=== PATIENT | male | born 1955 | race Caucasian/White ===

== ENCOUNTER 2016-09-08 19:26 | Emergency (ER) | payer OTHER ==
[~2016-09-08] VITALS: Ht 188 cm; Wt 115.0 kg
[~2016-09-08 19:26] MED LIST: ATOR10 PO; CALA120T PO; CARD8TAB6 PO; CLON.2 PO; HYDR10TA16 PO; LISI10TA PO; NAPR500 PO; RANI150 PO; XANA1TAB6 PO
[2016-09-08 19:27] VITALS: BP 137/79; PULSE 98; RESP 18; TEMP 97.9; O2SAT 98
[2016-09-08] MEDS ORDERED: HYDR-3533 PO ×2 (20:33→20:40)
[2016-09-08] MEDS ORDERED: ROBA750T PO ×2 (20:33→20:40)
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
[2016-09-08] MEDS ORDERED: HYDROmorphone HCL PF 1 MG/ML VIAL IV ONE (20:45)
[2016-09-08] MEDS ORDERED: PROMETHAZINE INJ 25 MG/ML VIAL IM ONE (20:45)
[2016-09-08] MEDS ORDERED: VERA120T3 PO (20:59)
[2016-09-08] MEDS ORDERED: LISI10TA PO (20:59)
[2016-09-08] MEDS ORDERED: ZANT150T2 PO (20:59)
[2016-09-08] MEDS ORDERED: CARD8TAB2 PO (20:59)
[2016-09-08] MEDS ORDERED: XANA1TAB2 PO (20:59)
[2016-09-08] MEDS ORDERED: CLON0.2T PO (20:59)
[2016-09-08 21:21] VITALS: RESP 18
[2016-09-08 21:22] VITALS: BP 141/68
[2017-01-07] MEDS ORDERED: COMMODE 3-IN-11 MIS (12:39)
[2017-01-07] MEDS ORDERED: WHEEMIS3 (12:39)
[2017-01-09] MEDS ORDERED: XANA1TAB2 PO (10:40)
[2017-01-09] MEDS ORDERED: POTA10CA PO (10:40)
[2017-01-09] MEDS ORDERED: DEXA0.5T PO (10:40)
[2017-01-09] MEDS ORDERED: SERT-129 PO (10:40)
[2017-01-09] MEDS ORDERED: GABA100C4 PO (10:40)
[2017-01-09] MEDS ORDERED: QUET1TAB7 PO (10:40)
[2017-01-09] MEDS ORDERED: CEFT2INJ2 IV (10:40)
[2017-01-09] MEDS ORDERED: DILT-60 PO (10:40)
[2017-01-09] MEDS ORDERED: OXYC-392 PO (10:40)
[2017-01-09] MEDS ORDERED: ASPI81TA11 PO (10:40)
[2017-01-09] MEDS ORDERED: ZANT150T2 PO (10:40)
[2017-01-09] MEDS ORDERED: METO25TA3 PO (10:40)
[2017-01-09] MEDS ORDERED: MORP1TAB24 PO (10:40)
[2017-01-09] MEDS ORDERED: DOCU1CAP39 PO (10:40)
[2017-02-07] MEDS ORDERED: MORP1TAB24 PO (13:47)
[2017-02-07] MEDS ORDERED: OXYC-395 PO (13:47)
[2017-02-07] MEDS ORDERED: HYDR12.57 PO (13:47)
== END 2016-09-08 21:23 | disposition home or self-care (01) ==
LOC: NEPB 19:26
DX: M54.5 Low back pain (principal); M19.90 Unspecified osteoarthritis, unspecified site; F41.9 Anxiety disorder, unspecified; E78.00 Pure hypercholesterolemia, unspecified; I10 Essential (primary) hypertension; F17.210 Nicotine dependence, cigarettes, uncomplicated
CPT/HCPCS: 96372; 99283; J1170; J2550

== ENCOUNTER 2016-10-10 14:47 | Emergency (ER) | payer OTHER ==
[~2016-10-10] VITALS: Ht 185.4 cm; Wt 110.0 kg
[~2016-10-10 14:47] MED LIST changes: -ATOR10 PO; -CALA120T PO; +CARD8TAB2 PO; -CARD8TAB6 PO; -CLON.2 PO; +CLON0.2T PO; +HYDR-3533 PO; -HYDR10TA16 PO; -NAPR500 PO; -RANI150 PO; +ROBA750T PO; +VERA120T3 PO; +XANA1TAB2 PO; -XANA1TAB6 PO; +ZANT150T2 PO
[2016-10-10 14:50] VITALS: BP 122/70; PULSE 88; RESP 14; TEMP 98.4; O2SAT 95
[2017-01-07] MEDS ORDERED: WHEEMIS3 (12:39)
[2017-01-07] MEDS ORDERED: COMMODE 3-IN-11 MIS (12:39)
[2017-01-09] MEDS ORDERED: DEXA0.5T PO (10:40)
[2017-01-09] MEDS ORDERED: QUET1TAB7 PO (10:40)
[2017-01-09] MEDS ORDERED: CEFT2INJ2 IV (10:40)
[2017-01-09] MEDS ORDERED: DOCU1CAP39 PO (10:40)
[2017-01-09] MEDS ORDERED: METO25TA3 PO (10:40)
[2017-01-09] MEDS ORDERED: POTA10CA PO (10:40)
[2017-01-09] MEDS ORDERED: ASPI81TA11 PO (10:40)
[2017-01-09] MEDS ORDERED: DILT-60 PO (10:40)
[2017-01-09] MEDS ORDERED: SERT-129 PO (10:40)
[2017-01-09] MEDS ORDERED: MORP1TAB24 PO (10:40)
[2017-01-09] MEDS ORDERED: OXYC-392 PO (10:40)
[2017-01-09] MEDS ORDERED: ZANT150T2 PO (10:40)
[2017-01-09] MEDS ORDERED: XANA1TAB2 PO (10:40)
[2017-01-09] MEDS ORDERED: GABA100C4 PO (10:40)
[2017-02-07] MEDS ORDERED: HYDR12.57 PO (13:47)
[2017-02-07] MEDS ORDERED: MORP1TAB24 PO (13:47)
[2017-02-07] MEDS ORDERED: OXYC-395 PO (13:47)
== END 2016-10-10 22:00 | disposition left against medical advice (07) ==
LOC: NED 14:47
DX: M54.9 Dorsalgia, unspecified (principal); Z53.21 Procedure and treatment not carried out due to patient leaving prior to being seen by health care provider
CPT/HCPCS: 99281

== ENCOUNTER 2016-12-17 14:20 | Inpatient (IN) | payer OTHER ==
[~2016-12-17] VITALS: Ht 188 cm; Wt 114.3 kg
[~2016-12-17 14:20] MED LIST changes: -AMLO10 PO; -ASPI81TA11 PO; -CEFT2INJ2 IV; -COMMODE 3-IN-11 MIS; -DEXA0.5T PO; -DEXA4TAB PO; -DILT-60 PO; -DOCU1CAP39 PO; -GABA100C4 PO; -GADOBENATE DIM PF 529 MG/ML 5 ML VIAL (for RAD MRI) IV ONE; -HYDR12.57 PO; -LISI20TA PO; -METO-309 PO; -METO25TA3 PO; -MORP1CAP62 PO; -MORP1TAB24 PO; -NAPR500T PO; -OXYC-392 PO; -OXYC-395 PO; -POTA10CA PO; -QUET1TAB7 PO; -SERT-129 PO; -TRIA1TAB5 PO; -WHEEMIS3
[2016-12-17 14:22] VITALS: BP_SYST 86; BP_SYST 98; BP_DIAS 57; BP_DIAS 61; PULSE 80; RESP 17; TEMP 98.2; O2SAT 98
[2016-12-17] MEDS ORDERED: SODIUM CHLOR 0.9% 1000 ML INJ 1,000 ML IV SCH (14:26)
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
[2016-12-17] MEDS ORDERED: VANCOMYCIN INJ 1,000 MG in SODIUM CHLOR 0.9% 250 ML INJ 250 ML IV ONE (14:30)
[2016-12-17] MEDS ORDERED: SERT-129 PO (14:32)
[2016-12-17] MEDS ORDERED: TRIA1TAB5 PO (14:32)
[2016-12-17] MEDS ORDERED: LISI20TA PO (14:32)
[2016-12-17] MEDS ORDERED: NAPR500T PO (14:32)
[2016-12-17] MEDS ORDERED: MORP1CAP62 PO (14:33)
[2016-12-17 14:36] VITALS: O2SAT 98
[2016-12-17] MEDS ORDERED: HYDROmorphone HCL PF 1 MG/ML VIAL IV PUSH ONE (14:45)
[2016-12-17 14:50] LABS: AUTOMATED NEUTROPHIL # 12.2 TH/MM3 (1.8-7.7); BASOPHIL # 0.1 TH/MM3 (0-0.2); BASOPHIL % 0.6 % (0.0-2.0); EOSINOPHIL % 0.2 % (0.0-4.0); HEMATOCRIT 34.9 % (39.0-51.0); HEMO FLAGS DIFF FINAL; LYMPH % 8.4 % (9.0-44.0); LYMPHOCYTE # 1.2 TH/MM3 (1.0-4.8); MEAN CELL VOLUME 77.6 FL (80.0-100.0); MEAN CORPUSCULAR HEMOGLOBIN 25.4 PG (27.0-34.0); MEAN CORPUSCULAR HGB CONC 32.8 % (32.0-36.0); MONO % 9.2 % (0.0-8.0); NEUT % 81.6 % (16.0-70.0); PLATELET COUNT 472 TH/MM3 (150-450); RED CELL DISTRIBUTION WIDTH 16.4 % (11.6-17.2); WHITE BLOOD COUNT 14.9 TH/MM3 (4.0-11.0)
[2016-12-17 15:00] LABS: APTT (PATIENT) 27.3 SEC (24.3-30.1); PROTHROMBIN TIME - PATIENT 11.6 SEC (9.8-11.6)
[2016-12-17 15:27] LABS: ALT (GPT) 12 U/L (12-78); ANION GAP 14 MEQ/L (5-15); AST (GOT) 19 U/L (15-37); BICARBONATE 24.6 MEQ/L (21.0-32.0); BLOOD UREA NITROGEN 40 MG/DL (7-18); CHLORIDE 95 MEQ/L (98-107); GLOMERULAR FILTRATION RATE 25 ML/MIN (>89); POTASSIUM 3.8 MEQ/L (3.5-5.1); SODIUM (NA) 134 MEQ/L (136-145)
[2016-12-17 15:29] LABS: ALKALINE PHOSPHATASE 102 U/L (45-117); TOTAL BILIRUBIN ADULT 0.6 MG/DL (0.2-1.0)
[2016-12-17] MEDS ORDERED: VANCOMYCIN INJ 1,000 MG in SODIUM CHLOR 0.9% 250 ML INJ 250 ML IV STA (16:20)
[2016-12-17] MEDS ORDERED: PIPERACIL-TAZO 4.5 GM PREMIX 100 ML IV STA (16:20)
[2016-12-17] MEDS ORDERED: SODIUM CHLOR 0.9% 1000 ML INJ 1,000 ML IV ONE (16:30)
[2016-12-17 16:43] LABS: LACTIC ACID GHOST NOT REPORTABLE
--- NOTE | 2016-12-17 17:29 | PD ---
Physical Exam Exam Limitations: Uncooperative Narrative GENERAL: Well-nourished, well-developed patient. SKIN: Warm and dry. HEAD: Normocephalic and atraumatic. EYES: No injection or drainage. ENT: No nasal drainage noted. NECK: Supple, trachea midline. CARDIOVASCULAR: Regular rate and rhythm RESPIRATORY: no increased effort. No accessory muscle use. GASTROINTESTINAL: Abdomen soft, non-tender, nondistended. NEUROLOGICAL: Awake and alert. Patient able to lift both legs off the bed but states he is having difficulty with this secondary to pain and unable to get a good neuro exam. Notes sensation is grossly intact Data Data Last Documented VS Vital Signs Date Time Temp Pulse Resp B/P Pulse Ox O2 Delivery O2 Flow Rate FiO2 12/17/16 14:36 98 Room Air 12/17/16 14:26 80 17 12/17/16 14:22 98.2 98/57 Orders Complete Blood Count With Diff (12/17/16 14:26) Comprehensive Metabolic Panel (12/17/16 14:26) Prothrombin Time / Inr (Pt) (12/17/16 14:26) Act Partial Throm Time (Ptt) (12/17/16 14:26) Lactic Acid Sepsis Protocol (12/17/16 14:26) Blood Culture (12/17/16 14:26) Ecg Monitoring (12/17/16 14:26) Iv Access Insert/Monitor (12/17/16 14:26) Oximetry (12/17/16 14:26) Vancomycin Inj (Vancomycin Inj) (12/17/16 14:30) Sodium Chlor 0.9% 1000 Ml Inj (Ns 1000 M (12/17/16 14:26) Hydromorphone Pf Inj (Dilaudid Pf Inj) (12/17/16 14:45) Sodium Chlor 0.9% 1000 Ml Inj (Ns 1000 M (12/17/16 16:30) Piperacil-Tazo 4.5 Gm Premix (Zosyn 4.5 (12/17/16 16:20) Vancomycin Inj (Vancomycin Inj) (12/17/16 16:20) NPO (12/17/16 16:20) Consult Neurosurgery (12/17/16 ) Admit Order (Ed Use Only) (12/17/16 16:46) Labs Laboratory Tests Test 4/25/17 4/25/17 14:35 14:40 Prothrombin Time 11.6 SEC Prothromb Time International 1.0 RATIO Ratio Activated Partial 27.3 SEC Thromboplast Time Sodium Level 134 MEQ/L Potassium Level 3.8 MEQ/L Chloride Level 95 MEQ/L Carbon Dioxide Level 24.6 MEQ/L Anion Gap 14 MEQ/L Blood Urea Nitrogen 40 MG/DL Creatinine 2.60 MG/DL Estimat Glomerular Filtration 25 ML/MIN Rate Random Glucose 114 MG/DL Calcium Level 10.1 MG/DL Total Bilirubin 0.6 MG/DL Aspartate Amino Transf 19 U/L (AST/SGOT) Alanine Aminotransferase 12 U/L (ALT/SGPT) Alkaline Phosphatase 102 U/L Total Protein 8.4 GM/DL Albumin 3.1 GM/DL White Blood Count 14.9 TH/MM3 Red Blood Count 4.50 MIL/MM3 Hemoglobin 11.4 GM/DL Hematocrit 34.9 % Mean Corpuscular Volume 77.6 FL Mean Corpuscular Hemoglobin 25.4 PG Mean Corpuscular Hemoglobin 32.8 % Concent Red Cell Distribution Width 16.4 % Platelet Count 472 TH/MM3 Mean Platelet Volume 7.6 FL Neutrophils (%) (Auto) 81.6 % Lymphocytes (%) (Auto) 8.4 % Monocytes (%) (Auto) 9.2 % Eosinophils (%) (Auto) 0.2 % Basophils (%) (Auto) 0.6 % Neutrophils # (Auto) 12.2 TH/MM3 Lymphocytes # (Auto) 1.2 TH/MM3 Monocytes # (Auto) 1.4 TH/MM3 Eosinophils # (Auto) 0.0 TH/MM3 Basophils # (Auto) 0.1 TH/MM3 CBC Comment DIFF FINAL Differential Comment Lactic Acid Level 2.2 mmol/L [facility] Supervised Visit with KEYLA: Yes Interpretation(s) CBC & BMP Diagram 12/17/16 14:35 12/17/16 14:40 MRI with discitis from outpatient, lactic elevation noted Narrative Course I, Dr. stuart, have reviewed the advance practice practitioner's documentation and am in agreement, met with the patient face to face, made the diagnosis, and the medical decision making was done by me. *My assessment and Findings: 61 y/o male presents with abnormal outpatient MRI with discitis without incontinence with pain and weakness. Case discussed with interventional radiology who discuss with orthopedic physician and was recommended to discuss with neurosurgeon. Patient updated and agrees to admission to the hospital with neurosurgery consultation and antibiotic therapy. at bedside, broad-spectrum antibiotics and IV fluids given Sepsis Criteria SIRS Criteria (2 or more): WBC > 83186, < 4000 or > 10% bands Sepsis Criteria (SIRS+source): Infect source susp/known Severe Sepsis (+one): Lactate >[address] Physician Communication [address] Dr[address] Sanabria states to discuss with neurosurgery after discussion with Dr. Celio gaxiola states keep nothing by mouth and will follow and agrees to broad- spectrum antibiotics Dr. morel agrees to admission Diagnosis Primary Impression: Discitis of lumbar region Additional Impression: Osteomyelitis of lumbar spine Admitting Information Admitting Physician Requests: Admit Nancy Stuart MD Dec 17, 2016 17:29
[2016-12-17] MEDS: SODIUM CHLOR 0.9% 1000 ML INJ 1,000 ML IV SCH (17:34)
[2016-12-17] MEDS ORDERED: ACETAMINOPHEN 325 MG TAB PO PRN ×2 (17:45)
[2016-12-17] MEDS ORDERED: NALOXONE HCL 0.4 MG/ML AMP IV PRN (17:45)
[2016-12-17] MEDS ORDERED: MAGNESIUM HYDROXIDE SUSP 30 ML CUP PO PRN (17:45)
[2016-12-17] MEDS ORDERED: ONDANSETRON HCL 4 MG/2 ML VIAL IVP PRN (17:45)
--- NOTE | 2016-12-17 17:51 | HHI.HP ---
[facility] Primary [facility]ician Ricardo Thurston DO Admission Diagnosis discitis Diagnoses: Chief Complaint: Back pain Travel History International Travel<30 Days: No Contact w/Intl Traveler <30 Da: No Traveled to Known Affected Are: No History of Present Illness 61-year-old male with past medical history of discitis/osteomyelitis, HTN, PTSD , hep C, GERD, OA, chronic pain who presented with worsening lower back pain. Currently the patient is oriented to self, knows he is in the hospital, and the years 2016. However the patient currently believes he is in a hospital in [place] and still lives in [place], and he currently lives in [place]. Also states that the month is December. The patient asks that I get the past medical history from his significant other at bedside. The patient's significant other states that they've been together for 20 years and she is his designated decision maker. Reviewed records from previous hospitalization with the patient's significant other. Apparently in September the patient had a mechanical fall on his knees. He does have a history of bilateral knee replacement. He states that he had an x-ray done of his knees and that was fine. However, afterwards he began to have lower back pain. The patient denies any acute injury to his back, or any injuries that could've caused breaks in the skin. His PCP ordered an MRI which showed possible abscess on the lumbar spine with suggestion of discitis/ osteomyelitis. He went to [facility] for treatment. He had a CT-guided drainage of the lumbar abscess, which apparently grew no organisms. The patient was was seen by infectious disease there and given IV ceftriaxone from to 12/08. Apparently since that previous admission he has been doing worse with regards to back pain and weakness. They report that he did not have a follow-up appointment set up with infectious disease. He is seen pain management who has put him on long-acting morphine. He was eventually referred to orthopedic spine surgery with Dr. Mora who ordered a lumbar MRI to assess for clearing of the infection. The patient was referred to the ED because repeat lumbar MRI continues to show signs of discitis/osteomyelitis. The patient complains of pain in his bilateral lower back that radiates down both legs. He denies any numbness or tingling of his legs. He does have a hard time walking due to the back pain. He has weakness of his legs, that he attributes to pain. The patient denies any fever, chills, incontinence, nausea , vomiting, diarrhea. He does report decreased oral intake recently. The patient does admit to me that he injected liquid morphine last year. Interventional radiology was contacted from the ED, reports they're unable to perform drainage of spinal lesion and recommends neurosurgery evaluation. Reportedly IR talked to orthopedics spine surgery as well who agreed. Neurosurgery, Dr. Powell, was contacted who recommended nothing by mouth and a dose of antibiotics. Review of Systems Except as stated in HPI: all other systems reviewed are Neg Past Family Social History Past Medical History Hypertension Anxiety/depression/PTSD GERD Hepatitis C Osteoarthritis with chronic pain Discitis/osteomyelitis of the lumbar spine Past Surgical History Cholecystectomy Bilateral knee replacement Tonsils and adenoids Reported Medications Morphine ER 24 HR (Morphine Sulfate) 20 Mg Caper 20 Mg PO DAILY Sertraline (Sertraline HCl) 100 Mg Tab 100 Mg PO DAILY Lisinopril-Hctz 20-12.5 Mg Tab 1 Tab PO BID Naproxen 500 Mg Tab 500 Mg PO BID Clonidine (Clonidine HCl) 0.2 Mg Tab 0-2 Mg PO DAILY Verapamil (Verapamil HCl) 120 Mg Tab 120 Mg PO Q8H Zantac (Ranitidine HCl) 150 Mg Tab 150 Mg PO DAILY Cardura (Doxazosin Mesylate) 8 Mg Tab 8 Mg PO DAILY Xanax (Alprazolam) 1 Mg Tab 1 Mg PO Q6H PRN Allergies: Coded Allergies: Toradol (Unverified Allergy, Severe, RASH, 12/17/16) Active Ordered Medications Current Medications Medications (Trade) Dose Ordered Sig/Geen Route Start Time Stop Time Status Last Admin (Xanax) 1 mg Q6H PRN PO 12/17/16 17:45 UNV (Zoloft) 100 mg DAILY PO 12/18/16 09:00 UNV Non-Formulary Medication 20 mg DAILY PO 12/18/16 09:00 UNV Non-Formulary Medication 150 mg 150 mg DAILY PO 12/18/16 09:00 UNV (NS 1000 ml Inj) 1,000 ml @ 100 mls/hr Q10H IV 12/17/16 17:34 UNV (NS Flush) 2 ml UNSCH PRN IV FLUSH 12/17/16 17:45 UNV (NS Flush) 2 ml BID IV FLUSH 12/17/16 21:00 UNV (Tylenol) 650 mg Q4H PRN PO 12/17/16 17:45 UNV (Zofran Inj) 4 mg Q6H PRN IVP 12/17/16 17:45 UNV (Colace) 100 mg Q12H PO 12/17/16 17:45 UNV (Milk Of Magnesia Liq) 30 ml Q12H PRN PO 12/17/16 17:45 UNV (Tylenol) 650 mg Q6H PRN PO 12/17/16 17:45 UNV (Roxicodone) 10 mg Q4H PRN PO 12/17/16 17:45 UNV (Roxicodone) 5 mg Q4H PRN PO 12/17/16 17:45 UNV (Narcan Inj) 0.4 mg UNSCH PRN IV 12/17/16 17:45 UNV (Catapres) 0.1 mg Q6H PRN PO 12/17/16 17:45 UNV Family History Father at age 87 and was an alcoholic and a cancer survivor Mother at age 63 after his stroke Social History Lives in apartment with his significant other Occasional tobacco use 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 In no acute distress. Oriented to person, hospital, and year; not oriented to city, month, home address SKIN: Warm and dry. No lesions noted. HEENT: Normocephalic. Pupils equal and round. Mucous membranes pink and moist. CARDIOVASCULAR: Regular rate and rhythm. No murmur appreciated. RESPIRATORY: No accessory muscle use. Clear to auscultation. Breath sounds equal bilaterally. GASTROINTESTINAL: Abdomen soft, non-tender, nondistended. Bowel sounds x4. MUSCULOSKELETAL: No obvious deformities. No clubbing or cyanosis. No edema. Negative straight leg raise. NEUROLOGICAL: Awake and alert. Moves upper and lower extremities spontaneously. Sensation grossly intact in lower extremities. Good strength with dorsi and plantar flexion. Decreased strength at the hips. Upper extremity strength normal. Normal speech. PSYCHIATRIC: A bit confused but appropriate mood and affect; insight and judgment limited. Laboratory Laboratory Tests Test 12/17/16 12/17/16 14:35 14:40 Prothrombin Time 11.6 Prothromb Time International 1.0 Ratio Activated Partial 27.3 Thromboplast Time Sodium Level 134 Potassium Level 3.8 Chloride Level 95 Carbon Dioxide Level 24.6 Anion Gap 14 Blood Urea Nitrogen 40 Creatinine 2.60 Estimat Glomerular Filtration 25 Rate Random Glucose 114 Calcium Level 10.1 Total Bilirubin 0.6 Aspartate Amino Transf 19 (AST/SGOT) Alanine Aminotransferase 12 (ALT/SGPT) Alkaline Phosphatase 102 Total Protein 8.4 Albumin 3.1 White Blood Count 14.9 Red Blood Count 4.50 Hemoglobin 11.4 Hematocrit 34.9 Mean Corpuscular Volume 77.6 Mean Corpuscular Hemoglobin 25.4 Mean Corpuscular Hemoglobin 32.8 Concent Red Cell Distribution Width 16.4 Platelet Count 472 Mean Platelet Volume 7.6 Neutrophils (%) (Auto) 81.6 Lymphocytes (%) (Auto) 8.4 Monocytes (%) (Auto) 9.2 Eosinophils (%) (Auto) 0.2 Basophils (%) (Auto) 0.6 Neutrophils # (Auto) 12.2 Lymphocytes # (Auto) 1.2 Monocytes # (Auto) 1.4 Eosinophils # (Auto) 0.0 Basophils # (Auto) 0.1 CBC Comment DIFF FINAL Differential Comment Lactic Acid Level 2.2 Date/Time Procedure Status Source Growth 12/17/16 14:40 Aerobic Blood Culture Received Blood Peripheral Pending 12/17/16 14:40 Anaerobic Blood Culture Received Blood Peripheral Pending Result Diagram: 12/17/16 1440 12/17/16 1435 Assessment and Plan Assessment and Plan 61-year-old male with past medical history of discitis/osteomyelitis, HTN, PTSD , hep C, GERD, OA, chronic pain who presented with worsening lower back pain L2-3 discitis/osteomyelitis: Failed treatment with IV ceftriaxone. IVDA hx. Previous MRI results as well as MRI 4/25 reviewed. Afebrile. WBC 14.9. Lactic acid 2.2. Associated hypotension and confusion. -Neurosurgery consulted -Consult ID -Continue IV antibiotics -Check ESR and CRP -Pain control with home morphine and oral oxycodone for pain scale -Obtain records from previous hospitalization Acute kidney injury: Likely secondary to decreased oral intake. Creatinine 2.6 , previously 2.25 earlier today, and previously 1.28 in 2009. IVF. Follow-up BMP. Hypotension with history of hypertension: Possibly from infection vs dehydration. Hold home antihypertensives for now. Clonidine as needed. Anxiety/depression/PTSD: Chronic. Continue home Xanax and sertraline. DVT prophylaxis: SCDs. Discussed Condition With Patient and significant other, ED PA, Dr. Pink Attending Statement seen and examined with at bedside- [patient awake but confused per MS- confusion for past 2 - 3 weeks- was admitted and got IV rocephin 2 gm from 10/18- 12/08- completed as OP continent of urine and stools no pain complains awake and alert but confused ff all commands lungs clear regular rhythm abdomen soft moves all extremities equally, sensory grossly intact Encephalopathy- multifactorial- from infection/sepsis/metabolic- KI SIRS- from disciitis ID and neurosurgery consulted Inability to ambulate declining from cane- walker and for the past 5 days unable to get up and ambulate- bed bound still continent of urine and stools per get PT evaluation Kidney insufficiency started on IVF ff BMP d/w her that neurosurgery and ID consulted The exam, history, and the medical decision-making described in the above note were completed with the assistance of the mid-level provider. I reviewed and agree with the findings presented. I attest that I had a [id number] encounter with the patient on the same day, and personally performed and documented my assessment and findings in the medical record. Clemente Verma Dec 17, 2016 17:51 Analy Pink MD Dec 17, 2016 18:47
[2016-12-17] MEDS ORDERED: Vancomycin Consult Pharmacy 1 EA OTHER SCH (18:00)
[2016-12-17 18:15] VITALS: BP 112/59; PULSE 67; RESP 16; O2SAT 96
[2016-12-17 21:28] VITALS: PULSE 67
[2016-12-17 21:35] VITALS: BP 132/73; PULSE 72; RESP 16; TEMP 98.1; O2SAT 95
[2016-12-17] MEDS: SODIUM CHLORIDE 0.9% FLUSH 10 ML FLUSH IV FLUSH SCH (22:52)
[2016-12-17] MEDS: DOCUSATE SODIUM 100 MG CAP PO SCH (22:52)
--- NOTE | 2016-12-17 23:10 | PD.CONS ---
History of Present Illness Service Neurosurgery Consult Requested By Medicine service Reason for Consult Discitis osteomyelitis Primary Care Physician Ricardo Thurston DO Diagnoses: History of Present Illness 61-year-old male who fell at his home in mid September with subsequent onset of progressive low back pain. He was admitted to [facility] towards the end of September and diagnosed with discitis-osteomyelitis and treated with 8 weeks of intravenous Rocephin which was completed approximately 10 days ago. He has continued to have progression of low back pain, and was seen by orthopedic surgery recently and sent for an MRI which was completed earlier today at [facility]. The study findings were reviewed by radiology and orthopedics, and the patient subsequently referred to the emergency room for admission and further evaluation. Review of Systems Constitutional: COMPLAINS OF: Weight loss, DENIES: Fever Eyes: DENIES: Blurred vision, Diplopia Ears, nose, mouth, throat: DENIES: Tinnitus, Hearing loss Respiratory: DENIES: Cough, Sputum production, Shortness of breath Cardiovascular: DENIES: Chest pain, Palpitations Gastrointestinal: DENIES: Abdominal pain, Diarrhea, Nausea Genitourinary: COMPLAINS OF: Urinary frequency, Urinary incontinence Musculoskeletal: COMPLAINS OF: Joint pain, Muscle aches, Back pain, DENIES: Neck pain Hematologic/lymphatic: DENIES: Bruising Neurologic: COMPLAINS OF: Abnormal gait, Headache, Poor Balance Memory loss Past Family Social History Allergies: Coded Allergies: Toradol (Unverified Allergy, Severe, RASH, 12/17/16) Past Medical History Hypertension Hepatitis C Anxiety, depression GERD Past Surgical History Bilateral knee arthroplasty Cholecystectomy Tonsillectomy Reported Medications Reported Meds & Active Scripts Active Reported Morphine ER 24 HR (Morphine Sulfate) 20 Mg Caper 20 Mg PO DAILY Sertraline (Sertraline HCl) 100 Mg Tab 100 Mg PO DAILY Lisinopril-Hctz 20-12.5 Mg Tab 1 Tab PO BID Naproxen 500 Mg Tab 500 Mg PO BID Clonidine (Clonidine HCl) 0.2 Mg Tab 0-2 Mg PO DAILY Verapamil (Verapamil HCl) 120 Mg Tab 120 Mg PO Q8H Zantac (Ranitidine HCl) 150 Mg Tab 150 Mg PO DAILY Cardura (Doxazosin Mesylate) 8 Mg Tab 8 Mg PO DAILY Xanax (Alprazolam) 1 Mg Tab 1 Mg PO Q6H PRN Family History Negative diabetes, cardiac disease History of CVA and his mother, cancer in his father Social History Denies IV drug abuse No alcohol or drug use Smokes cigarettes occasionally Physical Exam Vital Signs Vital Signs Date Time Temp Pulse Resp B/P Pulse Ox O2 Delivery O2 Flow Rate FiO2 12/17/16 21:35 98.1 72 16 132/73 95 12/17/16 18:15 67 16 112/59 96 Room Air 12/17/16 14:36 98 Room Air 12/17/16 14:26 80 17 12/17/16 14:22 98.2 80 17 98/57 98 Physical Exam GENERAL: This is a well-nourished, well-developed patient, in no apparent distress. SKIN: No rashes, ecchymoses or lesions. HEAD: Nontender. EYES: Sclerae are clear and nonicteric. No periorbital edema or ecchymosis ENT: No CSF otorrhea or rhinorrhea. NECK: Supple, nontender, no meningeal signs. CARDIOVASCULAR: Regular rate and rhythm without murmurs, gallops, or rubs. RESPIRATORY: Clear to auscultation. Breath sounds equal bilaterally. No wheezes , rales, or rhonchi. GASTROINTESTINAL: Abdomen soft, non-tender, nondistended. No hepato-splenomegaly , or palpable masses. No guarding. Normal bowel sounds MUSCULOSKELETAL: Extremities without cyanosis, or edema. No joint tenderness, effusion, or edema noted. No calf tenderness. Posterior tibial pulse 2+ bilateral NEUROLOGICAL: Awake and alert Moderate slowing of speech and thought processes Significant diminished recent and remote memory Follow simple commands with some difficulty Answers most simple questions appropriately Appears to have diminished judgment and insight Extraocular movements intact Facial motor movements symmetric Sensation intact light touch all extremities Strength normal major flexion and extension groups as well as hand intrinsics upper extremities Strength decreased 4/5 bilateral iliopsoas, quadriceps, hamstrings with 5 right , 4+ left gastrocsoleus and tibialis anterior Marian's response absent bilateral No ankle clonus Plantar response is neutral bilateral Laboratory Laboratory Tests Test 12/17/16 12/17/16 12/17/16 14:35 14:40 21:43 Prothrombin Time 11.6 Prothromb Time International 1.0 Ratio Activated Partial 27.3 Thromboplast Time Sodium Level 134 Potassium Level 3.8 Chloride Level 95 Carbon Dioxide Level 24.6 Anion Gap 14 Blood Urea Nitrogen 40 Creatinine 2.60 Estimat Glomerular Filtration 25 Rate Random Glucose 114 Calcium Level 10.1 Total Bilirubin 0.6 Aspartate Amino Transf 19 (AST/SGOT) Alanine Aminotransferase 12 (ALT/SGPT) Alkaline Phosphatase 102 C-Reactive Protein 18.00 Total Protein 8.4 Albumin 3.1 White Blood Count 14.9 Red Blood Count 4.50 Hemoglobin 11.4 Hematocrit 34.9 Mean Corpuscular Volume 77.6 Mean Corpuscular Hemoglobin 25.4 Mean Corpuscular Hemoglobin 32.8 Concent Red Cell Distribution Width 16.4 Platelet Count 472 Mean Platelet Volume 7.6 Neutrophils (%) (Auto) 81.6 Lymphocytes (%) (Auto) 8.4 Monocytes (%) (Auto) 9.2 Eosinophils (%) (Auto) 0.2 Basophils (%) (Auto) 0.6 Neutrophils # (Auto) 12.2 Lymphocytes # (Auto) 1.2 Monocytes # (Auto) 1.4 Eosinophils # (Auto) 0.0 Basophils # (Auto) 0.1 CBC Comment DIFF FINAL Differential Comment Erythrocyte Sedimentation Rate 75 Lactic Acid Level 2.2 0.5 Date/Time Procedure Status Source Growth 12/17/16 14:40 Aerobic Blood Culture Received Blood Peripheral Pending 12/17/16 14:40 Anaerobic Blood Culture Received Blood Peripheral Pending Result Diagram: 12/17/16 1440 12/17/16 1435 Imaging 12/17/2016 MRI lumbar spine with and without contrast Expand Beyond images are reviewed. The study reveals significant abnormal signal intensity with enhancement at the L2 and L3 vertebral bodies and disc space. There is apparent inflammatory debris extending from the disc space into the anterior spinal canal posterior to the L2 and L3 vertebral bodies causing some effacement of the ventral lateral thecal sac with AP thecal sack dimension approximately 8 mm at the L2-3 and L3 4 levels. There is severe L3 4 degenerative disc disease loss of intervertebral disc space height Mild to moderate chronic degenerative changes at L4 5 and L5-S1 levels without significant canal or foraminal stenosis.. Assessment and Plan Assessment and Plan Impression: 1. L2-3 discitis-osteomyelitis with mostly moderate canal stenosis. The degree of stenosis does not appear to be sufficient to cause cauda equina syndrome or significant nerve compression. There is some enhancement of the bilateral L4 nerve root extending into the thecal sac with probable nerve inflammation. Recommendations: Continue IV antibiotics per infectious disease recommendations. Discussed with emergency room physician. Obtain records from [facility] repeat L2-3 disc biopsy to assess for persistent active infection. Continue to mobilize cautiously with physical therapy. LSO brace Discussed Condition With Emergency room physician Pravin Powell MD Dec 17, 2016 23:10
[2016-12-18 00:29] LABS: AMPHETAMINE, URINE NEG (NEG); BARBITURATES, URINE NEG (NEG); COCAINE, URINE NEG (NEG)
[2016-12-18 00:39] LABS: BACTERIA, URINE RARE /hpf; BLOOD, URINE MOD (NEG); COMMENT (UR) CULT NOT INDICATED; CULTURE IF INDICATED CULT NOT INDICATED; GLUCOSE,URINE NEG (NEG); KETONE, URINE NEG (NEG); MUCUS URINE FEW /lpf (OCC); NITRITE,URINE NEG (NEG); PH, URINE 5.5 (5.0-8.5); SQUAMOUS EPITHELIAL CELL URINE <1 /hpf (0-5); URINE COLOR YELLOW (YELLW/STRAW)
[2016-12-18 01:31] VITALS: BP 115/63; PULSE 66; RESP 16; TEMP 98; O2SAT 93
[2016-12-18 05:28] VITALS: BP 129/76; PULSE 75; RESP 18; TEMP 97.2; O2SAT 96
[2016-12-18] MEDS: DOCUSATE SODIUM 100 MG CAP PO SCH ×2 (06:20→17:45)
[2016-12-18 08:00] VITALS: BP 157/94; PULSE 80; RESP 19; TEMP 98.3; O2SAT 96
[2016-12-18 08:11] LABS: AUTOMATED NEUTROPHIL # 8.6 TH/MM3 (1.8-7.7); BASOPHIL % 0.4 % (0.0-2.0); EOSINOPHIL # 0.1 TH/MM3 (0-0.4); EOSINOPHIL % 0.8 % (0.0-4.0); HEMATOCRIT 32.7 % (39.0-51.0); HEMO FLAGS DIFF FINAL; LYMPH % 10.9 % (9.0-44.0); LYMPHOCYTE # 1.2 TH/MM3 (1.0-4.8); MEAN CELL VOLUME 76.9 FL (80.0-100.0); MEAN CORPUSCULAR HEMOGLOBIN 25.8 PG (27.0-34.0); MEAN CORPUSCULAR HGB CONC 33.6 % (32.0-36.0); MONO % 11.1 % (0.0-8.0); NEUT % 76.8 % (16.0-70.0); PLATELET COUNT 434 TH/MM3 (150-450); RED BLOOD COUNT 4.26 MIL/MM3 (4.50-5.90); RED CELL DISTRIBUTION WIDTH 16.5 % (11.6-17.2); WHITE BLOOD COUNT 11.2 TH/MM3 (4.0-11.0)
[2016-12-18 08:30] VITALS: PULSE 75
[2016-12-18 08:34] LABS: ALKALINE PHOSPHATASE 98 U/L (45-117); ALT (GPT) 12 U/L (12-78); ANION GAP 10 MEQ/L (5-15); AST (GOT) 31 U/L (15-37); BICARBONATE 26.8 MEQ/L (21.0-32.0); BLOOD UREA NITROGEN 37 MG/DL (7-18); CHLORIDE 99 MEQ/L (98-107); GLOMERULAR FILTRATION RATE 34 ML/MIN (>89); POTASSIUM 3.2 MEQ/L (3.5-5.1); SODIUM (NA) 136 MEQ/L (136-145); TOTAL BILIRUBIN ADULT 0.7 MG/DL (0.2-1.0)
[2016-12-18] MEDS: SODIUM CHLORIDE 0.9% FLUSH 10 ML FLUSH IV FLUSH SCH ×2 (09:00→21:18)
[2016-12-18] MEDS: FAMOTIDINE 20 MG TAB PO SCH (09:36)
[2016-12-18] MEDS: SERTRALINE HCL 100 MG TAB PO SCH (09:36)
[2016-12-18] MEDS: MORPHINE SULFATE 15 MG CONTROLLED RELEASE TAB PO SCH ×2 (09:47→21:18)
--- NOTE | 2016-12-18 10:05 | HHI.PR ---
Subjective Remarks minimal back pain patient voiding spontaneously- no incontinence had a good BM this am history of sciatica no LE numbness or weakness a x ox 3 Objective Vitals Vital Signs Date Time Temp Pulse Resp B/P Pulse Ox O2 Delivery O2 Flow Rate FiO2 12/18/16 08:00 98.3 80 19 157/94 96 12/18/16 05:28 97.2 75 18 129/76 96 12/18/16 01:31 98.0 66 16 115/63 93 12/17/16 21:35 98.1 72 16 132/73 95 12/17/16 21:28 67 12/17/16 18:15 67 16 112/59 96 Room Air 12/17/16 14:36 98 Room Air 12/17/16 14:26 80 17 12/17/16 14:22 98.2 80 17 98/57 98 I/O 12/17/16 12/17/16 12/17/16 12/18/16 12/18/16 12/18/16 07:00 15:00 23:00 07:00 15:00 23:00 Intake Total 150 ml 1018 ml Output Total 200 ml 600 ml Balance -50 ml 418 ml Intake Oral 150 ml 200 ml IV Total 818 ml Output Urine Total 200 ml 600 ml # Bowel Movements 0 0 Result Diagram: 12/18/1671712/18/16717 Objective Remarks awake and alert, oriented x 3 anicteric no nuchal rigidity lungs clear regular rhythm abdomen soft, good bowel sounds extremities no edema- motor 5/5, grossly no sensory deficits, ++ DTRs A/P Assessment and Plan 61-year-old male with past medical history of discitis/osteomyelitis, HTN, PTSD , hep C, GERD, OA, chronic pain who presented with worsening lower back pain Encephalopathy- confusion- multifactorial-- improved likely from infection/sepsis/metabolic- KI SIRS- History of L2-L3 disciitis/OM- with modferate canal stenosis elevated ESR, CRP ID consulted- for need for antibiotics recommendations neurosurgery will be ff Inability to ambulate declining from cane- walker and for the past 5 days unable to get up and ambulate- bed bound- No fecal or urinary incontinence -PT consulted Acute Kidney insufficiency- non oliguric continue on IVF creatinine trending down Anxiety/depression/PTSD: Chronic. Continue home Xanax and sertraline. DVT prophylaxis: SCDs. Analy Pink MD Dec 18, 2016 10:05 moves all extremities equally, sensory grossly intact Encephalopathy- multifactorial- from infection/sepsis/metabolic- KI SIRS- from disciitis ID and neurosurgery consulted Inability to ambulate declining from cane- walker and for the past 5 days unable to get up and ambulate- bed bound still continent of urine and stools per get PT evaluation Kidney insufficiency started on IVF ff BMP d/w him that neurosurgery and ID consulted The exam, history, and the medical decision-making described in the above note were completed with the assistance of the mid-level provider. I reviewed and agree with the findings presented. I attest that I had a [id number] encounter with the patient on the same day, and personally performed and documented my assessment and findings in the medical record. Analy Pink MD Dec 18, 2016 10:05
[2016-12-18 12:00] VITALS: BP 130/86; PULSE 75; RESP 19; TEMP 97.5; O2SAT 98
--- NOTE | 2016-12-18 12:53 | PD.CONS ---
History of Present Illness Service Infectious disease Consult Requested By Dr Ben Pink Reason for Consult Evaluate patient with discitis Primary Care Physician Ricardo Thurston DO Diagnoses: History of Present Illness Patient seen and examined. Records reviewed. Patient is a 61-year-old male, presented to the hospital after he had an MRI of his lumbar spine. Problem started back in September when he started having problems with back pain. They initially presented to [place] at that time, but apparently waited for a while in the emergency room, and they subsequently left and presented to [facility] where he was admitted. He was found to have L2-L3 discitis, osteomyelitis. He was worked up, and underwent aspiration of the abnormality. According to the the patient was already on antibiotics by the time they did the biopsy. The Gram stain of the aspiration showed rare gram-negative rods, but the culture was negative. Infectious disease saw the patient during that hospitalization, and the patient was given IV Rocephin which he completed December 08. The patient was apparently going to [facility] on a daily basis and getting his IV antibiotic. Aspiration did not have any PICC line at that time. He continued to have the back pain, and his primary care physician referred him to on her orthopedic surgeon who didn't ordered the MRI. MRI was abnormal, and he was instructed to present to the hospital for further evaluation and treatment. There has been no fever or chills. Patient has been having problem with urination in that it takes a while for him to urinate. He never had any problem with urinary retention. He denies any respiratory complaint. He has not had any diarrhea. His repeat MRI showing evidence of discitis and osteomyelitis, and there is also some description of under a ventral epidural abscess. There is some spinal stenosis. Neurosurgery had seen the patient. Patient received vancomycin and Zosyn yesterday at around 7:00 PM. Since admission he has not been febrile. His WBC is elevated. Sedimentation rate is 75, and C-reactive protein is 18. Infectious disease consultation has been requested to evaluate the patient. Review of Systems Constitutional: COMPLAINS OF: Weight loss, Change in appetite, DENIES: Fever, Chills Eyes: DENIES: Eye pain Ears, nose, mouth, throat: DENIES: Oral lesions, Throat pain, Ear Pain, Sinus Pain, Toothache Respiratory: DENIES: Cough, Shortness of breath Cardiovascular: DENIES: Chest pain, Palpitations, Syncope Gastrointestinal: DENIES: Abdominal pain, Diarrhea, Nausea, Vomiting, Difficulty Swallowing Genitourinary: COMPLAINS OF: Urgency, DENIES: Dysuria Musculoskeletal: COMPLAINS OF: Joint Swelling, Back pain, DENIES: Neck pain Integumentary: DENIES: Rash Hematologic/lymphatic: DENIES: Lymphadenopathy Immunologic/allergic: DENIES: Urticaria Neurologic: DENIES: Headache, Localized weakness Psychiatric: DENIES: Confusion, Hallucinations Past Family Social History Allergies: Coded Allergies: Toradol (Unverified Allergy, Severe, RASH, 12/17/16) Past Medical History Hypertension Anxiety/depression/PTSD GERD Hepatitis C Osteoarthritis with chronic pain Discitis/osteomyelitis of the lumbar spine Past Surgical History Cholecystectomy Bilateral knee replacement Tonsils and adenoids Active Ordered Medications Tylenol Xanax Clonidine Colace Pepcid MOM Morphine Zofran Oxycodone Zoloft Vanco and Zosyn yesterday at 7 pm Social History Lives in apartment with his significant other Smokes 3 packs in 1 week 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 No generalized rash or ecchymosis. HEAD: Atraumatic. Normocephalic. No temporal or scalp tenderness. EYES: [place] conjunctivae, no petechia or hemorrhage. Pupils equal round and reactive. Extraocular motions intact. No scleral icterus. No injection or drainage. ENT: Nose without bleeding, or purulent drainage or septal hematoma. Moist oral mucosa. Throat without erythema, or exudate. Uvula midline. Airway patent. No teeth in the upper part. NECK: Trachea midline. No JVD . Has an indurated area below L submandibular area, that is not tender. Supple, nontender, no meningeal signs. CARDIOVASCULAR: Regular rate and rhythm without gallops, or rubs. ?soft murmur at base of the heart RESPIRATORY: Clear to auscultation. Breath sounds equal bilaterally. No wheezes , rales, or rhonchi. GASTROINTESTINAL: Abdomen soft, non-tender, nondistended. No hepato-splenomegaly , or palpable masses. No guarding. No rebound. Bowel sounds are present and normoactive. MUSCULOSKELETAL: Extremities without clubbing, cyanosis, or edema. No calf tenderness. He has scars in both knees compatible with his surgical history. The left knee is larger compared to the right knee. Has no pain in movement of his knee joints or hip joints. NEUROLOGICAL: Awake and alert. Cranial nerves II through XII intact. Five out of 5 muscle strength in all muscle groups. Normal speech. PSYCH: Normal affect, calm and cooperative. BACK: spine tenderness in lumbar region LINE: PIV with no evidence of infection Laboratory Laboratory Tests Test 12/17/16 12/17/16 12/17/16 12/18/16 14:35 14:40 21:43 00:10 Prothrombin Time 11.6 Prothromb Time International 1.0 Ratio Activated Partial 27.3 Thromboplast Time Sodium Level 134 Potassium Level 3.8 Chloride Level 95 Carbon Dioxide Level 24.6 Anion Gap 14 Blood Urea Nitrogen 40 Creatinine 2.60 Estimat Glomerular Filtration 25 Rate Random Glucose 114 Calcium Level 10.1 Total Bilirubin 0.6 Aspartate Amino Transf 19 (AST/SGOT) Alanine Aminotransferase 12 (ALT/SGPT) Alkaline Phosphatase 102 C-Reactive Protein 18.00 Total Protein 8.4 Albumin 3.1 White Blood Count 14.9 Red Blood Count 4.50 Hemoglobin 11.4 Hematocrit 34.9 Mean Corpuscular Volume 77.6 Mean Corpuscular Hemoglobin 25.4 Mean Corpuscular Hemoglobin 32.8 Concent Red Cell Distribution Width 16.4 Platelet Count 472 Mean Platelet Volume 7.6 Neutrophils (%) (Auto) 81.6 Lymphocytes (%) (Auto) 8.4 Monocytes (%) (Auto) 9.2 Eosinophils (%) (Auto) 0.2 Basophils (%) (Auto) 0.6 Neutrophils # (Auto) 12.2 Lymphocytes # (Auto) 1.2 Monocytes # (Auto) 1.4 Eosinophils # (Auto) 0.0 Basophils # (Auto) 0.1 CBC Comment DIFF FINAL Differential Comment Erythrocyte Sedimentation Rate 75 Lactic Acid Level 2.2 0.5 Urine Color YELLOW Urine Turbidity HAZY Urine pH 5.5 Urine Specific [place] 1.023 Urine Protein 30 Urine Glucose (UA) NEG Urine Ketones NEG Urine Occult Blood MOD Urine Nitrite NEG Urine Bilirubin NEG Urine Urobilinogen LESS THAN 2.0 Urine Leukocyte Esterase NEG Urine RBC 1 Urine WBC 2 Urine Squamous Epithelial <1 Cells Urine Bacteria RARE Urine Mucus FEW Microscopic Urinalysis Comment CULT NOT INDICATED Urine Opiates Screen POS Urine Barbiturates Screen NEG Urine Amphetamines Screen NEG Urine Benzodiazepines Screen POS Urine Cocaine Screen NEG Urine Cannabinoids Screen NEG Test 12/18/16 07:18 White Blood Count 11.2 Red Blood Count 4.26 Hemoglobin 11.0 Hematocrit 32.7 Mean Corpuscular Volume 76.9 Mean Corpuscular Hemoglobin 25.8 Mean Corpuscular Hemoglobin 33.6 Concent Red Cell Distribution Width 16.5 Platelet Count 434 Mean Platelet Volume 7.7 Neutrophils (%) (Auto) 76.8 Lymphocytes (%) (Auto) 10.9 Monocytes (%) (Auto) 11.1 Eosinophils (%) (Auto) 0.8 Basophils (%) (Auto) 0.4 Neutrophils # (Auto) 8.6 Lymphocytes # (Auto) 1.2 Monocytes # (Auto) 1.2 Eosinophils # (Auto) 0.1 Basophils # (Auto) 0.0 CBC Comment DIFF FINAL Differential Comment Sodium Level 136 Potassium Level 3.2 Chloride Level 99 Carbon Dioxide Level 26.8 Anion Gap 10 Blood Urea Nitrogen 37 Creatinine 1.99 Estimat Glomerular Filtration 34 Rate Random Glucose 100 Calcium Level 9.4 Total Bilirubin 0.7 Aspartate Amino Transf 31 (AST/SGOT) Alanine Aminotransferase 12 (ALT/SGPT) Alkaline Phosphatase 98 Total Protein 7.8 Albumin 2.8 Date/Time Procedure Status Source Growth 12/17/16 14:40 Aerobic Blood Culture - Preliminary Resulted Blood Peripheral NO GROWTH IN 1 DAY 12/17/16 14:40 Anaerobic Blood Culture - Preliminary Resulted Blood Peripheral NO GROWTH IN 1 DAY Result Diagram: 12/18/16 0718 12/18/16 0718 Assessment and Plan Assessment and Plan IMPRESSION L2-L3 discitis, osteomyelitis, S/P Rx with IV Rocephin - initial C/S neg, but G/S with rare GNR - worse clinically - repeat scan, findings ?same as previous MRI RECOMMENDATION Repeat 2 BC D/C all Abx Repeat aspirate of back - nned to wait 48-72 hours from last Abx dose which was give 12/17 at 7 pm Bladder scan to eval for retention Monitor progress Will determine course of Abx depending on results of work-up I will follow along with you Thank you for this consultation Discussed Condition With Explained plan to the patient and Discussed with RN9 Audrey Flores MD Dec 18, 2016 12:52
--- NOTE | 2016-12-18 15:44 | HHI.NSPN ---
(Mesfin Elaine) Note Status Status: Progress Note (Mesfin Elaine) Interval History Interval History 12/17: 61-year-old male who fell at his home in mid September with subsequent onset of progressive low back pain. He was admitted to [facility] towards the end of September and diagnosed with discitis-osteomyelitis and treated with 8 weeks of intravenous Rocephin which was completed approximately 10 days ago. He has continued to have progression of low back pain, and was seen by orthopedic surgery recently and sent for an MRI which was completed earlier today at [facility]. The study findings were reviewed by radiology and orthopedics, and the patient subsequently referred to the emergency room for admission and further evaluation. 12/18: Patient still with pain to the low back with radiation to the groins, numbness to groins persist. (Mesfin Elaine) Labs, Micro, & Vital Signs Results Allergies Coded Allergies Type Severity Reaction Last Updated Verified Toradol Allergy Severe RASH 12/17/16 No 12/16////// 06:00 18:00 06:00 18:00 06:00 18:00 Intake Total 968 ml 200 ml Output Total 200 ml 600 ml Balance 768 ml -400 ml Intake Oral 150 ml 200 ml IV Total 818 ml 0 ml Output Urine Total 200 ml 600 ml # Bowel Movements 0 0 Laboratory Tests Test 12/17/16 12/17/16 12/17/16 12/18/16 14:35 14:40 21:43 00:10 Prothrombin Time 11.6 SEC Prothromb Time International 1.0 RATIO Ratio Activated Partial 27.3 SEC Thromboplast Time Sodium Level 134 MEQ/L Potassium Level 3.8 MEQ/L Chloride Level 95 MEQ/L Carbon Dioxide Level 24.6 MEQ/L Anion Gap 14 MEQ/L Blood Urea Nitrogen 40 MG/DL Creatinine 2.60 MG/DL Estimat Glomerular Filtration 25 ML/MIN Rate Random Glucose 114 MG/DL Calcium Level 10.1 MG/DL Total Bilirubin 0.6 MG/DL Aspartate Amino Transf 19 U/L (AST/SGOT) Alanine Aminotransferase 12 U/L (ALT/SGPT) Alkaline Phosphatase 102 U/L C-Reactive Protein 18.00 MG/DL Total Protein 8.4 GM/DL Albumin 3.1 GM/DL White Blood Count 14.9 TH/MM3 Red Blood Count 4.50 MIL/MM3 Hemoglobin 11.4 GM/DL Hematocrit 34.9 % Mean Corpuscular Volume 77.6 FL Mean Corpuscular Hemoglobin 25.4 PG Mean Corpuscular Hemoglobin 32.8 % Concent Red Cell Distribution Width 16.4 % Platelet Count 472 TH/MM3 Mean Platelet Volume 7.6 FL Neutrophils (%) (Auto) 81.6 % Lymphocytes (%) (Auto) 8.4 % Monocytes (%) (Auto) 9.2 % Eosinophils (%) (Auto) 0.2 % Basophils (%) (Auto) 0.6 % Neutrophils # (Auto) 12.2 TH/MM3 Lymphocytes # (Auto) 1.2 TH/MM3 Monocytes # (Auto) 1.4 TH/MM3 Eosinophils # (Auto) 0.0 TH/MM3 Basophils # (Auto) 0.1 TH/MM3 CBC Comment DIFF FINAL Differential Comment Erythrocyte Sedimentation Rate 75 mm/hr Lactic Acid Level 2.2 mmol/L 0.5 mmol/L Urine Color YELLOW Urine Turbidity HAZY Urine pH 5.5 Urine Specific [place] 1.023 Urine Protein 30 mg/dL Urine Glucose (UA) NEG mg/dL Urine Ketones NEG mg/dL Urine Occult Blood MOD Urine Nitrite NEG Urine Bilirubin NEG Urine Urobilinogen LESS THAN 2.0 MG/DL Urine Leukocyte Esterase NEG Urine RBC 1 /hpf Urine WBC 2 /hpf Urine Squamous Epithelial <1 /hpf Cells Urine Bacteria RARE /hpf Urine Mucus FEW /lpf Microscopic Urinalysis Comment CULT NOT INDICATED Urine Opiates Screen POS Urine Barbiturates Screen NEG Urine Amphetamines Screen NEG Urine Benzodiazepines Screen POS Urine Cocaine Screen NEG Urine Cannabinoids Screen NEG Test 12/18/16 07:18 White Blood Count 11.2 TH/MM3 Red Blood Count 4.26 MIL/MM3 Hemoglobin 11.0 GM/DL Hematocrit 32.7 % Mean Corpuscular Volume 76.9 FL Mean Corpuscular Hemoglobin 25.8 PG Mean Corpuscular Hemoglobin 33.6 % Concent Red Cell Distribution Width 16.5 % Platelet Count 434 TH/MM3 Mean Platelet Volume 7.7 FL Neutrophils (%) (Auto) 76.8 % Lymphocytes (%) (Auto) 10.9 % Monocytes (%) (Auto) 11.1 % Eosinophils (%) (Auto) 0.8 % Basophils (%) (Auto) 0.4 % Neutrophils # (Auto) 8.6 TH/MM3 Lymphocytes # (Auto) 1.2 TH/MM3 Monocytes # (Auto) 1.2 TH/MM3 Eosinophils # (Auto) 0.1 TH/MM3 Basophils # (Auto) 0.0 TH/MM3 CBC Comment DIFF FINAL Differential Comment Sodium Level 136 MEQ/L Potassium Level 3.2 MEQ/L Chloride Level 99 MEQ/L Carbon Dioxide Level 26.8 MEQ/L Anion Gap 10 MEQ/L Blood Urea Nitrogen 37 MG/DL Creatinine 1.99 MG/DL Estimat Glomerular Filtration 34 ML/MIN Rate Random Glucose 100 MG/DL Calcium Level 9.4 MG/DL Total Bilirubin 0.7 MG/DL Aspartate Amino Transf 31 U/L (AST/SGOT) Alanine Aminotransferase 12 U/L (ALT/SGPT) Alkaline Phosphatase 98 U/L Total Protein 7.8 GM/DL Albumin 2.8 GM/DL Constitutional Vital Signs Date Time Temp Pulse Resp B/P Pulse Ox O2 Delivery O2 Flow Rate FiO2 12/18/16 12:00 97.5 75 19 130/86 98 12/18/16 08:00 98.3 80 19 157/94 96 12/18/16 05:28 97.2 75 18 129/76 96 12/18/16 01:31 98.0 66 16 115/63 93 12/17/16 21:35 98.1 72 16 132/73 95 12/17/16 21:28 67 12/17/16 18:15 67 16 112/59 96 Room Air 12/18/16 07:00 Intake Total 1168 ml Output Total 800 ml Balance 368 ml (Mesfin Elaine) Review of Systems/Exam ROS Constitutional: Denies any fever or sweats. Neuro: Numbness from lateral back around to groins bilaterally. Denies any headache or dizziness. Resp: Denies any shortness of breath or productive cough. Cardiac: Denies any chest pain, palpitations or irregular heart beat. GI: Denies any abdominal pain, nausea, vomiting or bowel incontinence. : Denies any bladder incontinence. Back: Pain across lower back. Extremities: Denies any weakness or pain to the arms or legs. Exam Constitutional: Well developed male, appears stated age, appears to be in pain but not distressed. HEENT: Normocephalic, atraumatic. PERRLA, EOM intact. Resp: CTAB w/o W/R/R, equal excursion, non-laboured, on RA. CV: S1S2 w/RRR w/o M/G/R, cap refill < 2 sec, radial & pedal pulses 2+ bilaterally, no pedal edema. GI: Abdomen soft, nontender, positive bowel sounds, no palpable masses or organomegaly. Extremities: Extremities normal, NTTP, no evident discolouration, deformity or clubbing. Back: TTP across lower back laterally. Neuro: AAOx3. Speech clear but with slow thought process, doesn't always answer question appropriately. Follows commands. Motor function 5/5 all major muscle flexion & extension groups. Decreased sensation from lateral lower back around to groin bilaterally. Face symmetrical. (Mesfin Elaine) Medications Current Medications Current Medications Medications (Trade) Dose Ordered Sig/Gene Route Start Time Stop Time Status Last Admin (Xanax) 1 mg Q6H PRN PO 12/17/16 17:45 (Zoloft) 100 mg DAILY PO 12/18/16 09:00 12/18/16 09:36 (Oramorph Sr) 15 mg BID PO 12/18/16 09:00 12/18/16 09:47 Famotidine 20 mg 20 mg DAILY PO 12/18/16 09:00 12/18/16 09:36 (NS 1000 ml Inj) 1,000 ml @ 100 mls/hr Q10H IV 12/17/16 17:34 12/17/16 17:34 (NS Flush) 2 ml UNSCH PRN IV FLUSH 12/17/16 17:45 (NS Flush) 2 ml BID IV FLUSH 12/17/16 21:00 12/18/16 09:00 (Tylenol) 650 mg Q4H PRN PO 12/17/16 17:45 (Zofran Inj) 4 mg Q6H PRN IVP 12/17/16 17:45 (Colace) 100 mg Q12H PO 12/17/16 17:45 12/18/16 06:20 (Milk Of [place] Liq) 30 ml Q12H PRN PO 12/17/16 17:45 (Tylenol) 650 mg Q6H PRN PO 12/17/16 17:45 (Roxicodone) 10 mg Q4H PRN PO 12/17/16 17:45 12/18/16 14:12 (Roxicodone) 5 mg Q4H PRN PO 12/17/16 17:45 (Narcan Inj) 0.4 mg UNSCH PRN IV 12/17/16 17:45 (Catapres) 0.1 mg Q6H PRN PO 12/17/16 17:45 (Mesfin Elaine) Medical Decision Making MDM Remarks Impression: L2-3 discitis-osteomyelitis with mostly moderate canal stenosis. The degree of stenosis does not appear to be sufficient to cause cauda equina syndrome or significant nerve compression. There is some enhancement of the bilateral L4 nerve root extending into the thecal sac with probable nerve inflammation. ( Mesfin Elaine) Plan Plan Remarks ID to repeat aspiration of back 48-72 hrs from last abx dose on 12/17 at 1900 D/C all abx at present Future abx per work up Repeat blood cultures Obtain records from [facility] Continue to mobilize cautiously with physical therapy LSO brace (Mesfin Elaine) Attending Statement I have personally seen and examined the patient on the date of this note. Pertinent documentation and study results have been reviewed by the undersigned. I have personally developed the treatment plan and performed medical decision making. Agree with findings, exam, and treatment plan as noted above. Infectious disease recommendations noted. (Pravin Powell MD) Mesfin Elaine Dec 18, 2016 15:44 Pravin Powell MD Dec 18, 2016 17:57
[2016-12-18] MEDS ORDERED: VANCOMYCIN 1,500 MG/NS 500 ML IV SCH ×2 (19:00)
[2016-12-18 20:00] VITALS: BP 177/90; PULSE 85; RESP 20; TEMP 98.3; O2SAT 96
[2016-12-18] MEDS: SODIUM CHLOR 0.9% 1000 ML INJ 1,000 ML IV SCH (21:13)
[2016-12-19] VITALS: BP 148/84; PULSE 75; RESP 20; TEMP 98.1; O2SAT 97
[2016-12-19 03:00] VITALS: PULSE 82
[2016-12-19 04:00] VITALS: BP 177/98; PULSE 78; RESP 20; TEMP 98.1; O2SAT 97
[2016-12-19] MEDS: DOCUSATE SODIUM 100 MG CAP PO SCH ×2 (05:45→16:57)
[2016-12-19] MEDS: SODIUM CHLOR 0.9% 1000 ML INJ 1,000 ML IV SCH ×2 (07:43→19:34)
[2016-12-19] MEDS: SODIUM CHLORIDE 0.9% FLUSH 10 ML FLUSH IV FLUSH SCH ×2 (07:44→20:59)
[2016-12-19 08:00] VITALS: BP 118/83; PULSE 73; PULSE 86; RESP 20; TEMP 98; O2SAT 98
[2016-12-19] MEDS: FAMOTIDINE 20 MG TAB PO SCH (08:03)
[2016-12-19] MEDS: SERTRALINE HCL 100 MG TAB PO SCH (08:03)
[2016-12-19] MEDS: MORPHINE SULFATE 15 MG CONTROLLED RELEASE TAB PO SCH ×2 (08:05→20:58)
--- NOTE | 2016-12-19 11:47 | HHI.NSPN ---
(Mesfin Elaine) Note Status Status: Progress Note (Mesfin Elaine) Interval History Interval History 12/17: 61-year-old male who fell at his home in mid September with subsequent onset of progressive low back pain. He was admitted to [facility] towards the end of September and diagnosed with discitis-osteomyelitis and treated with 8 weeks of intravenous Rocephin which was completed approximately 10 days ago. He has continued to have progression of low back pain, and was seen by orthopedic surgery recently and sent for an MRI which was completed earlier today at [facility]. The study findings were reviewed by radiology and orthopedics, and the patient subsequently referred to the emergency room for admission and further evaluation. 12/18: Patient still with pain to the low back with radiation to the groins, numbness to groins persist. 12/19: Patient awake & alert. Still with low back pain and numbness to the groins. Fixated on not receiving his home medications. (Mesfin Elaine) Labs, Micro, & Vital Signs Constitutional Vital Signs Date Time Temp Pulse Resp B/P Pulse Ox O2 Delivery O2 Flow Rate FiO2 12/19/16 08:00 86 12/19/16 08:00 98.0 73 20 118/83 98 12/19/16 07:15 Room Air 12/19/16 04:00 98.1 78 20 177/98 97 12/19/16 03:00 82 12/19/16 00:00 98.1 75 20 148/84 97 12/18/16 21:22 Room Air 12/18/16 20:00 98.3 85 20 177/90 96 12/18/16 12:00 97.5 75 19 130/86 98 12/19/16 07:00 Intake Total 1080 ml Output Total 1800 ml Balance -720 ml (Mesfin Elaine) Review of Systems/Exam ROS Constitutional: Denies any fever or sweats. Neuro: Numbness from lateral back around to groins bilaterally. Denies any headache or dizziness. Resp: Denies any shortness of breath or productive cough. Cardiac: Denies any chest pain, palpitations or irregular heart beat. GI: Denies any abdominal pain, nausea, vomiting or bowel incontinence. : Denies any bladder incontinence. Back: Pain across lower back. Extremities: Denies any weakness or pain to the arms or legs. Exam Constitutional: Well developed male, appears stated age, appears to be in pain but not distressed. HEENT: Normocephalic, atraumatic. PERRLA, EOM intact. Resp: CTAB w/o W/R/R, equal excursion, non-laboured, on RA. CV: S1S2 w/RRR w/o M/G/R, cap refill < 2 sec, radial & pedal pulses 2+ bilaterally, no pedal edema. GI: Abdomen soft, nontender, positive bowel sounds, no palpable masses or organomegaly. Extremities: Extremities normal, NTTP, no evident discolouration, deformity or clubbing. Back: TTP across lower back laterally. Neuro: AAOx3. Speech clear but with slow thought process, doesn't always answer question appropriately. Becomes fixated on issue even though it wasn't what was asked. Follows commands. Motor function 5/5 all major muscle flexion & extension groups. Decreased sensation from lateral lower back around to groin bilaterally. Face symmetrical. (Mesfin Elaine) Medications Current Medications Current Medications Medications (Trade) Dose Ordered Sig/Gene Route Start Time Stop Time Status Last Admin (Xanax) 1 mg Q6H PRN PO 12/17/16 17:45 (Zoloft) 100 mg DAILY PO 12/18/16 09:00 12/19/16 08:03 (Oramorph Sr) 15 mg BID PO 12/18/16 09:00 12/19/16 08:05 Famotidine 20 mg 20 mg DAILY PO 12/18/16 09:00 12/19/16 08:03 (NS 1000 ml Inj) 1,000 ml @ 100 mls/hr Q10H IV 12/17/16 17:34 12/19/16 07:43 (NS Flush) 2 ml UNSCH PRN IV FLUSH 12/17/16 17:45 (NS Flush) 2 ml BID IV FLUSH 12/17/16 21:00 12/19/16 07:44 (Tylenol) 650 mg Q4H PRN PO 12/17/16 17:45 (Zofran Inj) 4 mg Q6H PRN IVP 12/17/16 17:45 (Colace) 100 mg Q12H PO 12/17/16 17:45 12/18/16 17:45 (Milk Of Magnesia Liq) 30 ml Q12H PRN PO 12/17/16 17:45 (Tylenol) 650 mg Q6H PRN PO 12/17/16 17:45 (Roxicodone) 10 mg Q4H PRN PO 12/17/16 17:45 12/19/16 10:15 (Roxicodone) 5 mg Q4H PRN PO 12/17/16 17:45 (Narcan Inj) 0.4 mg UNSCH PRN IV 12/17/16 17:45 (Catapres) 0.1 mg Q6H PRN PO 12/17/16 17:45 (Mesfin Elaine) Medical Decision Making MDM Remarks Impression: L2-3 discitis-osteomyelitis with mostly moderate canal stenosis. The degree of stenosis does not appear to be sufficient to cause cauda equina syndrome or significant nerve compression. There is some enhancement of the bilateral L4 nerve root extending into the thecal sac with probable nerve inflammation. Gram positive cocci in clusters on blood culture from 12/17, no growth from those on 12/18. Pain not well controlled. (Mesfin Elaine) Plan Plan Remarks ID to repeat aspiration of back 48-72 hrs from last abx dose on 12/17 at 1900 D/C all abx at present Future abx per work up Obtain records from [facility] Continue to mobilize cautiously with physical therapy LSO brace (Mesfin Elaine) Attending Statement I have personally seen and examined the patient on the date of this note. Pertinent documentation and study results have been reviewed by the undersigned. I have personally developed the treatment plan and performed medical decision making. Agree with findings, exam, and treatment plan as noted above. Lower extremity neurologic exam remains intact Await follow-up biopsy (Pravin Powell MD) Mesfin Elaine Dec 19, 2016 11:47 Pravin Powell MD Dec 20, 2016 19:49
[2016-12-19 12:00] VITALS: BP 197/95; PULSE 78; RESP 20; TEMP 98.2; O2SAT 98
[2016-12-19] MEDS: cloNIDine HCL 0.1 MG TAB PO PRN (12:28)
--- NOTE | 2016-12-19 14:06 | HHI.PR ---
Subjective Remarks complains of low back pain- lumbar area- constant- non radiating voiding and having BM spontaneously denies any tingling or numbness of the LE Objective Vitals Vital Signs Date Time Temp Pulse Resp B/P Pulse Ox O2 Delivery O2 Flow Rate FiO2 12/19/16 12:00 98.2 78 20 197/95 98 12/19/16 08:00 86 12/19/16 08:00 98.0 73 20 118/83 98 12/19/16 07:15 Room Air 12/19/16 04:00 98.1 78 20 177/98 97 12/19/16 03:00 82 12/19/16 00:00 98.1 75 20 148/84 97 12/18/16 21:22 Room Air 12/18/16 20:00 98.3 85 20 177/90 96 I/O 12/18/16 12/18/16 12/18/16 12/19/16 12/19/16 12/19/16 07:00 15:00 23:00 07:00 15:00 23:00 Intake Total 1018 ml 720 ml 120 ml 240 ml Output Total 600 ml 750 ml 500 ml 550 ml 200 ml Balance 418 ml -30 ml -380 ml -310 ml -200 ml Intake Oral 200 ml 720 ml 120 ml 240 ml IV Total 818 ml 0 ml Output Urine Total 600 ml 750 ml 500 ml 550 ml 200 ml # Bowel Movements 0 Result Diagram: 12/18/1671712/18/16717 Objective Remarks awake and alert, oriented x 3 anicteric no nuchal rigidity lungs clear regular rhythm abdomen soft, good bowel sounds extremities no edema- motor 5/5, grossly no sensory deficits, ++ DTRs A/P Assessment and Plan 61-year-old male with past medical history of discitis/osteomyelitis, HTN, PTSD , hep C, GERD, OA, chronic pain who presented with worsening lower back pain Encephalopathy- confusion- multifactorial-- improved likely from infection/sepsis/metabolic- KI SIRS- History of L2-L3 disciitis/OM- with moderate canal stenosis elevated ESR, CRP ID recommendations appreciated- IR consulted for biopsy neurosurgery will be ff Inability to ambulate declining from cane- walker and for the past 5 days unable to get up and ambulate- bed bound- No fecal or urinary incontinence -PT ff Acute Kidney insufficiency- non oliguric continue on IVF creatinine trending down HYpertension- elevated BP readings now restart his CArdura at 4 mg hs start CCB- Procardia 30 mgXL today-and increase (at home was on Verapamil 120 mg bid) continue on Clonidine Anxiety/depression/PTSD: Chronic. Continue home Xanax and sertraline. DVT prophylaxis: SCDs. Analy Pink MD Dec 19, 2016 14:06
[2016-12-19] MEDS: NIFEdipine 30 MG SUSTAINED RELEASE TAB PO SCH (16:57)
[2016-12-19 17:33] LABS: PROTHROMBIN TIME - PATIENT 11.4 SEC (9.8-11.6)
[2016-12-19 17:46] LABS: BICARBONATE 25.8 MEQ/L (21.0-32.0); POTASSIUM 3.3 MEQ/L (3.5-5.1)
[2016-12-19 20:00] VITALS: BP 158/98; PULSE 88; RESP 20; TEMP 98.5; O2SAT 92
[2016-12-19] MEDS ORDERED: DOXAZOSIN MESYLATE 4 MG TAB PO SCH (21:00)
[2016-12-20] VITALS (13 sets, daily range): BP systolic 110–195; BP diastolic 57–105; PULSE 75–150; RESP 18–25; TEMP 97.7–99.3; O2SAT 94–98
[2016-12-20] MEDS: SODIUM CHLOR 0.9% 1000 ML INJ 1,000 ML IV SCH ×2 (05:34→17:30)
[2016-12-20] MEDS: DOCUSATE SODIUM 100 MG CAP PO SCH ×3 (05:45→19:54)
[2016-12-20] MEDS: SERTRALINE HCL 100 MG TAB PO SCH (08:08)
[2016-12-20] MEDS: FAMOTIDINE 20 MG TAB PO SCH (08:08)
[2016-12-20] MEDS: SODIUM CHLORIDE 0.9% FLUSH 10 ML FLUSH IV FLUSH SCH ×2 (08:08→19:58)
[2016-12-20] MEDS: NIFEdipine 30 MG SUSTAINED RELEASE TAB PO SCH (08:08)
[2016-12-20] MEDS: ALPRAZolam 1 MG TAB PO PRN ×2 (08:08→19:54)
[2016-12-20 08:32] LABS: AUTOMATED NEUTROPHIL # 9.6 TH/MM3 (1.8-7.7); BASOPHIL # 0.1 TH/MM3 (0-0.2); BASOPHIL % 0.5 % (0.0-2.0); EOSINOPHIL % 0.1 % (0.0-4.0); HEMATOCRIT 39.4 % (39.0-51.0); HEMO FLAGS DIFF FINAL; LYMPH % 8.8 % (9.0-44.0); MEAN CELL VOLUME 77.7 FL (80.0-100.0); MEAN CORPUSCULAR HEMOGLOBIN 25.6 PG (27.0-34.0); MONO % 7.6 % (0.0-8.0); PLATELET COUNT 534 TH/MM3 (150-450); RED BLOOD COUNT 5.08 MIL/MM3 (4.50-5.90); RED CELL DISTRIBUTION WIDTH 16.2 % (11.6-17.2); WHITE BLOOD COUNT 11.6 TH/MM3 (4.0-11.0)
[2016-12-20 09:00] LABS: BICARBONATE 24.9 MEQ/L (21.0-32.0)
[2016-12-20 09:11] LABS: POTASSIUM 2.6 MEQ/L (3.5-5.1)
[2016-12-20] MEDS ORDERED: POTASSIUM CHLORIDE INJ 30 MEQ in SODIUM CHLORIDE 0.9% INJ 100 ML IV-CENTRAL ONE (10:00)
[2016-12-20] MEDS: cloNIDine HCL 0.1 MG TAB PO PRN (10:16)
--- NOTE | 2016-12-20 10:18 | HHI.IDPN ---
Subjective Subjective Remarks Notes reviewed D/W RN BP running high this morning Also a little confused For asp/biopsy lumbar disc No fever Still C/O back pain and groin pain K very low this morning One (+) BC with Staph epi ESR 75 CRP 18 Antibiotics None Lines PIV Past Medical History Hypertension Anxiety/depression/PTSD GERD Hepatitis C Osteoarthritis with chronic pain Discitis/osteomyelitis of the lumbar spine Past Surgical History Cholecystectomy Bilateral knee replacement Tonsils and adenoids Allergies: Coded Allergies: Toradol (Unverified Allergy, Severe, RASH, 12/17/16) Objective . Vital Signs Date Time Temp Pulse Resp B/P Pulse Ox O2 Delivery O2 Flow Rate FiO2 12/20/16 09:36 180/104 12/20/16 08:00 98.0 93 18 158/102 97 12/20/16 04:00 98.0 78 20 164/86 97 12/20/16 00:18 Room Air 12/20/16 00:00 98.6 75 18 158/86 95 12/19/16 20:00 98.5 88 20 158/98 92 12/19/16 12:00 98.2 78 20 197/95 98 12/19/16 12/19/16 12/20/16 15:00 23:00 07:00 Intake Total 1330 ml 240 ml 0 ml Output Total 200 ml 375 ml 425 ml Balance 1130 ml -135 ml -425 ml Intake Oral 240 ml 0 ml IV Total 1330 ml Output Urine Total 200 ml 375 ml 425 ml # Bowel Movements 0 0 . Laboratory Tests Test 12/20/16 08:00 White Blood Count 11.6 TH/MM3 Red Blood Count 5.08 MIL/MM3 Hemoglobin 13.0 GM/DL Hematocrit 39.4 % Mean Corpuscular Volume 77.7 FL Mean Corpuscular Hemoglobin 25.6 PG Mean Corpuscular Hemoglobin 33.0 % Concent Red Cell Distribution Width 16.2 % Platelet Count 534 TH/MM3 Mean Platelet Volume 7.9 FL Neutrophils (%) (Auto) 83.0 % Lymphocytes (%) (Auto) 8.8 % Monocytes (%) (Auto) 7.6 % Eosinophils (%) (Auto) 0.1 % Basophils (%) (Auto) 0.5 % Neutrophils # (Auto) 9.6 TH/MM3 Lymphocytes # (Auto) 1.0 TH/MM3 Monocytes # (Auto) 0.9 TH/MM3 Eosinophils # (Auto) 0.0 TH/MM3 Basophils # (Auto) 0.1 TH/MM3 CBC Comment DIFF FINAL Differential Comment Laboratory Tests Test 12/19/16 12/20/16 17:10 08:00 Sodium Level 136 MEQ/L 132 MEQ/L Potassium Level 3.3 MEQ/L 2.6 MEQ/L Chloride Level 98 MEQ/L 93 MEQ/L Carbon Dioxide Level 25.8 MEQ/L 24.9 MEQ/L Anion Gap 12 MEQ/L 14 MEQ/L Blood Urea Nitrogen 21 MG/DL 19 MG/DL Creatinine 1.23 MG/DL 1.45 MG/DL Estimat Glomerular Filtration 59 ML/MIN 49 ML/MIN Rate Random Glucose 96 MG/DL 106 MG/DL Calcium Level 9.8 MG/DL 9.7 MG/DL Microbiology Date/Time Procedure Status Source Growth 12/17/16 14:35 Aerobic Blood Culture - Preliminary Resulted Blood Peripheral Staphylococcus Epidermidis 12/17/16 14:35 Anaerobic Blood Culture - Preliminary Resulted Blood Peripheral NO GROWTH IN 2 DAYS 12/17/16 14:40 Aerobic Blood Culture - Preliminary Resulted Blood Peripheral NO GROWTH IN 2 DAYS 12/17/16 14:40 Anaerobic Blood Culture - Preliminary Resulted Blood Peripheral NO GROWTH IN 2 DAYS 12/18/16 20:30 Aerobic Blood Culture - Preliminary Resulted Blood Peripheral NO GROWTH IN 1 DAY 12/18/16 20:30 Anaerobic Blood Culture - Preliminary Resulted Blood Peripheral NO GROWTH IN 1 DAY 12/18/16 20:35 Aerobic Blood Culture - Preliminary Resulted Blood Peripheral NO GROWTH IN 1 DAY 12/18/16 20:35 Anaerobic Blood Culture - Preliminary Resulted Blood Peripheral NO GROWTH IN 1 DAY Physical Exam GENERAL: awake and alert, not in any distress SKIN: Cool and moist. No generalized rash or ecchymosis. HEENT: [place] conjunctivae, no petechia or hemorrhage. No scleral icterus. No injection or drainage. Moist oral mucosa. Throat without erythema, or exudate. NECK: Trachea midline. No JVD . Has an indurated area below L submandibular area, that is not tender. Supple, nontender, no meningeal signs. CARDIOVASCULAR: Regular rate and rhythm without gallops, or rubs. ?soft murmur at base of the heart RESPIRATORY: Clear to auscultation. Breath sounds equal bilaterally. No wheezes , rales, or rhonchi. GASTROINTESTINAL: Abdomen soft, non-tender, nondistended. No hepato-splenomegaly , or palpable masses. No guarding. No rebound. Bowel sounds are present and normoactive. MUSCULOSKELETAL: Extremities without clubbing, cyanosis, or edema. No calf tenderness. He has scars in both knees compatible with his surgical history. The left knee is larger compared to the right knee. Has no pain in movement of his knee joints or hip joints. NEUROLOGICAL: Non-focal PSYCH: Normal affect, calm and cooperative. BACK: spine tenderness in lumbar region LINE: PIV with no evidence of infection Assessment & Plan Remarks IMPRESSION L2-L3 discitis, osteomyelitis, S/P Rx with IV Rocephin - initial C/S neg, but G/S with rare GNR - worse clinically - repeat scan, findings ?same as previous MRI One (+) BC with Staph epi, ?real or contaminant RECOMMENDATION Follow C/S Echo For aspiration/biopsy of back Repeat aspirate of back, send for G/S C/S, fungal and AFB Monitor progress Prob start IV vanco after biopsy done I will check patient again on Friday Please call ID MD qualifications examiner if with any new ID issue or question Audrey Flores MD Dec 20, 2016 10:18
[2016-12-20] MEDS ORDERED: NIFEdipine 30 MG SUSTAINED RELEASE TAB PO SCH (11:15)
[2016-12-20] MEDS ORDERED: NIFEdipine 30 MG SUSTAINED RELEASE TAB PO ONE (12:00)
[2016-12-20] MEDS: POTASSIUM CHLORIDE 20 MEQ CONTROLLED RELEASE TAB PO SCH ×2 (12:31→19:55)
--- NOTE | 2016-12-20 12:34 | HHI.NSPN ---
(Mesfin Elaine) Note Status Status: Progress Note (Mesfin Elaine) Interval History Interval History 12/17: 61-year-old male who fell at his home in mid September with subsequent onset of progressive low back pain. He was admitted to [facility] towards the end of September and diagnosed with discitis-osteomyelitis and treated with 8 weeks of intravenous Rocephin which was completed approximately 10 days ago. He has continued to have progression of low back pain, and was seen by orthopedic surgery recently and sent for an MRI which was completed earlier today at [facility]. The study findings were reviewed by radiology and orthopedics, and the patient subsequently referred to the emergency room for admission and further evaluation. 12/18: Patient still with pain to the low back with radiation to the groins, numbness to groins persist. 12/19: Patient awake & alert. Still with low back pain and numbness to the groins. Fixated on not receiving his home medications. 12/20: Awake & alert. Pain still present to the low back with numbness still to the groins. Still some what slow in responding. at bedside and expresses concern that he wasn't treated properly for the infection at [facility]. (Mesfin Elaine) Labs, Micro, & Vital Signs Results Allergies Coded Allergies Type Severity Reaction Last Updated Verified Toradol Allergy Severe RASH 12/17/16 No 12/18////// 06: 18:00 06:00 18:00 06: 18:00 Intake Total 968 ml 920 ml 360 ml 1330 ml 240 ml Output Total 200 ml 1350 ml 1050 ml 200 ml 800 ml Balance 768 ml -430 ml -690 ml 1130 ml -560 ml Intake Oral 150 ml 920 ml 360 ml 240 ml IV Total 818 ml 0 ml 1330 ml Output Urine Total 200 ml 1350 ml 1050 ml 200 ml 800 ml # Bowel Movements 0 0 0 Laboratory Tests Test 12/17/16 12/17/16 12/17/16 12/18/16 14:35 14:40 21:43 00:10 Prothrombin Time 11.6 SEC Prothromb Time International 1.0 RATIO Ratio Activated Partial 27.3 SEC Thromboplast Time Sodium Level 134 MEQ/L Potassium Level 3.8 MEQ/L Chloride Level 95 MEQ/L Carbon Dioxide Level 24.6 MEQ/L Anion Gap 14 MEQ/L Blood Urea Nitrogen 40 MG/DL Creatinine 2.60 MG/DL Estimat Glomerular Filtration 25 ML/MIN Rate Random Glucose 114 MG/DL Calcium Level 10.1 MG/DL Total Bilirubin 0.6 MG/DL Aspartate Amino Transf 19 U/L (AST/SGOT) Alanine Aminotransferase 12 U/L (ALT/SGPT) Alkaline Phosphatase 102 U/L C-Reactive Protein 18.00 MG/DL Total Protein 8.4 GM/DL Albumin 3.1 GM/DL White Blood Count 14.9 TH/MM3 Red Blood Count 4.50 MIL/MM3 Hemoglobin 11.4 GM/DL Hematocrit 34.9 % Mean Corpuscular Volume 77.6 FL Mean Corpuscular Hemoglobin 25.4 PG Mean Corpuscular Hemoglobin 32.8 % Concent Red Cell Distribution Width 16.4 % Platelet Count 472 TH/MM3 Mean Platelet Volume 7.6 FL Neutrophils (%) (Auto) 81.6 % Lymphocytes (%) (Auto) 8.4 % Monocytes (%) (Auto) 9.2 % Eosinophils (%) (Auto) 0.2 % Basophils (%) (Auto) 0.6 % Neutrophils # (Auto) 12.2 TH/MM3 Lymphocytes # (Auto) 1.2 TH/MM3 Monocytes # (Auto) 1.4 TH/MM3 Eosinophils # (Auto) 0.0 TH/MM3 Basophils # (Auto) 0.1 TH/MM3 CBC Comment DIFF FINAL Differential Comment Erythrocyte Sedimentation Rate 75 mm/hr Lactic Acid Level 2.2 mmol/L 0.5 mmol/L Urine Color YELLOW Urine Turbidity HAZY Urine pH 5.5 Urine Specific [place] 1.023 Urine Protein 30 mg/dL Urine Glucose (UA) NEG mg/dL Urine Ketones NEG mg/dL Urine Occult Blood MOD Urine Nitrite NEG Urine Bilirubin NEG Urine Urobilinogen LESS THAN 2.0 MG/DL Urine Leukocyte Esterase NEG Urine RBC 1 /hpf Urine WBC 2 /hpf Urine Squamous Epithelial <1 /hpf Cells Urine Bacteria RARE /hpf Urine Mucus FEW /lpf Microscopic Urinalysis Comment CULT NOT INDICATED Urine Opiates Screen POS Urine Barbiturates Screen NEG Urine Amphetamines Screen NEG Urine Benzodiazepines Screen POS Urine Cocaine Screen NEG Urine Cannabinoids Screen NEG Test 12/18/16 12/19/16 12/20/16 07:18 17:10 08:00 White Blood Count 11.2 TH/MM3 11.6 TH/MM3 Red Blood Count 4.26 MIL/MM3 5.08 MIL/MM3 Hemoglobin 11.0 GM/DL 13.0 GM/DL Hematocrit 32.7 % 39.4 % Mean Corpuscular Volume 76.9 FL 77.7 FL Mean Corpuscular Hemoglobin 25.8 PG 25.6 PG Mean Corpuscular Hemoglobin 33.6 % 33.0 % Concent Red Cell Distribution Width 16.5 % 16.2 % Platelet Count 434 TH/MM3 534 TH/MM3 Mean Platelet Volume 7.7 FL 7.9 FL Neutrophils (%) (Auto) 76.8 % 83.0 % Lymphocytes (%) (Auto) 10.9 % 8.8 % Monocytes (%) (Auto) 11.1 % 7.6 % Eosinophils (%) (Auto) 0.8 % 0.1 % Basophils (%) (Auto) 0.4 % 0.5 % Neutrophils # (Auto) 8.6 TH/MM3 9.6 TH/MM3 Lymphocytes # (Auto) 1.2 TH/MM3 1.0 TH/MM3 Monocytes # (Auto) 1.2 TH/MM3 0.9 TH/MM3 Eosinophils # (Auto) 0.1 TH/MM3 0.0 TH/MM3 Basophils # (Auto) 0.0 TH/MM3 0.1 TH/MM3 CBC Comment DIFF FINAL DIFF FINAL Differential Comment Sodium Level 136 MEQ/L 136 MEQ/L 132 MEQ/L Potassium Level 3.2 MEQ/L 3.3 MEQ/L 2.6 MEQ/L Chloride Level 99 MEQ/L 98 MEQ/L 93 MEQ/L Carbon Dioxide Level 26.8 MEQ/L 25.8 MEQ/L 24.9 MEQ/L Anion Gap 10 MEQ/L 12 MEQ/L 14 MEQ/L Blood Urea Nitrogen 37 MG/DL 21 MG/DL 19 MG/DL Creatinine 1.99 MG/DL 1.23 MG/DL 1.45 MG/DL Estimat Glomerular Filtration 34 ML/MIN 59 ML/MIN 49 ML/MIN Rate Random Glucose 100 MG/DL 96 MG/DL 106 MG/DL Calcium Level 9.4 MG/DL 9.8 MG/DL 9.7 MG/DL Total Bilirubin 0.7 MG/DL Aspartate Amino Transf 31 U/L (AST/SGOT) Alanine Aminotransferase 12 U/L (ALT/SGPT) Alkaline Phosphatase 98 U/L Total Protein 7.8 GM/DL Albumin 2.8 GM/DL Prothrombin Time 11.4 SEC Prothromb Time International 1.0 RATIO Ratio Constitutional Vital Signs Date Time Temp Pulse Resp B/P Pulse Ox O2 Delivery O2 Flow Rate FiO2 12/20/16 12:00 98.3 95 18 195/105 98 12/20/16 09:36 180/104 12/20/16 08:00 98.0 93 18 158/102 97 12/20/16 08:00 Room Air 12/20/16 04:00 98.0 78 20 164/86 97 12/20/16 00:18 Room Air 12/20/16 00:00 98.6 75 18 158/86 95 12/19/16 20:00 98.5 88 20 158/98 92 12/20/16 07:00 Intake Total 1570 ml Output Total 1000 ml Balance 570 ml (Mesfin Elaine) Review of Systems/Exam ROS Constitutional: Denies any fever or sweats. Neuro: Numbness from lateral back around to groins bilaterally. Denies any headache or dizziness. Resp: Denies any shortness of breath or productive cough. Cardiac: Denies any chest pain, palpitations or irregular heart beat. GI: Denies any abdominal pain, nausea, vomiting or bowel incontinence. : Denies any bladder incontinence. Back: Still has pain across lower back. Extremities: Denies any weakness or pain to the arms or legs. Exam Constitutional: NAD, slow to respond to questions. HEENT: Normocephalic, atraumatic. PERRLA, EOM intact. Resp: CTAB w/o W/R/R, equal excursion, non-laboured, on RA. CV: S1S2 w/RRR w/o M/G/R, cap refill < 2 sec, radial & pedal pulses 2+ bilaterally, no pedal edema. GI: Abdomen soft, nontender, positive bowel sounds, no palpable masses or organomegaly. Extremities: Extremities normal, NTTP, no evident discolouration, deformity or clubbing. Back: TTP across lower back laterally. Neuro: AAOx3. Speech clear but with slow thought process. At times he fixates on an issue and will not appropriately answer the question. Follows commands. Motor function 5/5 all major muscle flexion & extension groups. Decreased sensation from lateral lower back around to groin bilaterally. Face symmetrical. (Mesfin Elaine) Medications Current Medications Current Medications Medications (Trade) Dose Ordered Sig/Gene Route Start Time Stop Time Status Last Admin (Xanax) 1 mg Q6H PRN PO 12/17/16 17:45 12/20/16 08:08 (Zoloft) 100 mg DAILY PO 12/18/16 09:00 12/20/16 08:08 (Oramorph Sr) 15 mg BID PO 12/18/16 09:00 12/19/16 20:58 Famotidine 20 mg 20 mg DAILY PO 12/18/16 09:00 12/20/16 08:08 (NS 1000 ml Inj) 1,000 ml @ 100 mls/hr Q10H IV 12/17/16 17:34 12/19/16 19:34 (NS Flush) 2 ml UNSCH PRN IV FLUSH 12/17/16 17:45 (NS Flush) 2 ml BID IV FLUSH 12/17/16 21:00 12/20/16 08:08 (Tylenol) 650 mg Q4H PRN PO 12/17/16 17:45 (Zofran Inj) 4 mg Q6H PRN IVP 12/17/16 17:45 (Colace) 100 mg Q12H PO 12/17/16 17:45 12/19/16 16:57 (Milk Of Magnesia Liq) 30 ml Q12H PRN PO 12/17/16 17:45 (Tylenol) 650 mg Q6H PRN PO 12/17/16 17:45 (Roxicodone) 10 mg Q4H PRN PO 12/17/16 17:45 12/20/16 10:16 (Roxicodone) 5 mg Q4H PRN PO 12/17/16 17:45 (Narcan Inj) 0.4 mg UNSCH PRN IV 12/17/16 17:45 (Catapres) 0.1 mg Q6H PRN PO 12/17/16 17:45 12/20/16 10:16 Doxazosin Mesylate 4 mg 4 mg HS PO 12/19/16 21:00 12/19/16 20:58 (KCl Inj/NS Inj) 115 ml @ 38.333 mls/ hr ONCE ONCE IV-CENTRAL 12/20/16 10:00 12/20/16 12:59 12/20/16 11:26 (KCl) 20 meq Q12HR PO 12/20/16 12:00 (Procardia Xl) 60 mg DAILY PO 12/21/16 09:00 (Mesfin Elaine) Medical Decision Making MDM Remarks Impression: L2-3 discitis-osteomyelitis with mostly moderate canal stenosis. The degree of stenosis does not appear to be sufficient to cause cauda equina syndrome or significant nerve compression. There is some enhancement of the bilateral L4 nerve root extending into the thecal sac with probable nerve inflammation. Staphylococcus epidermidis in 1 blood culture from 12/17, no growth from those on 12/18. Pain not well controlled. (Mesfin Elaine) Plan Plan Remarks ID to repeat aspiration today Obtain records from [facility] Continue to mobilize cautiously with physical therapy LSO brace (Mesfin Elaine) Plan Remarks I have personally seen and examined the patient on the date of this note. Pertinent documentation and study results have been reviewed by the undersigned. I have personally developed the treatment plan and performed medical decision making. Agree with findings, exam, and treatment plan as noted above. He is having some intermittent numbness and aching in his low back radiating into the bilateral hip and groin region. Sensorimotor function remains intact in the lower extremities on today's exam Remains awake and alert Discuss plan with patient Continue to monitor neurologic function closely Follow-up biopsy off antibiotics pending (Pravin Powell MD) Mesfin Elaine Dec 20, 2016 12:34 Pravin Powell MD Dec 20, 2016 19:50
--- NOTE | 2016-12-20 13:45 | HHI.PR ---
Subjective Remarks awake and alert, awake and alert x 3 but appears confused/ranting states burning pain thighs- not constant denies any incontinence on exam- tachycardic- irregular rhythm Objective Vitals Vital Signs Date Time Temp Pulse Resp B/P Pulse Ox O2 Delivery O2 Flow Rate FiO2 12/20/16 12:00 98.3 95 18 195/105 98 12/20/16 09:36 180/104 12/20/16 08:00 98.0 93 18 158/102 97 12/20/16 08:00 Room Air 12/20/16 04:00 98.0 78 20 164/86 97 12/20/16 00:18 Room Air 12/20/16 00:00 98.6 75 18 158/86 95 12/19/16 20:00 98.5 88 20 158/98 92 I/O 12/19/16 12/19/16 12/19/16 12/20/16 12/20/16 12/20/16 07:00 15:00 23:00 07:00 15:00 23:00 Intake Total 240 ml 1330 ml 240 ml 0 ml Output Total 550 ml 200 ml 375 ml 425 ml Balance -310 ml 1130 ml -135 ml -425 ml Intake Oral 240 ml 240 ml 0 ml IV Total 1330 ml Output Urine Total 550 ml 200 ml 375 ml 425 ml # Bowel Movements 0 0 Result Diagram: 12/20/16 0800 12/20/16 0800 Objective Remarks awake and alert, oriented x 3, speech clear but ranting anicteric no nuchal rigidity lungs clear irregularly irregular rhythm, tachycardic abdomen soft, good bowel sounds extremities no edema- motor 5/5, grossly no sensory deficits, ++ DTRs A/P Assessment and Plan 61-year-old male with past medical history of discitis/osteomyelitis, HTN, PTSD , hep C, GERD, OA, chronic pain who presented with worsening lower back pain today with some confusion, Encephalopathy- confusion- multifactorial-- wax and wane- today more confused likely from infection/sepsis/metabolic- KI check a head CT SIRS- History of L2-L3 disciitis/OM- with moderate canal stenosis Inability to ambulate declining from cane- walker and for the past 5 days unable to get up and ambulate- bed bound- No fecal or urinary incontinence -PT ff elevated ESR, CRP. blood culture- Epidermidies- likely contaminant ID recommendations appreciated- IR consulted for biopsy- today Dr. Powell neurosurgery ff HYpertensive urgency with confusion- elevated readings today check head CT CArdura at 4 mg hs continue on Clonidine prn IV Hydralazine prn DC Procardia- will start Cardizem drip due to acute a fib with RVR Acute atrial fibrillation in RVR correct electrolytes. check Mg start Cardizem drip- bolus protocol. check echo place on telemetry cardiology consult will need anticoagulation long-term if a fib persists- hold for now going for biopsy Severe Hypokalemia - replace IV and po. check Mg KCL 30 meq po bid Acute Kidney insufficiency- non oliguric- renal functions improving continue on IVF creatinine trending down Anxiety/depression/PTSD: Chronic. Continue home Xanax and sertraline. DVT prophylaxis: SCDs. [facility]ansfer to [facility] for close monitoring Analy Pink MD Dec 20, 2016 13:45
[2016-12-20] MEDS ORDERED: DILTIAZEM INJ 125 MG in SODIUM CHLORIDE 0.9% INJ 100 ML IV SCH (14:15)
[2016-12-20] MEDS ORDERED: DILTIAZEM HCL 25 MG/5 ML VIAL IVP ONE (14:15)
[2016-12-20] MEDS ORDERED: MAGNESIUM SULFATE 1 GM PREMIX 100 ML IV ONE (19:15)
[2016-12-20] MEDS: DILTIAZEM INJ 125 MG in SODIUM CHLORIDE 0.9% INJ 100 ML IV SCH (19:45)
[2016-12-20] MEDS: DIGOXIN 0.125 MG TAB PO SCH (19:46)
[2016-12-20] MEDS: METOPROLOL TARTRATE 25 MG TAB PO SCH (19:56)
[2016-12-20] MEDS: MORPHINE SULFATE 15 MG CONTROLLED RELEASE TAB PO SCH (20:16)
[2016-12-20] MEDS ORDERED: POTASSIUM CHLORIDE 20 MEQ CONTROLLED RELEASE TAB PO SCH (21:00)
[2016-12-21] VITALS (13 sets, daily range): BP systolic 102–154; BP diastolic 59–94; PULSE 71–122; RESP 20–30; TEMP 96.9–99.2; O2SAT 94–100
[2016-12-21] MEDS: ALPRAZolam 1 MG TAB PO PRN ×3 (02:24→20:30)
[2016-12-21] MEDS ORDERED: LORazepam 2 MG/ML VIAL IV PUSH ONE (02:45)
--- NOTE | 2016-12-21 04:59 | RADRPT ---
EXAM DATE/TIME: 12/21/2016 04:41 [place] COMPARISON: No previous studies available for comparison. INDICATIONS : Altered mental status. RADIATION DOSE: 55.33 CTDIvol (mGy) MEDICAL HISTORY : Non-responsive. SURGICAL HISTORY : Non-responsive. ENCOUNTER: Subsequent ACUITY: 1 day PAIN SCALE: 0/10 LOCATION: cranial TECHNIQUE: Multiple contiguous axial images were obtained of the head. Using automated exposure control and adj ustment of the mA and/or kV according to patient size, radiation dose was kept as low as reasonably a chievable to obtain optimal diagnostic quality images. FINDINGS: CEREBRUM: The ventricles are normal for age. No evidence of midline shift, mass lesion, hemorrhage or acute in farction. No extra-axial fluid collections are seen. POSTERIOR FOSSA: The cerebellum and brainstem are intact. The 4th ventricle is midline. The cerebellopontine angle i s unremarkable. EXTRACRANIAL: The visualized portion of the orbits is intact. SKULL: The calvaria is intact. No evidence of skull fracture. CONCLUSION: Negative noncontrast head CT. Jeronimo Ayers MD on December 21, 2016 at 4:56 Board Certified Radiologist. This report was verified electronically.
[2016-12-21 05:06] LABS: BICARBONATE 23.7 MEQ/L (21.0-32.0); MAGNESIUM 2.2 MG/DL (1.5-2.5); POTASSIUM 3.3 MEQ/L (3.5-5.1)
[2016-12-21] MEDS ORDERED: HALOPERIDOL LACTATE 5 MG/ML AMP IM ONE ×2 (06:15→22:00)
[2016-12-21] MEDS: SERTRALINE HCL 100 MG TAB PO SCH (08:58)
[2016-12-21] MEDS: METOPROLOL TARTRATE 25 MG TAB PO SCH ×2 (08:58→20:30)
[2016-12-21] MEDS: POTASSIUM CHLORIDE 20 MEQ CONTROLLED RELEASE TAB PO SCH ×2 (08:58→20:31)
[2016-12-21] MEDS: DIGOXIN 0.125 MG TAB PO SCH (08:58)
[2016-12-21] MEDS: MORPHINE SULFATE 15 MG CONTROLLED RELEASE TAB PO SCH ×2 (08:59→20:32)
[2016-12-21] MEDS: FAMOTIDINE 20 MG TAB PO SCH (08:59)
[2016-12-21] MEDS ORDERED: NIFEdipine 30 MG SUSTAINED RELEASE TAB PO SCH (09:00)
[2016-12-21] MEDS: SODIUM CHLORIDE 0.9% FLUSH 10 ML FLUSH IV FLUSH SCH ×2 (09:00→20:33)
[2016-12-21] MEDS ORDERED: HALOPERIDOL 2 MG TAB PO ONE (09:15)
[2016-12-21] MEDS: SODIUM CHLOR 0.9% 1000 ML INJ 1,000 ML IV SCH (09:21)
[2016-12-21] MEDS ORDERED: LORazepam 1 MG TAB PO PRN (10:15)
--- NOTE | 2016-12-21 10:15 | HHI.FPPN ---
Subjective Remarks Overnight, patient reportedly became confused w/ agitation. He was given 1mg of Haldol, Ativan, and placed in soft restraints. This morning, he remains confused with intermittent severe agitation including pulling at lines. He is unable to provide a history but believes I am a family member despite redirection, and endorses that he is seeing airplanes. Discussion with his significant other reveals that he takes up to 2 mg of ativan at home. She states this is for anxiety and sometimes for sleep. She states he has never by altered or confused in this manner previously and states he is normally completely clear at his baseline. He has not had fevers. He is currently not on antibiotics. Back biopsy is scheduled today. Objective Vitals Vital Signs Date Time Temp Pulse Resp B/P Pulse Ox O2 Delivery O2 Flow Rate FiO2 12/21/16 06:00 115 12/21/16 04:00 98.9 116 25 114/80 12/21/16 04:00 116 12/21/16 02:00 122 12/21/16 00:00 96.9 102 30 102/59 94 12/21/16 00:00 111 12/20/16 22:00 102 12/20/16 21:16 20 12/20/16 20:00 93 12/20/16 20:00 97.8 128 25 132/77 94 12/20/16 19:00 95 Room Air 12/20/16 18:00 138 12/20/16 16:30 150 12/20/16 16:30 98.3 150 22 137/80 97 12/20/16 16:00 99.3 116 18 111/77 96 12/20/16 15:10 98.6 140 20 112/62 97 12/20/16 14:55 135 20 110/57 97 12/20/16 14:40 98.6 150 120/68 12/20/16 14:40 97.7 150 20 120/74 12/20/16 12:00 98.3 95 18 195/105 98 12/20/16 11:16 20 I/O 12/20/16 12/20/16 12/20/16 12/21/16 12/21/16 12/21/16 07:00 15:00 23:00 07:00 15:00 23:00 Intake Total 0 ml 0 ml 349 ml 120 ml Output Total 425 ml 400 ml Balance -425 ml -400 ml 349 ml 120 ml Intake Oral 0 ml 0 ml 240 ml IV Total 109 ml 120 ml Output Urine Total 425 ml 400 ml # Voids 0 0 # Bowel Movements 0 0 Result Diagram: 12/20/16 0800 12/21/16 0356 Objective Remarks GEN: Well-developed, well-nourished patient. Laying flat in bed. CV: Regular rate and rhythm without obvious murmurs LUNGS: Clear to auscultation bilaterally. Normal respiratory effort. No wheezes , rales, rhonchi. GI: Soft, nontender, nondistended. No palpable masses. Bowel sounds WNL. EXT: No edema. NEURO/PSYCH: Makes good eye contact. Thinks I am a family relative. Appears confused. Alert, oriented to self. A/P Assessment and Plan 61-year-old male with past medical history of discitis/osteomyelitis, HTN, PTSD , hep C, GERD, OA, chronic pain who presented with worsening lower back pain found to have likely chronic discitis. #) Encephalopathy/delerium. Likely multifactorial-- now slightly improved with Ativan. Head CT and metabolic profile yesterday reassuring. This does not appear to be patient's baseline. WBC stable at 11.6. - DDX includes infection vs acute intracranial process vs benzo w/d vs metabolic disorder - MRI pending - Back biopsy pending, will then start ABX per ID - If patient develops fever, recommend STAT IR biopsy so that antibiotics may be resumed - ID and neurosurgery following, appreciate rec's #) SIRS- History of L2-L3 discitis/OM- with moderate canal stenosis. Inability to ambulate declining from cane- walker and for the past 5 days unable to get up and ambulate. No fecal or urinary incontinence -PT ff elevated ESR, CRP. blood culture- Epidermidies- likely contaminant ID recommendations appreciated- IR consulted for biopsy- today if possible Dr. Powell neurosurgery ff #) HTN: currently well controlled CArdura at 4 mg hs continue on Clonidine prn IV Hydralazine prn #) Acute A.fib w/ RVR: Resolved. Hold Cardizem drip, may discontinue if no recurrence. If recurrence, transition to PO cardizem Continue Tele Cardiology was consulted #) Hypokalemia: Improving. 3.3 today. Mg 2.2 - Continue KCL 20 meq po bid - Repeat BMP in AM #) Acute Kidney insufficiency- non oliguric- renal functions improving continue on IVF creatinine trending down #) Anxiety/depression/PTSD: Chronic. Continue home Xanax and sertraline. Discharge Planning Pending clinical improvement, biopsy, and ABX, likely will require prolonged course of antibiotics Problem List: (1) Altered awareness, transient Status: Acute (2) Discitis of lumbar region Status: Acute (3) Osteomyelitis of lumbar spine Status: Acute (4) Anxiety Status: Chronic (5) Hypertension Status: Chronic Zander Pike MD R3 Dec 21, 2016 10:15
[2016-12-21] MEDS ORDERED: LORazepam 2 MG/ML VIAL IV PUSH PRN (11:00)
--- NOTE | 2016-12-21 12:13 | HHI.NSPN ---
Note Status Status: Progress Note Interval History Interval History 12/17: 61-year-old male who fell at his home in mid September with subsequent onset of progressive low back pain. He was admitted to [facility] towards the end of September and diagnosed with discitis-osteomyelitis and treated with 8 weeks of intravenous Rocephin which was completed approximately 10 days ago. He has continued to have progression of low back pain, and was seen by orthopedic surgery recently and sent for an MRI which was completed earlier today at [facility]. The study findings were reviewed by radiology and orthopedics, and the patient subsequently referred to the emergency room for admission and further evaluation. 12/18: Patient still with pain to the low back with radiation to the groins, numbness to groins persist. 12/19: Patient awake & alert. Still with low back pain and numbness to the groins. Fixated on not receiving his home medications. 12/20: Awake & alert. Pain still present to the low back with numbness still to the groins. Still some what slow in responding. at bedside and expresses concern that he wasn't treated properly for the infection at [facility]. 12/21: Neurologically stable. Remains with pain along bilateral groins. Waiting for CT-guided biopsy to guide antibiotic treatment. Labs, Micro, & Vital Signs Results Date Time Temp Pulse Resp B/P Pulse Ox O2 Delivery O2 Flow Rate FiO2 12/21/16 06:00 115 12/21/16 04:00 98.9 116 25 114/80 12/21/16 04:00 116 12/21/16 02:00 122 12/21/16 00:00 96.9 102 30 102/59 94 12/21/16 00:00 111 12/20/16 22:00 102 12/20/16 21:16 20 12/20/16 20:00 93 12/20/16 20:00 97.8 128 25 132/77 94 12/20/16 19:00 95 Room Air 12/20/16 18:00 138 12/20/16 16:30 150 12/20/16 16:30 98.3 150 22 137/80 97 12/20/16 16:00 99.3 116 18 111/77 96 12/20/16 15:10 98.6 140 20 112/62 97 12/20/16 14:55 135 20 110/57 97 12/20/16 14:40 98.6 150 120/68 12/20/16 14:40 97.7 150 20 120/74 12/21/16 07:00 Intake Total 469 ml Output Total 400 ml Balance 69 ml Constitutional Vital Signs Date Time Temp Pulse Resp B/P Pulse Ox O2 Delivery O2 Flow Rate FiO2 12/21/16 06:00 115 12/21/16 04:00 98.9 116 25 114/80 12/21/16 04:00 116 12/21/16 02:00 122 12/21/16 00:00 96.9 102 30 102/59 94 12/21/16 00:00 111 12/20/16 22:00 102 12/20/16 21:16 20 12/20/16 20:00 93 12/20/16 20:00 97.8 128 25 132/77 94 12/20/16 19:00 95 Room Air 12/20/16 18:00 138 12/20/16 16:30 150 12/20/16 16:30 98.3 150 22 137/80 97 12/20/16 16:00 99.3 116 18 111/77 96 12/20/16 15:10 98.6 140 20 112/62 97 12/20/16 14:55 135 20 110/57 97 12/20/16 14:40 98.6 150 120/68 12/20/16 14:40 97.7 150 20 120/74 12/21/16 07:00 Intake Total 469 ml Output Total 400 ml Balance 69 ml Review of Systems/Exam Exam Constitutional: NAD, slow to respond to questions. HEENT: Normocephalic, atraumatic. PERRLA, EOM intact. Resp: CTAB w/o W/R/R, equal excursion, non-laboured, on RA. CV: S1S2 w/RRR w/o M/G/R, cap refill < 2 sec, radial & pedal pulses 2+ bilaterally, no pedal edema. GI: Abdomen soft, nontender, positive bowel sounds, no palpable masses or organomegaly. Extremities: Extremities normal, NTTP, no evident discolouration, deformity or clubbing. Back: TTP across lower back laterally. Neuro: AAOx3. Speech clear but with slow thought process. At times he fixates on an issue and will not appropriately answer the question. Follows commands. Motor function 5/5 all major muscle flexion & extension groups. Decreased sensation from lateral lower back around to groin bilaterally. Face symmetrical. Medications Current Medications Active Medications Digoxin 0.125 mg 0.125 mg DAILY PO Last administered on 12/21/16 08:58; Admin Dose 0.125 MG; Start 12/20/16 at 19:00 Diltiazem HCl 20 mg 20 mg ONCE ONCE IVP Last administered on 12/20/16 14:39; Admin Dose 20 MG; Start 12/20/16 at 14:15; Stop 12/20/16 at 14:19; Status DC Diltiazem HCl/ Sodium Chloride (Cardizem Inj/NS Inj) 125 ml @ 0 mls/hr TITRATE IV Last administered on 12/20/16 14:48; Admin Dose 0 MLS/HR; Start 12/20/16 at 14:15; Stop 12/20/16 at 18:40; Status DC Diltiazem HCl/ Sodium Chloride (Cardizem Inj/NS Inj) 125 ml @ 0 mls/hr TITRATE IV Last administered on 12/20/16 19:45; Admin Dose 0 MLS/HR; Start 12/20/16 at 18:45 Haloperidol (Haldol) 2 mg ONCE ONCE PO Last administered on 12/21/16 10:13; Admin Dose 2 MG; Start 12/21/16 at 09:15; Stop 12/21/16 at 09:19; Status DC Haloperidol Lactate (Haldol Inj) 1 mg ONCE ONCE IM Last administered on 06:18; Admin Dose 1 MG; Start 12/21/16 at 06:15; Stop 12/21/16 at 06:16; Status DC Hydralazine HCl 10 mg 10 mg Q6HR PRN IV PUSH; Start 12/20/16 at 14:45 Lorazepam (Ativan Inj) 1 mg ONCE ONCE IV PUSH Last administered on 12/21/16 04 :27; Admin Dose 1 MG; Start 12/21/16 at 02:45; Stop 12/21/16 at 02:46; Status DC Lorazepam (Ativan Inj) 1 mg ONCE PRN IV PUSH; Start 12/21/16 at 11:00; Stop at 23:59 Lorazepam (Ativan) 1 mg Q6HR PRN PO; Start 12/21/16 at 10:15 Magnesium Sulfate/ Dextrose (Magnesium Sulfate 1 Gm Premix) 100 ml @ 100 mls/ hr ONCE ONCE IV Last administered on 12/20/16 19:55; Admin Dose 100 MLS/HR; Start 12/20/16 at 19:15; Stop 12/20/16 at 20:14; Status DC Metoprolol Tartrate (Lopressor) 25 mg BID PO Last administered on 12/21/16 08: 58; Admin Dose 25 MG; Start 12/20/16 at 21:00 Nifedipine (Procardia Xl) 60 mg DAILY PO; Start 12/21/16 at 09:00; Status Cancel Potassium Chloride (KCl) 20 meq Q12HR PO; Start 12/20/16 at 21:00; Stop at 21:00; Status DC Medical Decision Making MDM Remarks L2-3 discitis-osteomyelitis with mostly moderate canal stenosis. The degree of stenosis does not appear to be sufficient to cause cauda equina syndrome or significant nerve compression. There is some enhancement of the bilateral L4 nerve root extending into the thecal sac with probable nerve inflammation. Staphylococcus epidermidis in 1 blood culture from 12/17, no growth from those on 12/18. Pain not well controlled. Plan Plan Remarks ID to repeat aspiration today Obtain records from [facility] Continue to mobilize cautiously with physical therapy Follow-up biopsy off antibiotics pending LSO Francisco Asif MD Dec 21, 2016 12:13
[2016-12-21] MEDS: DILTIAZEM INJ 125 MG in SODIUM CHLORIDE 0.9% INJ 100 ML IV SCH ×2 (13:35→16:35)
--- NOTE | 2016-12-21 17:54 | PD.CARD.PN ---
Subjective Subjective Remarks Confused, denies CP or SOB Objective Medications Current Medications Medications (Trade) Dose Ordered Sig/Gene Route Start Time Stop Time Status Last Admin (Xanax) 1 mg Q6H PRN PO 12/17/16 17:45 12/21/16 09:08 (Zoloft) 100 mg DAILY PO 12/18/16 09:00 12/21/16 08:58 (Oramorph Sr) 15 mg BID PO 12/18/16 09:00 12/21/16 08:59 Famotidine 20 mg 20 mg DAILY PO 12/18/16 09:00 12/21/16 08:59 (NS 1000 ml Inj) 1,000 ml @ 42 mls/hr [id number] IV 12/17/16 17:34 12/21/16 09:21 (NS Flush) 2 ml UNSCH PRN IV FLUSH 12/17/16 17:45 (NS Flush) 2 ml BID IV FLUSH 12/17/16 21:00 12/21/16 09:00 (Tylenol) 650 mg Q4H PRN PO 12/17/16 17:45 (Zofran Inj) 4 mg Q6H PRN IVP 12/17/16 17:45 (Colace) 100 mg Q12H PO 12/17/16 17:45 12/19/16 16:57 (Milk Of Magnesia Liq) 30 ml Q12H PRN PO 12/17/16 17:45 (Tylenol) 650 mg Q6H PRN PO 12/17/16 17:45 (Roxicodone) 10 mg Q4H PRN PO 12/17/16 17:45 12/20/16 10:16 (Roxicodone) 5 mg Q4H PRN PO 12/17/16 17:45 (Narcan Inj) 0.4 mg UNSCH PRN IV 12/17/16 17:45 (Catapres) 0.1 mg Q6H PRN PO 12/17/16 17:45 12/20/16 10:16 (KCl) 20 meq Q12HR PO 12/20/16 12:00 12/21/16 08:58 Hydralazine HCl 10 mg 10 mg Q6HR PRN IV PUSH 12/20/16 14:45 (Cardizem Inj/NS Inj) 125 ml @ 0 mls/hr TITRATE IV 12/20/16 18:45 12/21/16 16:35 (Lopressor) 25 mg BID PO 12/20/16 21:00 12/21/16 08:58 (Lanoxin) 0.125 mg DAILY PO 12/20/16 19:00 12/21/16 08:58 (Ativan Inj) 1 mg ONCE PRN IV PUSH 12/21/16 11:00 12/21/16 23:59 Vital Signs / I&O Vital Signs Date Time Temp Pulse Resp B/P Pulse Ox O2 Delivery O2 Flow Rate FiO2 12/21/16 16:00 90 12/21/16 16:00 99.2 100 20 133/94 12/21/16 14:00 78 12/21/16 13:00 79 12/21/16 12:00 99.0 79 22 139/65 97 12/21/16 10:00 71 12/21/16 08:00 99.2 81 22 109/65 100 12/21/16 08:00 81 12/21/16 07:00 97 Room Air 12/21/16 06:00 115 12/21/16 04:00 98.9 116 25 114/80 12/21/16 04:00 116 12/21/16 02:00 122 12/21/16 00:00 96.9 102 30 102/59 94 12/21/16 00:00 111 12/20/16 22:00 102 12/20/16 21:16 20 12/20/16 20:00 93 12/20/16 20:00 97.8 128 25 132/77 94 12/20/16 19:00 95 Room Air 12/20/16 18:00 138 I/O 12/20/16 12/20/16 12/20/16 12/21/16 12/21/16 12/21/16 07:00 15:00 23:00 07:00 15:00 23:00 Intake Total 0 ml 0 ml 349 ml 120 ml 502 ml Output Total 425 ml 400 ml 300 ml Balance -425 ml -400 ml 349 ml 120 ml 202 ml Intake Oral 0 ml 0 ml 240 ml 240 ml IV Total 109 ml 120 ml 262 ml Output Urine Total 425 ml 400 ml 300 ml # Voids 0 0 # Bowel Movements 0 0 0 Physical Exam GENERAL: Confused, in soft restraints SKIN: Warm and dry. HEAD: Normocephalic. EYES: No scleral icterus. No injection or drainage. NECK: Supple, trachea midline. No JVD or lymphadenopathy. CARDIOVASCULAR: Regular rate and rhythm without murmurs, gallops, or rubs. RESPIRATORY: Breath sounds equal bilaterally. No accessory muscle use. GASTROINTESTINAL: Abdomen soft, non-tender, nondistended. MUSCULOSKELETAL: No cyanosis, or edema. Laboratory Laboratory Tests Test 12/20/16 12/21/16 19:30 03:56 Potassium Level 3.4 MEQ/L 3.3 MEQ/L Sodium Level 135 MEQ/L Chloride Level 99 MEQ/L Carbon Dioxide Level 23.7 MEQ/L Anion Gap 12 MEQ/L Blood Urea Nitrogen 24 MG/DL Creatinine 1.43 MG/DL Estimat Glomerular Filtration 50 ML/MIN Rate Random Glucose 107 MG/DL Calcium Level 9.7 MG/DL Magnesium Level 2.2 MG/DL Imaging Last Impressions Head CT 12/20/16 0000 Signed Impressions: Service Date/Time: Wednesday, December 21, 2016 04:41 - CONCLUSION: Negative noncontrast head CT. Jeronimo Ayers MD Assessment and Plan Problem List: (1) Paroxysmal atrial fibrillation (2) Encephalopathy (3) Discitis of lumbar region (4) SIRS (systemic inflammatory response syndrome) (5) Osteomyelitis of lumbar spine (6) Hypertension Assessment and Plan Stays in SR. Change diltiazem to PO. Continue antihypertensive tx. Eval for discitis/osteomyelitis in progress, bx planned for Fri. Debra Ramon MD Dec 21, 2016 17:54
[2016-12-21] MEDS ORDERED: DILTIAZEM HCL 60 MG TAB PO SCH (18:00)
[2016-12-21] MEDS: DILTIAZEM HCL 30 MG TAB PO SCH ×2 (18:39→23:10)
[2016-12-21] MEDS: DOCUSATE SODIUM 100 MG CAP PO SCH (18:39)
[2016-12-21 18:49] LABS: AUTOMATED NEUTROPHIL # 11.7 TH/MM3 (1.8-7.7); BASOPHIL # 0.1 TH/MM3 (0-0.2); BASOPHIL % 0.8 % (0.0-2.0); EOSINOPHIL % 0.3 % (0.0-4.0); HEMATOCRIT 38.1 % (39.0-51.0); HEMO FLAGS DIFF FINAL; LYMPH % 11.5 % (9.0-44.0); LYMPHOCYTE # 1.8 TH/MM3 (1.0-4.8); MEAN CELL VOLUME 77.7 FL (80.0-100.0); MEAN CORPUSCULAR HEMOGLOBIN 25.4 PG (27.0-34.0); MEAN CORPUSCULAR HGB CONC 32.7 % (32.0-36.0); MONO % 11.5 % (0.0-8.0); NEUT % 75.9 % (16.0-70.0); PLATELET COUNT 515 TH/MM3 (150-450); RED BLOOD COUNT 4.91 MIL/MM3 (4.50-5.90); RED CELL DISTRIBUTION WIDTH 16.2 % (11.6-17.2); WHITE BLOOD COUNT 15.4 TH/MM3 (4.0-11.0)
[2016-12-21 19:15] LABS: BICARBONATE 25.3 MEQ/L (21.0-32.0); POTASSIUM 3.3 MEQ/L (3.5-5.1)
[2016-12-21 19:19] LABS: INDIRECT BILIRUBIN 0.3 MG/DL (0.0-0.8); TOTAL BILIRUBIN ADULT 0.5 MG/DL (0.2-1.0)
--- NOTE | 2016-12-21 19:26 | EKG ---
Date Performed: 12/20/2016 Time Performed: 14:51:48 PTAGE: 61 years EKG: ATRIAL FIBRILLATION WITH RAPID VENTRICULAR RESPONSE MARKED LEFT AXIS DEVIATION ABNORMAL ECG NO PREVIOUS TRACING DOCTOR: Debra Ramon Interpretating Date/Time 12/21/2016 19:24:33
[2016-12-22] VITALS (14 sets, daily range): BP systolic 88–182; BP diastolic 60–114; PULSE 63–112; RESP 18–21; TEMP 97.5–98.7; O2SAT 96
[2016-12-22 04:35] LABS: BASOPHIL # 0.2 TH/MM3 (0-0.2); BASOPHIL % 1.2 % (0.0-2.0); EOSINOPHIL % 0.2 % (0.0-4.0); HEMO FLAGS DIFF FINAL; LYMPH % 10.4 % (9.0-44.0); LYMPHOCYTE # 1.5 TH/MM3 (1.0-4.8); MEAN CELL VOLUME 77.8 FL (80.0-100.0); MEAN CORPUSCULAR HEMOGLOBIN 25.4 PG (27.0-34.0); MEAN CORPUSCULAR HGB CONC 32.6 % (32.0-36.0); MONO % 11.2 % (0.0-8.0); PLATELET COUNT 507 TH/MM3 (150-450); RED BLOOD COUNT 5.01 MIL/MM3 (4.50-5.90); RED CELL DISTRIBUTION WIDTH 16.6 % (11.6-17.2); WHITE BLOOD COUNT 14.3 TH/MM3 (4.0-11.0)
[2016-12-22 04:48] LABS: ANION GAP 9 MEQ/L (5-15); AST (GOT) 25 U/L (15-37); BLOOD UREA NITROGEN 28 MG/DL (7-18); CHLORIDE 103 MEQ/L (98-107); GLOMERULAR FILTRATION RATE 50 ML/MIN (>89); POTASSIUM 3.6 MEQ/L (3.5-5.1); SODIUM (NA) 137 MEQ/L (136-145)
[2016-12-22 04:50] LABS: ALKALINE PHOSPHATASE 96 U/L (45-117); ALT (GPT) 13 U/L (12-78); TOTAL BILIRUBIN ADULT 0.5 MG/DL (0.2-1.0)
[2016-12-22] MEDS: DILTIAZEM HCL 30 MG TAB PO SCH ×3 (06:21→17:58)
[2016-12-22] MEDS: DOCUSATE SODIUM 100 MG CAP PO SCH ×3 (06:21→17:59)
[2016-12-22] MEDS: POTASSIUM CHLORIDE 20 MEQ CONTROLLED RELEASE TAB PO SCH ×2 (08:38→20:11)
[2016-12-22] MEDS: FAMOTIDINE 20 MG TAB PO SCH (08:39)
[2016-12-22] MEDS: METOPROLOL TARTRATE 25 MG TAB PO SCH (08:39)
[2016-12-22] MEDS: DIGOXIN 0.125 MG TAB PO SCH (08:39)
[2016-12-22] MEDS: SODIUM CHLORIDE 0.9% FLUSH 10 ML FLUSH IV FLUSH SCH ×2 (08:39→20:12)
[2016-12-22] MEDS: MORPHINE SULFATE 15 MG CONTROLLED RELEASE TAB PO SCH ×2 (08:39→20:12)
[2016-12-22] MEDS: SERTRALINE HCL 100 MG TAB PO SCH (08:39)
[2016-12-22] MEDS: cloNIDine HCL 0.1 MG TAB PO PRN ×2 (09:52→20:12)
[2016-12-22] MEDS: hydrALAZINE HCL 20 MG/ML VIAL IV PUSH PRN ×2 (11:23→18:31)
[2016-12-22] MEDS: ALPRAZolam 1 MG TAB PO PRN ×2 (13:38→20:11)
--- NOTE | 2016-12-22 14:33 | HHI.NSPN ---
Note Status Status: Progress Note Interval History Interval History 12/17: 61-year-old male who fell at his home in mid September with subsequent onset of progressive low back pain. He was admitted to [facility] towards the end of September and diagnosed with discitis-osteomyelitis and treated with 8 weeks of intravenous Rocephin which was completed approximately 10 days ago. He has continued to have progression of low back pain, and was seen by orthopedic surgery recently and sent for an MRI which was completed earlier today at [facility]. The study findings were reviewed by radiology and orthopedics, and the patient subsequently referred to the emergency room for admission and further evaluation. 12/18: Patient still with pain to the low back with radiation to the groins, numbness to groins persist. 12/19: Patient awake & alert. Still with low back pain and numbness to the groins. Fixated on not receiving his home medications. 12/20: Awake & alert. Pain still present to the low back with numbness still to the groins. Still some what slow in responding. at bedside and expresses concern that he wasn't treated properly for the infection at [facility]. 12/21: Neurologically stable. Remains with pain along bilateral groins. Waiting for CT-guided biopsy to guide antibiotic treatment. 12/22: Neurologically stable although continues with confusion. Head CT was done on unremarkable. Waiting for CT-guided biopsy to guide antibiotic treatment. Labs, Micro, & Vital Signs Results Date Time Temp Pulse Resp B/P Pulse Ox O2 Delivery O2 Flow Rate FiO2 12/22/16 06:36 97.5 95 21 160/80 12/22/16 06:00 95 12/22/16 04:15 25 12/22/16 04:00 95 12/22/16 02:00 95 12/22/16 00:00 95 12/22/16 00:00 97.8 97 20 88/60 12/21/16 22:00 95 12/21/16 21:32 24 12/21/16 20:00 95 12/21/16 20:00 97.5 97 20 154/60 12/21/16 19:00 98 Room Air 12/21/16 18:00 95 12/21/16 16:00 90 12/21/16 16:00 99.2 100 20 133/94 12/22/16 07:00 Intake Total 1402 ml Output Total 300 ml Balance 1102 ml Constitutional Vital Signs Date Time Temp Pulse Resp B/P Pulse Ox O2 Delivery O2 Flow Rate FiO2 12/22/16 06:36 97.5 95 21 160/80 12/22/16 06:00 95 12/22/16 04:15 25 12/22/16 04:00 95 12/22/16 02:00 95 12/22/16 00:00 95 12/22/16 00:00 97.8 97 20 88/60 12/21/16 22:00 95 12/21/16 21:32 24 12/21/16 20:00 95 12/21/16 20:00 97.5 97 20 154/60 12/21/16 19:00 98 Room Air 12/21/16 18:00 95 12/21/16 16:00 90 12/21/16 16:00 99.2 100 20 133/94 12/22/16 07:00 Intake Total 1402 ml Output Total 300 ml Balance 1102 ml Review of Systems/Exam Exam Constitutional: NAD, slow to respond to questions. HEENT: Normocephalic, atraumatic. PERRLA, EOM intact. Resp: CTAB w/o W/R/R, equal excursion, non-laboured, on RA. CV: S1S2 w/RRR w/o M/G/R, cap refill < 2 sec, radial & pedal pulses 2+ bilaterally, no pedal edema. GI: Abdomen soft, nontender, positive bowel sounds, no palpable masses or organomegaly. Extremities: Extremities normal, NTTP, no evident discolouration, deformity or clubbing. Back: TTP across lower back laterally. Neuro: AAOx3. Speech clear but with slow thought process. At times he fixates on an issue and will not appropriately answer the question. Follows commands. Motor function 5/5 all major muscle flexion & extension groups. Decreased sensation from lateral lower back around to groin bilaterally. Face symmetrical. Medications Current Medications Current Medications Vancomycin HCl 1000 mg/Sodium Chloride 250 ml @ 250 mls/hr ONCE ONCE IV ; Start 12/17/16 at 14:30; Stop 12/17/16 at 14:42; Status DC Sodium Chloride (NS 1000 ml Inj) 1,000 ml @ 1,000 mls/hr Q1H IV Last administered on 12/17/16 14:42; Admin Dose 1,000 MLS/HR; Start 12/17/16 at 14: 26; Stop 12/17/16 at 15:25; Status DC Hydromorphone HCl 1 mg 1 mg ONCE ONCE IV PUSH Last administered on 12/17/16 14:52; Admin Dose 1 MG; Start 12/17/16 at 14:45; Stop 12/17/16 at 14:46; Status DC Sodium Chloride 1,000 ml @ 999 mls/hr BOLUS ONCE IV Last administered on 12/17 18:26; Admin Dose 999 MLS/HR; Start 12/17/16 at 16:30; Stop 12/17/16 at 17 :30; Status DC Piperacillin Sod/ Tazobactam Sod 100 ml @ 200 mls/hr ONCE STAT IV Last administered on 12/17/16 18:26; Admin Dose 200 MLS/HR; Start 12/17/16 at 16:20 ; Stop 12/17/16 at 16:49; Status DC Vancomycin HCl/ Sodium Chloride (Vancomycin Inj/ NS 250 ml Inj) 250 ml @ 250 mls/hr ONCE STAT IV Last administered on 12/17/16 18:58; Admin Dose 250 MLS/ HR; Start 12/17/16 at 16:20; Stop 12/17/16 at 17:19; Status DC Alprazolam (Xanax) 1 mg Q6H PRN PO ANXIETY Last administered on 12/22/16 13:38 ; Admin Dose 1 MG; Start 12/17/16 at 17:45 Sertraline HCl (Zoloft) 100 mg DAILY PO Last administered on 12/22/16 08:39; Admin Dose 100 MG; Start 12/18/16 at 09:00 Morphine Sulfate (Oramorph Sr) 15 mg BID PO Last administered on 12/22/16 08: 39; Admin Dose 15 MG; Start 12/18/16 at 09:00 Famotidine 20 mg 20 mg DAILY PO Reduce Stomach Acid Last administered on 08:39; Admin Dose 20 MG; Start 12/18/16 at 09:00 Sodium Chloride (NS 1000 ml Inj) 1,000 ml @ 42 mls/hr [id number] IV Last administered on 12/21/16 09:21; Admin Dose 42 MLS/HR; Start 12/17/16 at 17:34 Sodium Chloride (NS Flush) 2 ml UNSCH PRN IV FLUSH FLUSH AFTER USING IV ACCESS ; Start 12/17/16 at 17:45 Sodium Chloride (NS Flush) 2 ml BID IV FLUSH Last administered on 12/22/16 08: 39; Admin Dose 2 ML; Start 12/17/16 at 21:00 Acetaminophen (Tylenol) 650 mg Q4H PRN PO TEMP > 100.4 Last administered on 08:39; Admin Dose 650 MG; Start 12/17/16 at 17:45 Ondansetron HCl (Zofran Inj) 4 mg Q6H PRN IVP NAUSEA OR VOMITING; Start at 17:45 Docusate Sodium (Colace) 100 mg Q12H PO Last administered on 12/22/16 06:26; Admin Dose 100 MG; Start 12/17/16 at 17:45 Magnesium Hydroxide (Milk Of Magnesia Liq) 30 ml Q12H PRN PO CONSTIPATION; Start 12/17/16 at 17:45 Acetaminophen (Tylenol) 650 mg Q6H PRN PO PAIN SCALE 1 TO 2; Start 12/17/16 at 17:45 Oxycodone HCl (Roxicodone) 10 mg Q4H PRN PO PAIN SCALE 6 TO 10 Last administered on 12/22/16 13:38; Admin Dose 10 MG; Start 12/17/16 at 17:45 Oxycodone HCl (Roxicodone) 5 mg Q4H PRN PO PAIN SCALE 3 TO 5 Last administered on 12/22/16 03:17; Admin Dose 5 MG; Start 12/17/16 at 17:45 Naloxone HCl (Narcan Inj) 0.4 mg UNSCH PRN IV SEE LABEL COMMENTS; Start at 17:45 Clonidine 0.1 mg 0.1 mg Q6H PRN PO SBP>160, DBP>90 Last administered on 09:52; Admin Dose 0.1 MG; Start 12/17/16 at 17:45 Pharmacy Profile Note 0 ml @ 0 mls/hr UNSCH OTHER ; Start 12/17/16 at 18:00; Stop 12/18/16 at 09:02; Status DC Vancomycin HCl/ Sodium Chloride (Vancomycin Inj/ NS 500 ml Inj) 515 ml @ 257.5 mls/ hr Q24H IV ; Start 12/18/16 at 19:00; Stop 12/18/16 at 19:00; Status DC Nifedipine (Procardia Xl) 30 mg DAILY PO Last administered on 12/20/16 08:08; Admin Dose 30 MG; Start 12/19/16 at 16:15; Stop 12/20/16 at 09:24; Status DC Doxazosin Mesylate 4 mg 4 mg HS PO Last administered on 12/19/16 20:58; Admin Dose 4 MG; Start 12/19/16 at 21:00; Stop 12/20/16 at 18:52; Status DC Potassium Chloride/Sodium Chloride (KCl Inj/NS Inj) 115 ml @ 38.333 mls/ hr ONCE ONCE IV-CENTRAL Last administered on 12/20/16 11:26; Admin Dose 38.333 MLS/HR; Start 12/20/16 at 10:00; Stop 12/20/16 at 12:59; Status DC Potassium Chloride (KCl) 20 meq Q12HR PO ; Start 12/20/16 at 21:00; Stop at 21:00; Status DC Nifedipine (Procardia Xl) 60 mg DAILY PO ; Start 12/20/16 at 11:15; Stop at 12:03; Status DC Potassium Chloride (KCl) 20 meq Q12HR PO Last administered on 12/22/16 08:38; Admin Dose 20 MEQ; Start 12/20/16 at 12:00 Nifedipine (Procardia Xl) 30 mg ONCE ONCE PO Last administered on 12/20/16 12 :31; Admin Dose 30 MG; Start 12/20/16 at 12:00; Stop 12/20/16 at 12:02; Status DC Nifedipine (Procardia Xl) 60 mg DAILY PO ; Start 12/21/16 at 09:00; Status Cancel Diltiazem HCl 20 mg 20 mg ONCE ONCE IVP Last administered on 12/20/16 14:39; Admin Dose 20 MG; Start 12/20/16 at 14:15; Stop 12/20/16 at 14:19; Status DC Diltiazem HCl/ Sodium Chloride (Cardizem Inj/NS Inj) 125 ml @ 0 mls/hr TITRATE IV Last administered on 12/20/16 14:48; Admin Dose 0 MLS/HR; Start 12/20/16 at 14:15; Stop 12/20/16 at 18:40; Status DC Hydralazine HCl 10 mg 10 mg Q6HR PRN IV PUSH SBP>160, DBP>90 Last administered on 12/22/16 11:23; Admin Dose 10 MG; Start 12/20/16 at 14:45 Diltiazem HCl/ Sodium Chloride (Cardizem Inj/NS Inj) 125 ml @ 0 mls/hr TITRATE IV Last administered on 12/21/16 16:35; Admin Dose 0 MLS/HR; Start 12/20/16 at 18:45; Stop 12/21/16 at 17:57; Status DC Metoprolol Tartrate (Lopressor) 25 mg BID PO Last administered on 12/22/16 08: 39; Admin Dose 25 MG; Start 12/20/16 at 21:00 Digoxin 0.125 mg 0.125 mg DAILY PO Last administered on 12/22/16 08:39; Admin Dose 0.125 MG; Start 12/20/16 at 19:00 Magnesium Sulfate/ Dextrose (Magnesium Sulfate 1 Gm Premix) 100 ml @ 100 mls/ hr ONCE ONCE IV Last administered on 12/20/16 19:55; Admin Dose 100 MLS/HR; Start 12/20/16 at 19:15; Stop 12/20/16 at 20:14; Status DC Lorazepam (Ativan Inj) 1 mg ONCE ONCE IV PUSH Last administered on 12/21/16 04:27; Admin Dose 1 MG; Start 12/21/16 at 02:45; Stop 12/21/16 at 02:46; Status DC Haloperidol Lactate (Haldol Inj) 1 mg ONCE ONCE IM Last administered on 06:18; Admin Dose 1 MG; Start 12/21/16 at 06:15; Stop 12/21/16 at 06:16; Status DC Haloperidol (Haldol) 2 mg ONCE ONCE PO Last administered on 12/21/16 10:13; Admin Dose 2 MG; Start 12/21/16 at 09:15; Stop 12/21/16 at 09:19; Status DC Lorazepam (Ativan) 1 mg Q6HR PRN PO ANXIETY AND/OR AGITATION Last administered on 12/21/16 14:21; Admin Dose 1 MG; Start 12/21/16 at 10:15; Stop 12/21/16 at 16:49; Status DC Lorazepam (Ativan Inj) 1 mg ONCE PRN IV PUSH Agitation for MRI; Start 12/21/16 at 11:00; Stop 12/21/16 at 23:59; Status DC Diltiazem HCl (Cardizem) 60 mg Q6HR PO ; Start 12/21/16 at 18:00; Stop 12/21/16 at 18:00; Status DC Diltiazem HCl (Cardizem) 30 mg Q6HR PO Last administered on 12/22/16 12:21; Admin Dose 30 MG; Start 12/21/16 at 18:00 Haloperidol Lactate (Haldol Inj) 1 mg ONCE ONCE IM Last administered on 22:17; Admin Dose 1 MG; Start 12/21/16 at 22:00; Stop 12/21/16 at 22:02; Status DC Medical Decision Making MDM Remarks L2-3 discitis-osteomyelitis with mostly moderate canal stenosis. The degree of stenosis does not appear to be sufficient to cause cauda equina syndrome or significant nerve compression. There is some enhancement of the bilateral L4 nerve root extending into the thecal sac with probable nerve inflammation. Staphylococcus epidermidis in 1 blood culture from 12/17, no growth from those on 12/18. Pain not well controlled. Plan Plan Remarks ID to repeat aspiration today Obtain records from [facility] Continue to mobilize cautiously with physical therapy Follow-up biopsy off antibiotics pending LSO Francisco Asif MD Dec 22, 2016 14:33
--- NOTE | 2016-12-22 16:33 | HHI.PR ---
Subjective Remarks Patient is very confused c/o back pain bp elevated with a sbp in the 170's as per RN patient has been confused and agitated as per RN MRI could not be done because patient very agitated Objective Vitals Vital Signs Date Time Temp Pulse Resp B/P Pulse Ox O2 Delivery O2 Flow Rate FiO2 12/22/16 16:00 98.7 78 18 160/80 12/22/16 12:00 98.5 90 20 172/114 12/22/16 10:00 80 12/22/16 08:00 98.0 112 21 162/80 12/22/16 08:00 112 12/22/16 07:00 96 Room Air 12/22/16 06:36 97.5 95 21 160/80 12/22/16 06:00 95 12/22/16 04:15 25 12/22/16 04:00 95 12/22/16 02:00 95 12/22/16 00:00 95 12/22/16 00:00 97.8 97 20 88/60 12/21/16 22:00 95 12/21/16 21:32 24 12/21/16 20:00 95 12/21/16 20:00 97.5 97 20 154/60 12/21/16 19:00 98 Room Air 12/21/16 18:00 95 I/O 12/21/16 12/21/16 12/21/16 12/22/16 12/22/16 12/22/16 07:00 15:00 23:00 07:00 15:00 23:00 Intake Total 120 ml 502 ml 500 ml 400 ml Output Total 300 ml Balance 120 ml 202 ml 500 ml 400 ml Intake Oral 240 ml 500 ml 400 ml IV Total 120 ml 262 ml Output Urine Total 300 ml # Voids 0 3 # Bowel Movements 0 Result Diagram: 12/22/16 0341 12/22/16 0341 Imaging Last Impressions Head CT 12/20/16 0000 Signed Impressions: Service Date/Time: Wednesday, December 21, 2016 04:41 - CONCLUSION: Negative noncontrast head CT. Jeronimo Ayers MD Objective Remarks GEN: Well-developed, well-nourished patient. Laying flat in bed. CV: Regular rate and rhythm without obvious murmurs LUNGS: Clear to auscultation bilaterally. Normal respiratory effort. No wheezes , rales, rhonchi. GI: Soft, nontender, nondistended. No palpable masses. Bowel sounds WNL. EXT: No edema. NEURO/PSYCH: Patient very confused. alert to self. Medications and IVs Current Medications Medications (Trade) Dose Ordered Sig/Gene Route Start Time Stop Time Status Last Admin (Xanax) 1 mg Q6H PRN PO 12/17/16 17:45 12/22/16 20:11 (Zoloft) 100 mg DAILY PO 12/18/16 09:00 12/22/16 08:39 (Oramorph Sr) 15 mg BID PO 12/18/16 09:00 12/22/16 20:12 Famotidine 20 mg 20 mg DAILY PO 12/18/16 09:00 12/22/16 08:39 (NS 1000 ml Inj) 1,000 ml @ 42 mls/hr [id number] IV 12/17/16 17:34 12/22/16 17:39 (NS Flush) 2 ml UNSCH PRN IV FLUSH 12/17/16 17:45 (NS Flush) 2 ml BID IV FLUSH 12/17/16 21:00 12/22/16 20:12 (Tylenol) 650 mg Q4H PRN PO 12/17/16 17:45 12/22/16 08:39 (Zofran Inj) 4 mg Q6H PRN IVP 12/17/16 17:45 (Colace) 100 mg Q12H PO 12/17/16 17:45 12/22/16 17:59 (Milk Of Magnesia Liq) 30 ml Q12H PRN PO 12/17/16 17:45 (Tylenol) 650 mg Q6H PRN PO 12/17/16 17:45 (Roxicodone) 10 mg Q4H PRN PO 12/17/16 17:45 12/22/16 17:59 (Roxicodone) 5 mg Q4H PRN PO 12/17/16 17:45 12/22/16 03:17 (Narcan Inj) 0.4 mg UNSCH PRN IV 12/17/16 17:45 (Catapres) 0.1 mg Q6H PRN PO 12/17/16 17:45 12/22/16 20:12 (KCl) 20 meq Q12HR PO 12/20/16 12:00 12/22/16 20:11 (Apresoline Inj) 10 mg Q6HR PRN IV PUSH 12/20/16 14:45 12/22/16 18:31 (Lanoxin) 0.125 mg DAILY PO 12/20/16 19:00 12/22/16 08:39 (Cardizem) 30 mg Q6HR PO 12/21/16 18:00 12/22/16 17:58 (Lopressor) 50 mg BID PO 12/22/16 21:00 12/22/16 21:33 A/P Assessment and Plan 61-year-old male with past medical history of discitis/osteomyelitis, HTN, PTSD , hep C, GERD, OA, chronic pain who presented with worsening lower back pain found to have likely chronic discitis. 1.Encephalopathy/delerium. - Likely multifactorial-- now slightly improved with Ativan. Head CT and metabolic profile yesterday reassuring. This does not appear to be patient's baseline. WBC stable at 11.6. - DDX includes infection vs acute intracranial process vs benzo w/d vs metabolic disorder - MRI pending - Back biopsy pending, will then start ABX per ID - If patient develops fever, recommend STAT IR biopsy so that antibiotics may be resumed - ID and neurosurgery following, appreciate rec's 2) SIRS- History of L2-L3 discitis/OM- with moderate canal stenosis. Inability to ambulate declining from cane- walker and for the past 5 days unable to get up and ambulate. No fecal or urinary incontinence -PT ff elevated ESR, CRP. blood culture- Epidermidies- likely contaminant ID recommendations appreciated- IR consulted for biopsy- today if possible Dr. Powell neurosurgery ff 3) HTN: currently well controlled CArdura at 4 mg hs continue on Clonidine prn IV Hydralazine prn 4) Acute A.fib w/ RVR: Resolved. Hold Cardizem drip, may discontinue if no recurrence. If recurrence, transition to PO cardizem Continue Tele Cardiology was consulted 5) Hypokalemia: Resolved today 3.6. - Continue KCL 20 meq po bid - Repeat BMP in AM 6) Acute Kidney insufficiency- non oliguric- renal functions improving continue on IVF creatinine stable at 1.4 7) Anxiety/depression/PTSD: Chronic. Continue home Xanax and sertraline. 8) Agitation - will start Seroquel BID, Will Rx Haldol prn agitation. Discharge Planning Pending clinical improvement, biopsy, and ABX, likely will require prolonged course of antibiotics Justin Aguirre MD Dec 22, 2016 16:33
[2016-12-22] MEDS: SODIUM CHLOR 0.9% 1000 ML INJ 1,000 ML IV SCH (17:39)
--- NOTE | 2016-12-22 17:48 | PD.CARD.PN ---
Subjective Subjective Remarks Very confused, no CP or SOB Objective Medications Current Medications Medications (Trade) Dose Ordered Sig/Gene Route Start Time Stop Time Status Last Admin (Xanax) 1 mg Q6H PRN PO 12/17/16 17:45 12/22/16 13:38 (Zoloft) 100 mg DAILY PO 12/18/16 09:00 12/22/16 08:39 (Oramorph Sr) 15 mg BID PO 12/18/16 09:00 12/22/16 08:39 Famotidine 20 mg 20 mg DAILY PO 12/18/16 09:00 12/22/16 08:39 (NS 1000 ml Inj) 1,000 ml @ 42 mls/hr [id number] IV 12/17/16 17:34 12/21/16 09:21 (NS Flush) 2 ml UNSCH PRN IV FLUSH 12/17/16 17:45 (NS Flush) 2 ml BID IV FLUSH 12/17/16 21:00 12/22/16 08:39 (Tylenol) 650 mg Q4H PRN PO 12/17/16 17:45 12/22/16 08:39 (Zofran Inj) 4 mg Q6H PRN IVP 12/17/16 17:45 (Colace) 100 mg Q12H PO 12/17/16 17:45 12/22/16 06:26 (Milk Of Magnesia Liq) 30 ml Q12H PRN PO 12/17/16 17:45 (Tylenol) 650 mg Q6H PRN PO 12/17/16 17:45 (Roxicodone) 10 mg Q4H PRN PO 12/17/16 17:45 12/22/16 13:38 (Roxicodone) 5 mg Q4H PRN PO 12/17/16 17:45 12/22/16 03:17 (Narcan Inj) 0.4 mg UNSCH PRN IV 12/17/16 17:45 (Catapres) 0.1 mg Q6H PRN PO 12/17/16 17:45 12/22/16 09:52 (KCl) 20 meq Q12HR PO 12/20/16 12:00 12/22/16 08:38 (Apresoline Inj) 10 mg Q6HR PRN IV PUSH 12/20/16 14:45 12/22/16 11:23 (Lopressor) 25 mg BID PO 12/20/16 21:00 12/22/16 08:39 (Lanoxin) 0.125 mg DAILY PO 12/20/16 19:00 12/22/16 08:39 (Cardizem) 30 mg Q6HR PO 12/21/16 18:00 12/22/16 12:21 Vital Signs / I&O Vital Signs Date Time Temp Pulse Resp B/P Pulse Ox O2 Delivery O2 Flow Rate FiO2 12/22/16 16:00 75 12/22/16 16:00 98.7 78 18 160/80 12/22/16 14:00 90 12/22/16 12:00 98.5 90 20 172/114 12/22/16 12:00 90 12/22/16 10:00 80 12/22/16 08:00 98.0 112 21 162/80 12/22/16 08:00 112 12/22/16 07:00 96 Room Air 12/22/16 06:36 97.5 95 21 160/80 12/22/16 06:00 95 12/22/16 04:15 25 12/22/16 04:00 95 12/22/16 02:00 95 12/22/16 00:00 95 12/22/16 00:00 97.8 97 20 88/60 12/21/16 22:00 95 12/21/16 21:32 24 12/21/16 20:00 95 12/21/16 20:00 97.5 97 20 154/60 12/21/16 19:00 98 Room Air 12/21/16 18:00 95 I/O 12/21/16 12/21/16 12/21/16 12/22/16 12/22/16 12/22/16 07:00 15:00 23:00 07:00 15:00 23:00 Intake Total 120 ml 502 ml 500 ml 400 ml 799 ml Output Total 300 ml 400 ml Balance 120 ml 202 ml 500 ml 400 ml 399 ml Intake Oral 240 ml 500 ml 400 ml 320 ml IV Total 120 ml 262 ml 479 ml Output Urine Total 300 ml 400 ml # Voids 0 3 # Bowel Movements 0 3 Physical Exam GENERAL: Confused, in soft restraints SKIN: Warm and dry. HEAD: Normocephalic. EYES: No scleral icterus. No injection or drainage. NECK: Supple, trachea midline. No JVD or lymphadenopathy. CARDIOVASCULAR: Regular rate and rhythm without murmurs, gallops, or rubs. RESPIRATORY: Breath sounds equal bilaterally. No accessory muscle use. GASTROINTESTINAL: Abdomen soft, non-tender, nondistended. MUSCULOSKELETAL: No cyanosis, or edema. Laboratory Laboratory Tests Test 12/21/16 12/22/16 18:36 03:41 White Blood Count 15.4 TH/MM3 14.3 TH/MM3 Red Blood Count 4.91 MIL/MM3 5.01 MIL/MM3 Hemoglobin 12.5 GM/DL 12.7 GM/DL Hematocrit 38.1 % 39.0 % Mean Corpuscular Volume 77.7 FL 77.8 FL Mean Corpuscular Hemoglobin 25.4 PG 25.4 PG Mean Corpuscular Hemoglobin 32.7 % 32.6 % Concent Red Cell Distribution Width 16.2 % 16.6 % Platelet Count 515 TH/MM3 507 TH/MM3 Mean Platelet Volume 7.8 FL 8.0 FL Neutrophils (%) (Auto) 75.9 % 77.0 % Lymphocytes (%) (Auto) 11.5 % 10.4 % Monocytes (%) (Auto) 11.5 % 11.2 % Eosinophils (%) (Auto) 0.3 % 0.2 % Basophils (%) (Auto) 0.8 % 1.2 % Neutrophils # (Auto) 11.7 TH/MM3 11.0 TH/MM3 Lymphocytes # (Auto) 1.8 TH/MM3 1.5 TH/MM3 Monocytes # (Auto) 1.8 TH/MM3 1.6 TH/MM3 Eosinophils # (Auto) 0.0 TH/MM3 0.0 TH/MM3 Basophils # (Auto) 0.1 TH/MM3 0.2 TH/MM3 CBC Comment DIFF FINAL DIFF FINAL Differential Comment Sodium Level 138 MEQ/L 137 MEQ/L Potassium Level 3.3 MEQ/L 3.6 MEQ/L Chloride Level 101 MEQ/L 103 MEQ/L Carbon Dioxide Level 25.3 MEQ/L 25.0 MEQ/L Anion Gap 12 MEQ/L 9 MEQ/L Blood Urea Nitrogen 28 MG/DL 28 MG/DL Creatinine 1.42 MG/DL 1.42 MG/DL Estimat Glomerular Filtration 50 ML/MIN 50 ML/MIN Rate Random Glucose 112 MG/DL 99 MG/DL Lactic Acid Level 1.0 mmol/L Calcium Level 9.6 MG/DL 9.7 MG/DL Total Bilirubin 0.5 MG/DL 0.5 MG/DL Direct Bilirubin 0.2 MG/DL Indirect Bilirubin 0.3 MG/DL Aspartate Amino Transf 23 U/L 25 U/L (AST/SGOT) Alanine Aminotransferase 14 U/L 13 U/L (ALT/SGPT) Alkaline Phosphatase 103 U/L 96 U/L Ammonia LESS THAN 10 MCMOL/L Total Protein 8.1 GM/DL 8.2 GM/DL Albumin 3.0 GM/DL 3.1 GM/DL Imaging Last Impressions Head CT 12/20/16 0000 Signed Impressions: Service Date/Time: Wednesday, December 21, 2016 04:41 - CONCLUSION: Negative noncontrast head CT. Jeronimo Ayers MD Assessment and Plan Problem List: (1) Paroxysmal atrial fibrillation (2) Encephalopathy (3) Discitis of lumbar region (4) SIRS (systemic inflammatory response syndrome) (5) Osteomyelitis of lumbar spine (6) Hypertension Assessment and Plan Still w AMS. Stays in SR. Changed diltiazem to PO. Continue antihypertensive tx. Eval for discitis/osteomyelitis in progress, bx planned tomorrow. Debra Ramon MD Dec 22, 2016 17:48
--- NOTE | 2016-12-22 19:01 | EC ---
Study Study Date:12/22/2016 STUDY CONCLUSIONS SUMMARY - Left ventricle: The cavity size was normal. Wall thickness was increased increased in a pattern of mild to moderate LVH. Systolic function was normal. The estimated ejection fraction was 55%. Wall motion was normal; there were no regional wall motion abnormalities. - Aortic valve: Trileaflet; mildly thickened, mildly calcified leaflets. Trace regurgitation. - Mitral valve: Calcified annulus. - Right ventricle: The cavity size was mildly dilated. Wall thickness was normal. - Tricuspid valve: Mild regurgitation. - Pulmonary arteries: Systolic pressure was mildly increased. PA peak pressure: 47mm Hg (S). If LV function is below 40, please consider prescribing an ACEI or ARB or document rationale for non-use. PROCEDURE DATA STUDY STATUS: Elective. Procedure: Transthoracic echocardiography. Image quality was good. Scanning was performed from the parasternal, apical, and subcostal acoustic windows. Study completion: The patient tolerated the procedure well. Transthoracic echocardiography. M-mode, complete 2D, complete spectral Doppler, and color Doppler. Patient status: Inpatient. CARDIAC ANATOMY LEFT VENTRICLE: The cavity size was normal. Wall thickness was increased increased in a pattern of mild to moderate LVH. Systolic function was normal. The estimated ejection fraction was 55%. Wall motion was normal; there were no regional wall motion abnormalities. AORTIC VALVE: Trileaflet; mildly thickened, mildly calcified leaflets. Doppler: Transvalvular velocity was within the normal range. There was no stenosis. Trace regurgitation. AORTA: Aortic root: The aortic root was mildly dilated. MITRAL VALVE: Calcified annulus. Doppler: Transvalvular velocity was within the normal range. There was no evidence for stenosis. Trace regurgitation. Valve area by pressure half-time: 1.88cm^2. LEFT ATRIUM: The atrium was normal in size. RIGHT VENTRICLE: The cavity size was mildly dilated. Wall thickness was normal. PULMONIC VALVE: Doppler: Transvalvular velocity was within the normal range. There was no evidence for stenosis. No regurgitation. TRICUSPID VALVE: Structurally normal valve. Doppler: Transvalvular velocity was within the normal range. Mild regurgitation. PULMONARY ARTERY: The main pulmonary artery was normal-sized. Systolic pressure was mildly increased. RIGHT ATRIUM: The atrium was normal in size. PERICARDIUM: There was no pericardial effusion. SYSTEMIC VEINS: Inferior vena cava: The vessel was normal in size. BASIC MEASUREMENTS ADULT Normal Left ventricle LV internal dimension, ED, chordal level, 49.2 mm 43-52 PLAX LV internal dimension, ES, chordal level, 37.1 mm 23-38 PLAX Fractional shortening, chordal level, PLAX *25 % >29 LV posterior wall thickness, ED 11.6 mm IVS/LVPW ratio, ED *1.38 <1.3 Ventricular septum Septal thickness, ED 16 mm Aortic valve Leaflet separation 16 mm 15-26 Right ventricle RV internal dimension, ED, PLAX 29.7 mm 19-38 BASIC MEASUREMENTS ADULT Normal Aortic valve Leaflet separation 16 mm 15-26 Aorta Root diameter, ED *42 mm 20-37 Left atrium Anterior-posterior dimension, ES 36 mm 19-40 LA/aortic root ratio 0.86 DOPPLER MEASUREMENTS ADULT Normal Main pulmonary artery Pressure, S *47 mm Hg =30 Mitral valve Pressure half-time 117 ms Valve area, pressure half-time 1.88 cm^2 Tricuspid valve Regurgitant peak velocity 304 cm/s Peak RV-RA gradient, S 37 mm Hg Maximal regurgitant velocity 304 cm/s Systemic veins Estimated CVP 10 mm Hg Right ventricle RV pressure, S *47 mm Hg <30 LEGEND: Mean values are shown as u=mean value. Asterisk (*) alfaro values outside specified normal range. Debra Young [id number]
[2016-12-22] MEDS: METOPROLOL TARTRATE 50 MG TAB PO SCH (21:33)
[2016-12-22] MEDS: QUEtiapine FUMARATE 25 MG TAB PO SCH (23:35)
[2016-12-23] VITALS (12 sets, daily range): BP systolic 129–177; BP diastolic 73–95; PULSE 58–80; RESP 16–26; TEMP 97.6–98.7; O2SAT 93–100
[2016-12-23] MEDS: DILTIAZEM HCL 30 MG TAB PO SCH ×4 (01:01→17:43)
[2016-12-23] MEDS: ALPRAZolam 1 MG TAB PO PRN (03:07)
[2016-12-23] MEDS: hydrALAZINE HCL 20 MG/ML VIAL IV PUSH PRN ×2 (03:23→17:43)
[2016-12-23] MEDS: cloNIDine HCL 0.1 MG TAB PO PRN ×2 (06:25→18:37)
--- NOTE | 2016-12-23 09:18 | HHI.IDPN ---
Subjective Subjective Remarks Notes reviewed D/W RN Spoke with Patient finally sleeping - she states that he has not slept Transferred to [facility] Friday - had confusion, high BP, low K Also went into atrial fib - currently in NSR, RN states he is in and out of atrial fib Temps ok BP better On NPO Biopsy not done yet - prob this morning One (+) BC with Staph epi No new (+) BC Antibiotics None Lines PIV Past Medical History Hypertension Anxiety/depression/PTSD GERD Hepatitis C Osteoarthritis with chronic pain Discitis/osteomyelitis of the lumbar spine Past Surgical History Cholecystectomy Bilateral knee replacement Tonsils and adenoids Allergies: Coded Allergies: Toradol (Unverified Allergy, Severe, RASH, 12/17/16) Objective . Vital Signs Date Time Temp Pulse Resp B/P Pulse Ox O2 Delivery O2 Flow Rate FiO2 12/23/16 07:00 100 Room Air 12/23/16 06:00 77 12/23/16 04:00 97.8 65 20 129/73 96 12/23/16 04:00 65 12/23/16 02:00 58 12/23/16 00:00 60 12/23/16 00:00 98.2 65 16 133/82 100 12/22/16 22:00 63 12/22/16 20:00 77 12/22/16 20:00 98.4 83 20 176/83 96 Manual Cuff/Auscultation 12/22/16 19:00 96 Room Air 12/22/16 18:46 79 182/98 12/22/16 18:00 77 12/22/16 16:00 75 12/22/16 16:00 98.7 78 18 160/80 12/22/16 14:00 90 12/22/16 12:00 98.5 90 20 172/114 12/22/16 12:00 90 12/22/16 10:00 80 12/22/16 12/22/16 12/23/16 15:00 23:00 07:00 Intake Total 799 ml 462 ml 490 ml Output Total 400 ml Balance 399 ml 462 ml 490 ml Intake Oral 320 ml 240 ml 240 ml IV Total 479 ml 222 ml 250 ml Output Urine Total 400 ml # Voids 1 2 # Bowel Movements 3 0 0 . Laboratory Tests Test 12/21/16 12/22/16 18:36 03:41 White Blood Count 15.4 TH/MM3 14.3 TH/MM3 Red Blood Count 4.91 MIL/MM3 5.01 MIL/MM3 Hemoglobin 12.5 GM/DL 12.7 GM/DL Hematocrit 38.1 % 39.0 % Mean Corpuscular Volume 77.7 FL 77.8 FL Mean Corpuscular Hemoglobin 25.4 PG 25.4 PG Mean Corpuscular Hemoglobin 32.7 % 32.6 % Concent Red Cell Distribution Width 16.2 % 16.6 % Platelet Count 515 TH/MM3 507 TH/MM3 Mean Platelet Volume 7.8 FL 8.0 FL Neutrophils (%) (Auto) 75.9 % 77.0 % Lymphocytes (%) (Auto) 11.5 % 10.4 % Monocytes (%) (Auto) 11.5 % 11.2 % Eosinophils (%) (Auto) 0.3 % 0.2 % Basophils (%) (Auto) 0.8 % 1.2 % Neutrophils # (Auto) 11.7 TH/MM3 11.0 TH/MM3 Lymphocytes # (Auto) 1.8 TH/MM3 1.5 TH/MM3 Monocytes # (Auto) 1.8 TH/MM3 1.6 TH/MM3 Eosinophils # (Auto) 0.0 TH/MM3 0.0 TH/MM3 Basophils # (Auto) 0.1 TH/MM3 0.2 TH/MM3 CBC Comment DIFF FINAL DIFF FINAL Differential Comment Laboratory Tests Test 12/21/16 12/22/16 18:36 03:41 Sodium Level 138 MEQ/L 137 MEQ/L Potassium Level 3.3 MEQ/L 3.6 MEQ/L Chloride Level 101 MEQ/L 103 MEQ/L Carbon Dioxide Level 25.3 MEQ/L 25.0 MEQ/L Anion Gap 12 MEQ/L 9 MEQ/L Blood Urea Nitrogen 28 MG/DL 28 MG/DL Creatinine 1.42 MG/DL 1.42 MG/DL Estimat Glomerular Filtration 50 ML/MIN 50 ML/MIN Rate Random Glucose 112 MG/DL 99 MG/DL Lactic Acid Level 1.0 mmol/L Calcium Level 9.6 MG/DL 9.7 MG/DL Total Bilirubin 0.5 MG/DL 0.5 MG/DL Direct Bilirubin 0.2 MG/DL Indirect Bilirubin 0.3 MG/DL Aspartate Amino Transf 23 U/L 25 U/L (AST/SGOT) Alanine Aminotransferase 14 U/L 13 U/L (ALT/SGPT) Alkaline Phosphatase 103 U/L 96 U/L Ammonia LESS THAN 10 MCMOL/L Total Protein 8.1 GM/DL 8.2 GM/DL Albumin 3.0 GM/DL 3.1 GM/DL Physical Exam GENERAL: resting, not in any distress SKIN: Cool and moist. No generalized rash or ecchymosis. HEENT: [place] conjunctivae, no petechia or hemorrhage. No scleral icterus. No injection or drainage. Moist oral mucosa. Throat without erythema, or exudate. NECK: Trachea midline. No JVD . Has an indurated area below L submandibular area, that is not tender. Supple, nontender, no meningeal signs. CARDIOVASCULAR: Regular rate and rhythm without gallops, or rubs. ?soft murmur at base of the heart RESPIRATORY: Clear to auscultation. Breath sounds equal bilaterally. No wheezes , rales, or rhonchi. GASTROINTESTINAL: Abdomen soft, non-tender, nondistended. No hepato-splenomegaly , or palpable masses. No guarding. No rebound. Bowel sounds are present and normoactive. MUSCULOSKELETAL: Extremities without clubbing, cyanosis, or edema. No calf tenderness. He has scars in both knees compatible with his surgical history. Has no pain in movement of his knee joints or hip joints. NEUROLOGICAL: Non-focal PSYCH: Normal affect, calm and cooperative. BACK: spine tenderness in lumbar region LINE: PIV with no evidence of infection Assessment & Plan Remarks IMPRESSION L2-L3 discitis, osteomyelitis, S/P Rx with IV Rocephin - initial C/S neg, but G/S with rare GNR - worse clinically - repeat scan, findings ?same as previous MRI One (+) BC with Staph epi, ?real or contaminant RECOMMENDATION Follow C/S For aspiration/biopsy of back Repeat aspirate of back, send for G/S C/S, fungal and AFB Monitor progress Prob start IV vanco after biopsy done D/W RN Spoke with Sandra,Audrey Jung MD December 23, 2016 09:18
[2016-12-23] MEDS: POTASSIUM CHLORIDE 20 MEQ CONTROLLED RELEASE TAB PO SCH ×2 (09:25→21:02)
[2016-12-23] MEDS: MORPHINE SULFATE 15 MG CONTROLLED RELEASE TAB PO SCH ×2 (09:25→21:02)
[2016-12-23] MEDS: METOPROLOL TARTRATE 50 MG TAB PO SCH ×2 (09:25→21:02)
[2016-12-23] MEDS: FAMOTIDINE 20 MG TAB PO SCH (09:25)
[2016-12-23] MEDS: SODIUM CHLORIDE 0.9% FLUSH 10 ML FLUSH IV FLUSH SCH ×2 (09:25→21:00)
[2016-12-23] MEDS: SERTRALINE HCL 100 MG TAB PO SCH (09:25)
[2016-12-23] MEDS: QUEtiapine FUMARATE 25 MG TAB PO SCH ×2 (09:26→21:02)
[2016-12-23] MEDS: DIGOXIN 0.125 MG TAB PO SCH (09:26)
--- NOTE | 2016-12-23 12:48 | HHI.NSPN ---
(Mesfin Elaine) Note Status Status: Progress Note (Mesfin Elaine) Interval History Interval History 12/17: 61-year-old male who fell at his home in mid September with subsequent onset of progressive low back pain. He was admitted to [facility] towards the end of September and diagnosed with discitis-osteomyelitis and treated with 8 weeks of intravenous Rocephin which was completed approximately 10 days ago. He has continued to have progression of low back pain, and was seen by orthopedic surgery recently and sent for an MRI which was completed earlier today at [facility]. The study findings were reviewed by radiology and orthopedics, and the patient subsequently referred to the emergency room for admission and further evaluation. 12/18: Patient still with pain to the low back with radiation to the groins, numbness to groins persist. 12/19: Patient awake & alert. Still with low back pain and numbness to the groins. Fixated on not receiving his home medications. 12/20: Awake & alert. Pain still present to the low back with numbness still to the groins. Still some what slow in responding. at bedside and expresses concern that he wasn't treated properly for the infection at [facility]. Transferred to [facility] due to confusion, hypertension, hypokalemia & atrial fibrillation. 12/21: Neurologically stable. Remains with pain along bilateral groins. Waiting for CT-guided biopsy to guide antibiotic treatment. 12/22: Neurologically stable although continues with confusion. Head CT was done on unremarkable. Waiting for CT-guided biopsy to guide antibiotic treatment. 12/23: Still with back pain. Confusion appears improved, oriented x3. Sleeping but awoke to verbal. He is scheduled for a CT-guided biopsy at 1330 today. (Mesfin Elaine) Labs, Micro, & Vital Signs Constitutional Vital Signs Date Time Temp Pulse Resp B/P Pulse Ox O2 Delivery O2 Flow Rate FiO2 12/23/16 10:00 68 12/23/16 08:00 98.1 75 22 171/79 93 12/23/16 08:00 75 12/23/16 07:00 100 Room Air 12/23/16 06:00 77 12/23/16 04:00 97.8 65 20 129/73 96 12/23/16 04:00 65 12/23/16 02:00 58 12/23/16 00:00 60 12/23/16 00:00 98.2 65 16 133/82 100 12/22/16 22:00 63 12/22/16 20:00 77 12/22/16 20:00 98.4 83 20 176/83 96 Manual Cuff/Auscultation 12/22/16 19:00 96 Room Air 12/22/16 18:46 79 182/98 12/22/16 18:00 77 12/22/16 16:00 75 12/22/16 16:00 98.7 78 18 160/80 12/22/16 14:00 90 12/23/16 07:00 Intake Total 1751 ml Output Total 400 ml Balance 1351 ml (Mesfin Elaine) Review of Systems/Exam ROS Constitutional: Denies any fever or sweats. Neuro: Groins still with numbness radiating from lateral back. Denies any headache or dizziness. Resp: Denies any shortness of breath or productive cough. Cardiac: Denies any chest pain, palpitations or irregular heart beat. GI: Denies any abdominal pain, nausea, vomiting or bowel incontinence. : Denies any bladder incontinence. Back: Lower back pain still present. Extremities: States he has weakness to both knees and can't lift them up. Denies any other weakness or pain to the arms or legs. Exam Constitutional: NAD, slow to respond to questions. HEENT: Normocephalic, atraumatic. PERRLA, EOM intact. Resp: CTAB w/o W/R/R, equal excursion, non-laboured, on RA. CV: S1S2 w/RRR w/o M/G/R, cap refill < 2 sec, radial & pedal pulses 2+ bilaterally, no pedal edema. Monitor is sinus rhythm w/o ectopy when seen. GI: Abdomen soft, nontender, positive bowel sounds, no palpable masses or organomegaly. Extremities: States he isn't able to lift his knees due to weakness. Extremities normal, NTTP, no evident discolouration, deformity or clubbing. Back: TTP across lower back laterally. Neuro: AAOx3. Speech clear but with slow thought process. Speech muffled due to patient not having dentures in. Follows commands. BUE & plantar flexion/ extension 5/5 but patient states unable to do hip flexion or bend knees. Decreased sensation from lateral lower back around to groin bilaterally. Face symmetrical. (Mesfin Elaine) Medications Current Medications Current Medications Medications (Trade) Dose Ordered Sig/Gene Route Start Time Stop Time Status Last Admin (Xanax) 1 mg Q6H PRN PO 12/17/16 17:45 12/23/16 03:07 (Zoloft) 100 mg DAILY PO 12/18/16 09:00 12/23/16 09:25 (Oramorph Sr) 15 mg BID PO 12/18/16 09:00 12/23/16 09:25 Famotidine 20 mg 20 mg DAILY PO 12/18/16 09:00 12/23/16 09:25 (NS 1000 ml Inj) 1,000 ml @ 42 mls/hr [id number] IV 12/17/16 17:34 12/22/16 17:39 (NS Flush) 2 ml UNSCH PRN IV FLUSH 12/17/16 17:45 (NS Flush) 2 ml BID IV FLUSH 12/17/16 21:00 12/23/16 09:25 (Tylenol) 650 mg Q4H PRN PO 12/17/16 17:45 12/22/16 08:39 (Zofran Inj) 4 mg Q6H PRN IVP 12/17/16 17:45 (Colace) 100 mg Q12H PO 12/17/16 17:45 12/22/16 17:59 (Milk Of Magnesia Liq) 30 ml Q12H PRN PO 12/17/16 17:45 (Tylenol) 650 mg Q6H PRN PO 12/17/16 17:45 (Roxicodone) 10 mg Q4H PRN PO 12/17/16 17:45 12/23/16 12:10 (Roxicodone) 5 mg Q4H PRN PO 12/17/16 17:45 12/22/16 03:17 (Narcan Inj) 0.4 mg UNSCH PRN IV 12/17/16 17:45 (Catapres) 0.1 mg Q6H PRN PO 12/17/16 17:45 12/23/16 06:25 (KCl) 20 meq Q12HR PO 12/20/16 12:00 12/23/16 09:25 (Apresoline Inj) 10 mg Q6HR PRN IV PUSH 12/20/16 14:45 12/23/16 03:23 (Lanoxin) 0.125 mg DAILY PO 12/20/16 19:00 12/23/16 09:26 (Cardizem) 30 mg Q6HR PO 12/21/16 18:00 12/23/16 12:03 (Lopressor) 50 mg BID PO 12/22/16 21:00 12/23/16 09:25 (SEROquel) 25 mg BID PO 12/22/16 23:15 12/23/16 09:26 (Haldol Inj) 2 mg Q6H PRN IM 12/22/16 23:15 (Mesfin Elaine) Medical Decision Making MDM Remarks Impression: L2-3 discitis-osteomyelitis with mostly moderate canal stenosis. The degree of stenosis does not appear to be sufficient to cause cauda equina syndrome or significant nerve compression. There is some enhancement of the bilateral L4 nerve root extending into the thecal sac with probable nerve inflammation. Staphylococcus epidermidis in 1 blood culture from 12/17 (questionable contaminant), no growth from those on 12/18 (final). Pain seems controlled at present. Appears to be neurologically stable at this time Hypertension Hypokalemia, resolved Atrial fibrillation, per Nursing he is in & out of atrial fib (Mesfin Elaine) Plan Plan Remarks Discussed plan of care with patient & , no questions asked Discussed plan of care with Nursing Plan is for CT-guided biopsy at 1330 today Abx per ID following biopsy, plan is to start vanco Continue to mobilize cautiously with physical therapy LSO brace (Mesfin Elaine) Attending Statement I have personally seen and examined the patient on the date of this note. Pertinent documentation and study results have been reviewed by the undersigned. I have personally developed the treatment plan and performed medical decision making. Agree with findings, exam, and treatment plan as noted above. Patient underwent CT-guided biopsy today. A little less confused this evening according to nursing staff Otherwise neurologic exam stable (Pravin Powell MD) Mesfin Elaine December 23, 2016 12:48 Pravin Powell MD December 23, 2016 21:36 Patient finally sleeping - she states that he has not slept Transferred to [facility] Friday - had confusion, high BP, low K Also went into atrial fib - currently in NSR, RN states he is in and out of atrial fib Temps ok BP better On NPO Biopsy not done yet - prob this morning Repeat aspirate of back, send for G/S C/S, fungal and AFB Monitor progress Prob start IV vanco after biopsy done Mesfin Elaine December 23, 2016 12:48
[2016-12-23] MEDS ORDERED: fentaNYL CITRATE 250 MCG/5 ML AMP ONE (14:26)
[2016-12-23] MEDS ORDERED: MIDAZOLAM HCL 5 MG/5 ML VIAL ONE (14:26)
--- NOTE | 2016-12-23 15:07 | PD.RAD ---
Post Procedure Progress Note Pre Procedure Diagnosis: (1) Osteomyelitis of lumbar spine (2) Discitis of lumbar region Post Procedure Diagnosis: (1) Discitis of lumbar region (2) Osteomyelitis of lumbar spine Procedure Date: December 23, 2016 Supervising Radiologist: Octavio Bernstein JR Proceduralist/Assist: Bette Mckeon, RT(R)(), Renetta Brooks RT(R)(CV) Anesthesia: Conscious Sedation Plan of Activity Patient to Unit: Critical Care Patient Condition: Good See PACS Report for procedural detail/treatment Spinal Procedure Disc Aspiration L2-L3 Findings: Fluoro guided L2-3 disc apiration yielded 0.1 ml of serosagenous fluid. Sent to micro. Amandeep Jr.,Octavio Vasquez MD December 23, 2016 15:07
--- NOTE | 2016-12-23 15:50 | RADRPT ---
EXAM DATE/TIME: 12/23/2016 14:54 [facility] COMPARISON: No previous studies available for comparison. INDICATIONS : Severe back pain. Abmormal MRI. Osteomyelitis/discitis L2-L3 MEDICAL HISTORY : 1. Hep C 2. PTSD 3. HTN 4. GERD 5. Osteoarthritis SURGICAL HISTORY : 1. Cholecystectomy 2. Bilateral knee replacments 3. Tonsillectomy ENCOUNTER: Initial ACUITY: 1 week PAIN SCORE: 10/10 LOCATION: low back FLUORO TIME: 2.1 minutes IMAGE SERIES: 1 SEDATION TIME: 30 minutes MEDICATION(S): 1.) 2.5 mg midazolam (Versed) IV 2.) 175 mcg fentanyl (Sublimaze) IV DEVICE(S): 1.) 22 gauge 7 " spinal needle needle Core specimen(s) was obtained and submitted to laboratory for pathologic evaluation. PROCEDURE : 1. Fluoroscopically guided needle biopsy. 2. Conscious sedation with continuous EKG and Oximetry monitoring. The risks, benefits and alternatives to the procedure were explained and verbal and written consent w as obtained. The site was prepped in sterile fashion. Full sterile technique was used, including cap, mask, steri le gloves and gown and a large sterile sheet. Hand hygiene and 2% chlorhexidine and/or betadine/alco hol prep was utilized per protocol for cutaneous antisepsis. The skin and subcutaneous tissues were infiltrated with local anesthetic solution. With fluoroscopic guidance and utilizing a left posterior oblique approach a 22 gauge spinal needle w as passed into the L2-L3 disc space. Aspiration yielded 0.1 mL of serosanguineous fluid. This was walter meet in a culture tube. Conscious sedation was performed with the prescribed dosages and duration as above in the presence of an independent trained radiology nurse to assist in the monitoring of the patient. EKG and oximetry remained stable throughout the procedure. CONCLUSION: Uncomplicated needle aspiration of the L2-L3 disc space as above. Octavio Bernstein Jr., MD on December 23, 2016 at 15:42 Board Certified Radiologist. This report was verified electronically.
--- NOTE | 2016-12-23 16:54 | RADRPT ---
EXAM DATE/TIME: 12/23/2016 13:48 [facility] COMPARISON: No previous studies available for comparison. INDICATIONS : CVA. Altered mental status. MEDICAL HISTORY : Hypertension. SURGICAL HISTORY : Cholecystectomy. Total knee replacement, right. Total knee replacement, left. ENCOUNTER: Initial ACUITY: 1 day PAIN SCORE: 0/10 LOCATION: cranial TECHNIQUE: Multiplanar, multisequence MRI of the brain was performed without contrast. FINDINGS: CEREBRUM: The ventricles are normal for age. No evidence of midline shift, mass lesion, hemorrhage or acute in farction. No extraaxial fluid collections are seen. The pituitary gland and suprasellar cistern are normal in configuration. WHITE MATTER: Scattered punctate areas of white matter T2 prolongation are present involving periventricular and oliveira bcortical white matter regions. These are nonspecific however fairly abundant. POSTERIOR FOSSA: The cerebellum and brainstem are intact. The 4th ventricle is midline. The cerebellopontine angle is unremarkable. The cerebellar tonsils are normal in position. DIFFUSION IMAGING: No focal areas of restricted diffusion are seen. No evidence of acute infarction. EXTRACRANIAL: The visualized portions of the orbits and paranasal sinuses are unremarkable. CONCLUSION: Significant white matter disease. Jeronimo Guillaume MD on December 23, 2016 at 16:51 Board Certified Radiologist. This report was verified electronically.
[2016-12-23] MEDS: DOCUSATE SODIUM 100 MG CAP PO SCH (16:58)
[2016-12-23] MEDS: SODIUM CHLOR 0.9% 1000 ML INJ 1,000 ML IV SCH (17:28)
[2016-12-23] MEDS: SODIUM CHLORIDE 0.9% FLUSH 10 ML FLUSH IV FLUSH PRN (17:43)
--- NOTE | 2016-12-23 18:47 | PD.CARD.PN ---
Subjective Subjective Remarks No CP or SOB, somnolent Objective Medications Current Medications Medications (Trade) Dose Ordered Sig/Gene Route Start Time Stop Time Status Last Admin (Xanax) 1 mg Q6H PRN PO 12/17/16 17:45 12/23/16 03:07 (Zoloft) 100 mg DAILY PO 12/18/16 09:00 12/23/16 09:25 (Oramorph Sr) 15 mg BID PO 12/18/16 09:00 12/23/16 09:25 Famotidine 20 mg 20 mg DAILY PO 12/18/16 09:00 12/23/16 09:25 (NS 1000 ml Inj) 1,000 ml @ 42 mls/hr [id number] IV 12/17/16 17:34 12/23/16 17:28 (NS Flush) 2 ml UNSCH PRN IV FLUSH 12/17/16 17:45 12/23/16 17:43 (NS Flush) 2 ml BID IV FLUSH 12/17/16 21:00 12/23/16 09:25 (Tylenol) 650 mg Q4H PRN PO 12/17/16 17:45 12/22/16 08:39 (Zofran Inj) 4 mg Q6H PRN IVP 12/17/16 17:45 (Colace) 100 mg Q12H PO 12/17/16 17:45 12/22/16 17:59 (Milk Of Magnesia Liq) 30 ml Q12H PRN PO 12/17/16 17:45 (Tylenol) 650 mg Q6H PRN PO 12/17/16 17:45 (Roxicodone) 10 mg Q4H PRN PO 12/17/16 17:45 12/23/16 12:10 (Roxicodone) 5 mg Q4H PRN PO 12/17/16 17:45 12/22/16 03:17 (Narcan Inj) 0.4 mg UNSCH PRN IV 12/17/16 17:45 (Catapres) 0.1 mg Q6H PRN PO 12/17/16 17:45 12/23/16 18:37 (KCl) 20 meq Q12HR PO 12/20/16 12:00 12/23/16 09:25 (Apresoline Inj) 10 mg Q6HR PRN IV PUSH 12/20/16 14:45 12/23/16 17:43 (Lanoxin) 0.125 mg DAILY PO 12/20/16 19:00 12/23/16 09:26 (Cardizem) 30 mg Q6HR PO 12/21/16 18:00 12/23/16 17:43 (Lopressor) 50 mg BID PO 12/22/16 21:00 12/23/16 09:25 (SEROquel) 25 mg BID PO 12/22/16 23:15 12/23/16 09:26 (Haldol Inj) 2 mg Q6H PRN IM 12/22/16 23:15 Vital Signs / I&O Vital Signs Date Time Temp Pulse Resp B/P Pulse Ox O2 Delivery O2 Flow Rate FiO2 12/23/16 18:00 80 12/23/16 16:00 69 12/23/16 16:00 98.7 69 22 170/77 97 12/23/16 14:00 68 12/23/16 12:00 97.6 64 26 159/95 95 12/23/16 12:00 68 12/23/16 10:00 68 12/23/16 08:00 98.1 75 22 171/79 93 12/23/16 08:00 75 12/23/16 07:00 100 Room Air 12/23/16 06:00 77 12/23/16 04:00 97.8 65 20 129/73 96 12/23/16 04:00 65 12/23/16 02:00 58 12/23/16 00:00 60 12/23/16 00:00 98.2 65 16 133/82 100 12/22/16 22:00 63 12/22/16 20:00 77 12/22/16 20:00 98.4 83 20 176/83 96 Manual Cuff/Auscultation 12/22/16 19:00 96 Room Air 12/22/16 18:46 79 182/98 I/O 12/22/16 12/22/16 12/22/16 12/23/16 12/23/16 12/23/16 07:00 15:00 23:00 07:00 15:00 23:00 Intake Total 400 ml 799 ml 462 ml 490 ml 60 ml Output Total 400 ml 400 ml Balance 400 ml 399 ml 462 ml 490 ml -340 ml Intake Oral 400 ml 320 ml 240 ml 240 ml 60 ml IV Total 479 ml 222 ml 250 ml Output Urine Total 400 ml 400 ml # Voids 3 1 2 # Bowel Movements 3 0 0 Physical Exam GENERAL: Confused, in soft restraints SKIN: Warm and dry. HEAD: Normocephalic. EYES: No scleral icterus. No injection or drainage. NECK: Supple, trachea midline. No JVD or lymphadenopathy. CARDIOVASCULAR: Regular rate and rhythm without murmurs, gallops, or rubs. RESPIRATORY: Breath sounds equal bilaterally. No accessory muscle use. GASTROINTESTINAL: Abdomen soft, non-tender, nondistended. MUSCULOSKELETAL: No cyanosis, or edema. Laboratory Laboratory Tests Test 12/19/16 12/21/16 12/21/16 12/22/16 17:10 03:56 18:36 03:41 Prothrombin Time 11.4 SEC Prothromb Time International 1.0 RATIO Ratio Magnesium Level 2.2 MG/DL Lactic Acid Level 1.0 mmol/L Direct Bilirubin 0.2 MG/DL Indirect Bilirubin 0.3 MG/DL Ammonia LESS THAN 10 MCMOL/L White Blood Count 14.3 TH/MM3 Red Blood Count 5.01 MIL/MM3 Hemoglobin 12.7 GM/DL Hematocrit 39.0 % Mean Corpuscular Volume 77.8 FL Mean Corpuscular Hemoglobin 25.4 PG Mean Corpuscular Hemoglobin 32.6 % Concent Red Cell Distribution Width 16.6 % Platelet Count 507 TH/MM3 Mean Platelet Volume 8.0 FL Neutrophils (%) (Auto) 77.0 % Lymphocytes (%) (Auto) 10.4 % Monocytes (%) (Auto) 11.2 % Eosinophils (%) (Auto) 0.2 % Basophils (%) (Auto) 1.2 % Neutrophils # (Auto) 11.0 TH/MM3 Lymphocytes # (Auto) 1.5 TH/MM3 Monocytes # (Auto) 1.6 TH/MM3 Eosinophils # (Auto) 0.0 TH/MM3 Basophils # (Auto) 0.2 TH/MM3 CBC Comment DIFF FINAL Differential Comment Sodium Level 137 MEQ/L Potassium Level 3.6 MEQ/L Chloride Level 103 MEQ/L Carbon Dioxide Level 25.0 MEQ/L Anion Gap 9 MEQ/L Blood Urea Nitrogen 28 MG/DL Creatinine 1.42 MG/DL Estimat Glomerular Filtration 50 ML/MIN Rate Random Glucose 99 MG/DL Calcium Level 9.7 MG/DL Total Bilirubin 0.5 MG/DL Aspartate Amino Transf 25 U/L (AST/SGOT) Alanine Aminotransferase 13 U/L (ALT/SGPT) Alkaline Phosphatase 96 U/L Total Protein 8.2 GM/DL Albumin 3.1 GM/DL Imaging Last Impressions Needle Biopsy/Aspiration X-Ray 12/23/16 Signed Impressions: Service Date/Time: Friday, December 23, 2016 14:54 - CONCLUSION: Uncomplicated needle aspiration of the L2-L3 disc space as above. Octavio Bernstein Jr., MD Brain MRI 12/23/16 Signed Impressions: Service Date/Time: Friday, December 23, 2016 13:48 - CONCLUSION: Significant white matter disease. Jeronimo Guillaume MD Head CT 12/20/16 0000 Signed Impressions: Service Date/Time: Wednesday, December 21, 2016 04:41 - CONCLUSION: Negative noncontrast head CT. Jeronimo Ayers MD Assessment and Plan Problem List: (1) Paroxysmal atrial fibrillation (2) Encephalopathy (3) Discitis of lumbar region (4) SIRS (systemic inflammatory response syndrome) (5) Osteomyelitis of lumbar spine (6) Hypertension Assessment and Plan Still confused. Stays in SR. Continue and titrate antihypertensive tx. Eval for discitis/osteomyelitis in progress. Stable from cardiac standpoint. Debra Ramon MD December 23, 2016 18:47
--- NOTE | 2016-12-23 19:35 | HHI.PR ---
Subjective Remarks Follow up for discitis, osteomyelitis. Mr. Healy is doing well. Denies any fever, chills. No acute concerns. Objective Vitals Vital Signs Date Time Temp Pulse Resp B/P Pulse Ox O2 Delivery O2 Flow Rate FiO2 12/23/16 18:00 80 12/23/16 16:00 69 12/23/16 16:00 98.7 69 22 170/77 97 12/23/16 14:00 68 12/23/16 12:00 97.6 64 26 159/95 95 12/23/16 12:00 68 12/23/16 10:00 68 12/23/16 08:00 98.1 75 22 171/79 93 12/23/16 08:00 75 12/23/16 07:00 100 Room Air 12/23/16 06:00 77 12/23/16 04:00 97.8 65 20 129/73 96 12/23/16 04:00 65 12/23/16 02:00 58 12/23/16 00:00 60 12/23/16 00:00 98.2 65 16 133/82 100 12/22/16 22:00 63 12/22/16 20:00 77 12/22/16 20:00 98.4 83 20 176/83 96 Manual Cuff/Auscultation I/O 12/22/16 12/22/16 12/22/16 12/23/16 12/23/16 12/23/16 07:00 15:00 23:00 07:00 15:00 23:00 Intake Total 400 ml 799 ml 462 ml 490 ml 60 ml Output Total 400 ml 400 ml Balance 400 ml 399 ml 462 ml 490 ml -340 ml Intake Oral 400 ml 320 ml 240 ml 240 ml 60 ml IV Total 479 ml 222 ml 250 ml Output Urine Total 400 ml 400 ml # Voids 3 1 2 # Bowel Movements 3 0 0 Result Diagram: 12/22/16 0341 12/22/16 0341 Imaging Last Impressions Needle Biopsy/Aspiration X-Ray 12/23/16 0000 Signed Impressions: Service Date/Time: Friday, December 23, 2016 14:54 - CONCLUSION: Uncomplicated needle aspiration of the L2-L3 disc space as above. Octavio Bernstein Jr., MD Brain MRI 12/23/16 0000 Signed Impressions: Service Date/Time: Friday, December 23, 2016 13:48 - CONCLUSION: Significant white matter disease. Jeronimo Guillaume MD Head CT 12/20/16 0000 Signed Impressions: Service Date/Time: Wednesday, December 21, 2016 04:41 - CONCLUSION: Negative noncontrast head CT. Jeronimo Ayers MD Objective Remarks GENERAL: Alert, NAD. SKIN: Warm and dry. HEAD: Normocephalic. EYES: No scleral icterus. No injection or drainage. NECK: Supple, trachea midline. No JVD or lymphadenopathy. CARDIOVASCULAR: Regular rate and rhythm without murmurs, gallops, or rubs. RESPIRATORY: Breath sounds equal bilaterally. No accessory muscle use. GASTROINTESTINAL: Abdomen soft, non-tender, nondistended. MUSCULOSKELETAL: No cyanosis, or edema. BACK: Nontender without obvious deformity. No CVA tenderness. Procedures 12/23/2016 Disc Aspiration L2-L3 A/P Assessment and Plan 61-year-old male with past medical history of discitis/osteomyelitis, HTN, PTSD , hep C, GERD, OA, chronic pain who presented with worsening lower back pain found to have likely chronic discitis. - L2-L3 discitis - osteomyelitis with moderate canal stenosis. - Neurosurgery following - do not think stenosis is significant enough to cause Cauda Equina syndrome. - ID is following. Patient is currently on IV vancomycin - If okay with neurosurgery, we will transfer patient to the floor. - Atrial fibrillation - Continue Cardizem 60mg PO Q6hrs, Metoprolol 50mg BID. - [id number] score is likely 1 (HTN). May benefit from aspirin 75mg Qday. - Acute kidney injury - Creatinine improved from 2.60 --> 1.42 - Hypertension - Will start patient on Amlodipine 5mg Qday if BP continues to be elevated. - Continue Cardizem, Metoprolol for rate control. - Agitation/Hallucination - Continue Seroquel 25mg BID. Full code. SCDs. If okay with neurosurgery, we will start Heparin SQ. Rochelle Coleman DO December 23, 2016 19:35
[2016-12-24] VITALS (12 sets, daily range): BP systolic 131–175; BP diastolic 67–94; PULSE 56–74; RESP 16–28; TEMP 97.8–98.7; O2SAT 95–99
[2016-12-24] MEDS: DILTIAZEM HCL 30 MG TAB PO SCH ×5 (00:42→23:59)
[2016-12-24] MEDS: DOCUSATE SODIUM 100 MG CAP PO SCH ×2 (06:29→18:28)
[2016-12-24] MEDS: cloNIDine HCL 0.1 MG TAB PO PRN ×2 (07:33→18:29)
[2016-12-24] MEDS: QUEtiapine FUMARATE 25 MG TAB PO SCH ×2 (09:29→20:14)
[2016-12-24] MEDS: SERTRALINE HCL 100 MG TAB PO SCH (09:29)
[2016-12-24] MEDS: METOPROLOL TARTRATE 50 MG TAB PO SCH ×2 (09:29→20:14)
[2016-12-24] MEDS: POTASSIUM CHLORIDE 20 MEQ CONTROLLED RELEASE TAB PO SCH ×2 (09:29→20:14)
[2016-12-24] MEDS: MORPHINE SULFATE 15 MG CONTROLLED RELEASE TAB PO SCH ×2 (09:30→20:14)
[2016-12-24] MEDS: SODIUM CHLORIDE 0.9% FLUSH 10 ML FLUSH IV FLUSH SCH ×2 (09:30→20:14)
[2016-12-24] MEDS: FAMOTIDINE 20 MG TAB PO SCH (09:30)
--- NOTE | 2016-12-24 10:46 | HHI.NSPN ---
(Mesfin Elaine) Note Status Status: Progress Note (Mesfin Elaine) Interval History Interval History 12/17: 61-year-old male who fell at his home in mid September with subsequent onset of progressive low back pain. He was admitted to [facility] towards the end of September and diagnosed with discitis-osteomyelitis and treated with 8 weeks of intravenous Rocephin which was completed approximately 10 days ago. He has continued to have progression of low back pain, and was seen by orthopedic surgery recently and sent for an MRI which was completed earlier today at [facility]. The study findings were reviewed by radiology and orthopedics, and the patient subsequently referred to the emergency room for admission and further evaluation. 12/18: Patient still with pain to the low back with radiation to the groins, numbness to groins persist. 12/19: Patient awake & alert. Still with low back pain and numbness to the groins. Fixated on not receiving his home medications. 12/20: Awake & alert. Pain still present to the low back with numbness still to the groins. Still some what slow in responding. at bedside and expresses concern that he wasn't treated properly for the infection at [facility]. Transferred to [facility] due to confusion, hypertension, hypokalemia & atrial fibrillation. 12/21: Neurologically stable. Remains with pain along bilateral groins. Waiting for CT-guided biopsy to guide antibiotic treatment. 12/22: Neurologically stable although continues with confusion. Head CT was done on unremarkable. Waiting for CT-guided biopsy to guide antibiotic treatment. 12/23: Still with back pain. Confusion appears improved, oriented x3. Sleeping but awoke to verbal. He is scheduled for a CT-guided biopsy at 1330 today. 12/24: Patient was able to sleep through the night. Low back pain started after he woke up. No numbness or tingling. He had his biopsy yesterday afternoon and also had an MRI brain which demonstrated significant white matter disease. (Mesfin Elaine) Labs, Micro, & Vital Signs Results Allergies Coded Allergies Type Severity Reaction Last Updated Verified Toradol Allergy Severe RASH 12/17/16 No Recent Impressions Needle Biopsy/Aspiration X-Ray 12/23/16 0000 Signed Impressions: Service Date/Time: Friday, December 23, 2016 14:54 - CONCLUSION: Uncomplicated needle aspiration of the L2-L3 disc space as above. Octavio Bernstein Jr., MD Brain MRI 12/23/16 0000 Signed Impressions: Service Date/Time: Friday, December 23, 2016 13:48 - CONCLUSION: Significant white matter disease. Jeronimo Guillaume MD 12/22////// 06:00 18:00 06:00 18:00 06:00 18:00 Intake Total 900 ml 799 ml 952 ml 60 ml 1347 ml Output Total 400 ml 400 ml 700 ml Balance 900 ml 399 ml 952 ml -340 ml 647 ml Intake Oral 900 ml 320 ml 480 ml 60 ml 800 ml IV Total 479 ml 472 ml 547 ml Output Urine Total 400 ml 400 ml 700 ml # Voids 3 3 1 # Bowel Movements 3 0 0 Laboratory Tests Test 12/21/16 12/22/16 18:36 03:41 White Blood Count 15.4 TH/MM3 14.3 TH/MM3 Red Blood Count 4.91 MIL/MM3 5.01 MIL/MM3 Hemoglobin 12.5 GM/DL 12.7 GM/DL Hematocrit 38.1 % 39.0 % Mean Corpuscular Volume 77.7 FL 77.8 FL Mean Corpuscular Hemoglobin 25.4 PG 25.4 PG Mean Corpuscular Hemoglobin 32.7 % 32.6 % Concent Red Cell Distribution Width 16.2 % 16.6 % Platelet Count 515 TH/MM3 507 TH/MM3 Mean Platelet Volume 7.8 FL 8.0 FL Neutrophils (%) (Auto) 75.9 % 77.0 % Lymphocytes (%) (Auto) 11.5 % 10.4 % Monocytes (%) (Auto) 11.5 % 11.2 % Eosinophils (%) (Auto) 0.3 % 0.2 % Basophils (%) (Auto) 0.8 % 1.2 % Neutrophils # (Auto) 11.7 TH/MM3 11.0 TH/MM3 Lymphocytes # (Auto) 1.8 TH/MM3 1.5 TH/MM3 Monocytes # (Auto) 1.8 TH/MM3 1.6 TH/MM3 Eosinophils # (Auto) 0.0 TH/MM3 0.0 TH/MM3 Basophils # (Auto) 0.1 TH/MM3 0.2 TH/MM3 CBC Comment DIFF FINAL DIFF FINAL Differential Comment Sodium Level 138 MEQ/L 137 MEQ/L Potassium Level 3.3 MEQ/L 3.6 MEQ/L Chloride Level 101 MEQ/L 103 MEQ/L Carbon Dioxide Level 25.3 MEQ/L 25.0 MEQ/L Anion Gap 12 MEQ/L 9 MEQ/L Blood Urea Nitrogen 28 MG/DL 28 MG/DL Creatinine 1.42 MG/DL 1.42 MG/DL Estimat Glomerular Filtration 50 ML/MIN 50 ML/MIN Rate Random Glucose 112 MG/DL 99 MG/DL Lactic Acid Level 1.0 mmol/L Calcium Level 9.6 MG/DL 9.7 MG/DL Total Bilirubin 0.5 MG/DL 0.5 MG/DL Direct Bilirubin 0.2 MG/DL Indirect Bilirubin 0.3 MG/DL Aspartate Amino Transf 23 U/L 25 U/L (AST/SGOT) Alanine Aminotransferase 14 U/L 13 U/L (ALT/SGPT) Alkaline Phosphatase 103 U/L 96 U/L Ammonia LESS THAN 10 MCMOL/L Total Protein 8.1 GM/DL 8.2 GM/DL Albumin 3.0 GM/DL 3.1 GM/DL Constitutional Vital Signs Date Time Temp Pulse Resp B/P Pulse Ox O2 Delivery O2 Flow Rate FiO2 12/24/16 10:30 22 12/24/16 10:00 69 12/24/16 10:00 69 135/72 12/24/16 08:33 22 12/24/16 08:00 98.4 65 16 175/94 95 12/24/16 08:00 74 12/24/16 07:00 97 Room Air 21 12/24/16 06:00 74 12/24/16 04:00 68 12/24/16 04:00 98.3 68 24 131/70 95 12/24/16 02:00 71 12/24/16 00:00 63 12/24/16 00:00 98.0 63 28 153/79 95 12/23/16 22:00 72 12/23/16 20:00 97 Room Air 12/23/16 20:00 72 12/23/16 20:00 98.0 72 22 177/82 97 12/23/16 18:00 80 12/23/16 16:00 69 12/23/16 16:00 98.7 69 22 170/77 97 12/23/16 14:00 68 12/23/16 12:00 97.6 64 26 159/95 95 12/23/16 12:00 68 12/24/16 07:00 Intake Total 1407 ml Output Total 1100 ml Balance 307 ml (Mesfin Elaine) Review of Systems/Exam ROS Constitutional: Denies any fever or sweats. Neuro: Denies any headache, dizziness, numbness or tingling. Resp: Denies any shortness of breath or productive cough. Cardiac: Denies any chest pain, palpitations or irregular heart beat. GI: Denies any abdominal pain, nausea, vomiting or bowel incontinence. : Denies any bladder incontinence. Back: Lower back pain after he woke up. Extremities: Denies any weakness or pain to the arms or legs. Exam Constitutional: NAD, pleasant, still responds slowly to questions. HEENT: Normocephalic, atraumatic. Resp: CTAB w/o W/R/R, equal excursion, non-laboured, on RA. CV: S1S2 w/RRR w/o M/G/R, cap refill < 2 sec, radial & pedal pulses 2+ bilaterally, no pedal edema. Monitor is sinus rhythm w/o ectopy when seen. GI: Abdomen soft, nontender, positive bowel sounds, no palpable masses or organomegaly. Extremities: Extremities normal, NTTP, no evident discolouration, deformity or clubbing. Back: TTP across lower back laterally. Pain when lifts left lower leg. Neuro: AAOx3. Speech clear but with slow thought process. Follows commands. Motor strength 5/5 to all major flexion & extension muscle groups. Sensation grossly intact to light touch all extremities. (Mesfin Elaine) Medications Current Medications Current Medications Medications (Trade) Dose Ordered Sig/Gene Route Start Time Stop Time Status Last Admin (Xanax) 1 mg Q6H PRN PO 12/17/16 17:45 12/23/16 03:07 (Zoloft) 100 mg DAILY PO 12/18/16 09:00 12/24/16 09:29 (Oramorph Sr) 15 mg BID PO 12/18/16 09:00 12/24/16 09:30 Famotidine 20 mg 20 mg DAILY PO 12/18/16 09:00 12/24/16 09:30 (NS 1000 ml Inj) 1,000 ml @ 42 mls/hr [id number] IV 12/17/16 17:34 12/23/16 17:28 (NS Flush) 2 ml UNSCH PRN IV FLUSH 12/17/16 17:45 12/23/16 17:43 (NS Flush) 2 ml BID IV FLUSH 12/17/16 21:00 12/24/16 09:30 (Tylenol) 650 mg Q4H PRN PO 12/17/16 17:45 12/22/16 08:39 (Zofran Inj) 4 mg Q6H PRN IVP 12/17/16 17:45 (Colace) 100 mg Q12H PO 12/17/16 17:45 12/24/16 06:29 (Milk Of Kacey Liq) 30 ml Q12H PRN PO 12/17/16 17:45 (Tylenol) 650 mg Q6H PRN PO 12/17/16 17:45 (Roxicodone) 10 mg Q4H PRN PO 12/17/16 17:45 12/24/16 07:33 (Roxicodone) 5 mg Q4H PRN PO 12/17/16 17:45 12/22/16 03:17 (Narcan Inj) 0.4 mg UNSCH PRN IV 12/17/16 17:45 (Catapres) 0.1 mg Q6H PRN PO 12/17/16 17:45 12/24/16 07:33 (KCl) 20 meq Q12HR PO 12/20/16 12:00 12/24/16 09:29 (Apresoline Inj) 10 mg Q6HR PRN IV PUSH 12/20/16 14:45 12/23/16 17:43 (Lopressor) 50 mg BID PO 12/22/16 21:00 12/24/16 09:29 (SEROquel) 25 mg BID PO 12/22/16 23:15 12/24/16 09:29 (Haldol Inj) 2 mg Q6H PRN IM 12/22/16 23:15 (Cardizem) 60 mg Q6HR PO 12/24/16 00:00 12/24/16 06:29 (Mesfin Elaine) Medical Decision Making MDM Remarks Impression: L2-3 discitis-osteomyelitis with mostly moderate canal stenosis. The degree of stenosis does not appear to be sufficient to cause cauda equina syndrome or significant nerve compression. There is some enhancement of the bilateral L4 nerve root extending into the thecal sac with probable nerve inflammation. Staphylococcus epidermidis in 1 blood culture from 12/17 (questionable contaminant), no growth from those on 12/18 (final). Pain controlled at present. Neurologically stable at this time Hypertension Hypokalemia, resolved Atrial fibrillation, per Nursing he is in & out of atrial fib Significant white matter disease on MRI brain (Mesfin Elaine) Plan Plan Remarks Discussed plan of care with patient & , no questions asked Abx per ID following biopsy, plan was to start vanco after biospy Continue to mobilize cautiously with physical therapy LSO brace Okay to transfer to regular med/surg floor from NSGY's perspective (Mesfin Elaine) Attending Statement I have personally seen and examined the patient on the date of this note. Pertinent documentation and study results have been reviewed by the undersigned. I have personally developed the treatment plan and performed medical decision making. Agree with findings, exam, and treatment plan as noted above. Patient's lower extremity neurologic sensory motor function remains normal. There is persistent low back and groin, and upper thigh pain. 12/23/16 CT biopsy lumbar spine Gram stain and cultures negative so far. Discussed with patient and his family. Continue to mobilize out of bed as tolerated. Advised that it may take 2-3 months for the areas of lumbar discitis- osteomyelitis to adequately heal. He may still require surgical intervention if a significant instability or nerve compression develops. (Pravin Powell MD) Mesfin Elaine December 24, 2016 10:46 Pravin Powell MD December 24, 2016 18:07
[2016-12-24] MEDS ORDERED: Vancomycin Consult Pharmacy 1 EA OTHER SCH (12:15)
--- NOTE | 2016-12-24 12:18 | HHI.IDPN ---
Subjective Subjective Remarks Notes reviewed Patient had aspiration of L2L3 yesterday G/S no WBC, no organism seen, C/S pending Awake, C/O pain, slightly better with pain meds Voiding ok No N/V Temps ok BP better One (+) BC with Staph epi No new (+) BC Antibiotics None Lines PIV Past Medical History Hypertension Anxiety/depression/PTSD GERD Hepatitis C Osteoarthritis with chronic pain Discitis/osteomyelitis of the lumbar spine Past Surgical History Cholecystectomy Bilateral knee replacement Tonsils and adenoids Allergies: Coded Allergies: Toradol (Unverified Allergy, Severe, RASH, 12/17/16) Objective . Vital Signs Date Time Temp Pulse Resp B/P Pulse Ox O2 Delivery O2 Flow Rate FiO2 12/24/16 10:30 22 12/24/16 10:00 69 12/24/16 10:00 69 135/72 12/24/16 08:33 22 12/24/16 08:00 98.4 65 16 175/94 95 12/24/16 08:00 74 12/24/16 07:00 97 Room Air 21 12/24/16 06:00 74 12/24/16 04:00 68 12/24/16 04:00 98.3 68 24 131/70 95 12/24/16 02:00 71 12/24/16 00:00 63 12/24/16 00:00 98.0 63 28 153/79 95 12/23/16 22:00 72 12/23/16 20:00 97 Room Air 12/23/16 20:00 72 12/23/16 20:00 98.0 72 22 177/82 97 12/23/16 18:00 80 12/23/16 16:00 69 12/23/16 16:00 98.7 69 22 170/77 97 12/23/16 14:00 68 12/23/16 12/23/16 12/24/16 15:00 23:00 07:00 Intake Total 60 ml 574 ml 773 ml Output Total 400 ml 700 ml Balance -340 ml 574 ml 73 ml Intake Oral 60 ml 400 ml 400 ml IV Total 174 ml 373 ml Output Urine Total 400 ml 700 ml # Voids 1 # Bowel Movements 0 0 . Microbiology Date/Time Procedure Status Source Growth 12/23/16 15:05 Cancelled Fluid Other 12/23/16 15:05 Cancelled Fluid Other 12/23/16 15:05 Cancelled Fluid Other 12/23/16 15:05 Acid Fast Stain Received Tissue Other Pending 12/23/16 15:05 Mycobacterial Culture Received Tissue Other Pending 12/23/16 15:05 Cancelled Tissue Lung 12/23/16 15:05 Gram Stain - Final Resulted Tissue Other 12/23/16 15:05 Wound Culture Resulted Tissue Other Pending 12/23/16 15:05 Fungal Smear - Final Resulted Tissue Other NO FUNGAL ELEMENTS SEEN. 12/23/16 15:05 Fungal Culture Resulted Tissue Other Pending Physical Exam GENERAL: awake and alert, NAD SKIN: Cool and moist. No generalized rash HEENT: [place] conjunctivae. No scleral icterus. No injection or drainage. Moist oral mucosa. NECK: Supple, nontender, no meningeal signs. CARDIOVASCULAR: Regular rate and rhythm without gallops, or rubs. ?soft murmur at base of the heart RESPIRATORY: Clear to auscultation. Breath sounds equal bilaterally. No wheezes , rales, or rhonchi. GASTROINTESTINAL: Abdomen soft, non-tender, nondistended. No hepato-splenomegaly , or palpable masses. No guarding. No rebound. Bowel sounds are present and normoactive. MUSCULOSKELETAL: Extremities without clubbing, cyanosis, or edema. No calf tenderness. He has scars in both knees compatible with his surgical history. Has no pain in movement of his knee joints or hip joints. NEUROLOGICAL: Non-focal PSYCH: Normal affect, calm and cooperative. LINE: PIV with no evidence of infection Assessment & Plan Remarks IMPRESSION L2-L3 discitis, osteomyelitis, S/P Rx with IV Rocephin - initial C/S neg, but G/S with rare GNR - worse clinically - repeat scan, findings ?same as previous MRI One (+) BC with Staph epi, ?real or contaminant RECOMMENDATION Follow C/S Start IV Vanco - Staph and Strep most common pathogen but his first specimen has GNR on G/S Will also start Cefepime for GNR coverage Monitor progress Will determine course of Rx once C/S finalized Audrey Flores MD December 24, 2016 12:18
[2016-12-24] MEDS: CEFEPIME INJ 2,000 MG in SODIUM CHLORIDE 0.9% INJ 100 ML IV SCH (12:28)
[2016-12-24] MEDS ORDERED: VANCOMYCIN INJ 1,750 MG in SODIUM CHLORID 0.9% 500 ML INJ 500 ML IV SCH (13:00)
[2016-12-24] MEDS: HALOPERIDOL LACTATE 5 MG/ML AMP IM PRN (16:16)
[2016-12-24] MEDS: SODIUM CHLOR 0.9% 1000 ML INJ 1,000 ML IV SCH (17:17)
--- NOTE | 2016-12-24 17:27 | HHI.PR ---
Subjective Remarks Follow up for discitis, osteomyelitis. Patient is doing well. No acute concerns. Denies any fever, chills. Objective Vitals Vital Signs Date Time Temp Pulse Resp B/P Pulse Ox O2 Delivery O2 Flow Rate FiO2 12/24/16 16:00 98.7 66 28 161/77 98 12/24/16 16:00 60 12/24/16 14:00 66 12/24/16 13:28 28 12/24/16 12:00 98.6 56 23 158/70 99 12/24/16 12:00 65 12/24/16 10:30 22 12/24/16 10:00 69 12/24/16 10:00 69 135/72 12/24/16 08:00 98.4 65 16 175/94 95 12/24/16 08:00 74 12/24/16 07:00 97 Room Air 21 12/24/16 06:00 74 12/24/16 04:00 68 12/24/16 04:00 98.3 68 24 131/70 95 12/24/16 02:00 71 12/24/16 00:00 63 12/24/16 00:00 98.0 63 28 153/79 95 12/23/16 22:00 72 12/23/16 20:00 97 Room Air 12/23/16 20:00 72 12/23/16 20:00 98.0 72 22 177/82 97 12/23/16 18:00 80 I/O 12/23/16 12/23/16 12/23/16 12/24/16 12/24/16 12/24/16 07:00 15:00 23:00 07:00 15:00 23:00 Intake Total 490 ml 60 ml 574 ml 773 ml 707 ml Output Total 400 ml 700 ml 600 ml Balance 490 ml -340 ml 574 ml 73 ml 107 ml Intake Oral 240 ml 60 ml 400 ml 400 ml 600 ml IV Total 250 ml 174 ml 373 ml 107 ml Output Urine Total 400 ml 700 ml 600 ml # Voids 2 1 # Bowel Movements 0 0 0 0 Result Diagram: 12/22/16 0341 12/22/16 0341 Imaging Last Impressions Needle Biopsy/Aspiration X-Ray 12/23/16 0000 Signed Impressions: Service Date/Time: Friday, December 23, 2016 14:54 - CONCLUSION: Uncomplicated needle aspiration of the L2-L3 disc space as above. Octavio Bernstein Jr., MD Brain MRI 12/23/16 0000 Signed Impressions: Service Date/Time: Friday, December 23, 2016 13:48 - CONCLUSION: Significant white matter disease. Jeronimo Guillaume MD Head CT 12/20/16 0000 Signed Impressions: Service Date/Time: Wednesday, December 21, 2016 04:41 - CONCLUSION: Negative noncontrast head CT. Jeronimo Ayers MD Objective Remarks GENERAL: Alert, NAD. SKIN: Warm and dry. HEAD: Normocephalic. EYES: No scleral icterus. No injection or drainage. NECK: Supple, trachea midline. No JVD or lymphadenopathy. CARDIOVASCULAR: Regular rate and rhythm without murmurs, gallops, or rubs. RESPIRATORY: Breath sounds equal bilaterally. No accessory muscle use. GASTROINTESTINAL: Abdomen soft, non-tender, nondistended. MUSCULOSKELETAL: No cyanosis, or edema. BACK: Nontender without obvious deformity. No CVA tenderness. Procedures L2-L3 disc aspiration by IR on 12/23/2016. A/P Assessment and Plan 61-year-old male with past medical history of discitis/osteomyelitis, HTN, PTSD , hep C, GERD, OA, chronic pain who presented with worsening lower back pain found to have likely chronic discitis. - L2-L3 discitis - osteomyelitis with moderate canal stenosis. - Neurosurgery following - do not think stenosis is significant enough to cause Cauda Equina syndrome. - ID is following. Patient is currently on IV vancomycin and IV Cefepime. - Neurosurgery is okay with patient going to the floor. Will transfer to the floor today. - Atrial fibrillation - Continue Cardizem 60mg PO Q6hrs, Metoprolol 50mg BID. - [id number] score is likely 1 (HTN). May benefit from aspirin 75mg Qday. - Acute kidney injury - Creatinine improved from 2.60 --> 1.42 - Hypertension - Will start patient on Amlodipine 5mg Qday - Continue Cardizem, Metoprolol for rate control. - Agitation/Hallucination - Continue Seroquel 25mg BID. Full code. SCDs. If okay with neurosurgery, we will start Heparin SQ. Rochelle Coleman DO December 24, 2016 17:27
--- NOTE | 2016-12-24 18:01 | PD.CARD.PN ---
Subjective Subjective Remarks No CP or SOB, still confused, no c/o Objective Medications Current Medications Medications (Trade) Dose Ordered Sig/Gene Route Start Time Stop Time Status Last Admin (Xanax) 1 mg Q6H PRN PO 12/17/16 17:45 12/23/16 03:07 (Zoloft) 100 mg DAILY PO 12/18/16 09:00 12/24/16 09:29 (Oramorph Sr) 15 mg BID PO 12/18/16 09:00 12/24/16 09:30 Famotidine 20 mg 20 mg DAILY PO 12/18/16 09:00 12/24/16 09:30 (NS 1000 ml Inj) 1,000 ml @ 42 mls/hr [id number] IV 12/17/16 17:34 12/23/16 17:28 (NS Flush) 2 ml UNSCH PRN IV FLUSH 12/17/16 17:45 12/23/16 17:43 (NS Flush) 2 ml BID IV FLUSH 12/17/16 21:00 12/24/16 09:30 (Tylenol) 650 mg Q4H PRN PO 12/17/16 17:45 12/22/16 08:39 (Zofran Inj) 4 mg Q6H PRN IVP 12/17/16 17:45 (Colace) 100 mg Q12H PO 12/17/16 17:45 12/24/16 06:29 (Milk Of Magnesia Liq) 30 ml Q12H PRN PO 12/17/16 17:45 (Tylenol) 650 mg Q6H PRN PO 12/17/16 17:45 (Roxicodone) 10 mg Q4H PRN PO 12/17/16 17:45 12/24/16 12:28 (Roxicodone) 5 mg Q4H PRN PO 12/17/16 17:45 12/24/16 16:16 (Narcan Inj) 0.4 mg UNSCH PRN IV 12/17/16 17:45 (Catapres) 0.1 mg Q6H PRN PO 12/17/16 17:45 12/24/16 07:33 (KCl) 20 meq Q12HR PO 12/20/16 12:00 12/24/16 09:29 (Apresoline Inj) 10 mg Q6HR PRN IV PUSH 12/20/16 14:45 12/23/16 17:43 (Lopressor) 50 mg BID PO 12/22/16 21:00 12/24/16 09:29 (SEROquel) 25 mg BID PO 12/22/16 23:15 12/24/16 09:29 (Haldol Inj) 2 mg Q6H PRN IM 12/22/16 23:15 12/24/16 16:16 Diltiazem HCl 60 mg 60 mg Q6HR PO 12/24/16 00:00 12/24/16 11:16 Vancomycin HCl 1750 mg/Sodium Chloride 517.5 ml @ 257.5 mls/ hr Q24H IV 12/24/16 13:00 12/24/16 14:29 Pharmacy Profile Note 0 ml @ 0 mls/hr UNSCH OTHER 12/24/16 12:15 (Maxipime Inj/NS Inj) 100 ml @ 200 mls/hr Q12H IV 12/24/16 13:00 12/24/16 12:28 Miscellaneous Information SPECIFIC LAB TO BE ARY... ONCE ONCE .XX 12/27/16 12:45 12/27/16 12:46 Vital Signs / I&O Vital Signs Date Time Temp Pulse Resp B/P Pulse Ox O2 Delivery O2 Flow Rate FiO2 12/24/16 16:00 98.7 66 28 161/77 98 12/24/16 16:00 60 12/24/16 14:00 66 12/24/16 13:28 28 12/24/16 12:00 98.6 56 23 158/70 99 12/24/16 12:00 65 12/24/16 10:30 22 12/24/16 10:00 69 12/24/16 10:00 69 135/72 12/24/16 08:00 98.4 65 16 175/94 95 12/24/16 08:00 74 12/24/16 07:00 97 Room Air 21 12/24/16 06:00 74 12/24/16 04:00 68 12/24/16 04:00 98.3 68 24 131/70 95 12/24/16 02:00 71 12/24/16 00:00 63 12/24/16 00:00 98.0 63 28 153/79 95 12/23/16 22:00 72 12/23/16 20:00 97 Room Air 12/23/16 20:00 72 12/23/16 20:00 98.0 72 22 177/82 97 12/23/16 18:00 80 I/O 12/23/16 12/23/16 12/23/16 12/24/16 12/24/16 12/24/16 07:00 15:00 23:00 07:00 15:00 23:00 Intake Total 490 ml 60 ml 574 ml 773 ml 707 ml Output Total 400 ml 700 ml 600 ml Balance 490 ml -340 ml 574 ml 73 ml 107 ml Intake Oral 240 ml 60 ml 400 ml 400 ml 600 ml IV Total 250 ml 174 ml 373 ml 107 ml Output Urine Total 400 ml 700 ml 600 ml # Voids 2 1 # Bowel Movements 0 0 0 0 Physical Exam GENERAL: Confused, in soft restraints SKIN: Warm and dry. HEAD: Normocephalic. EYES: No scleral icterus. No injection or drainage. NECK: Supple, trachea midline. No JVD or lymphadenopathy. CARDIOVASCULAR: Regular rate and rhythm without murmurs, gallops, or rubs. RESPIRATORY: Breath sounds equal bilaterally. No accessory muscle use. GASTROINTESTINAL: Abdomen soft, non-tender, nondistended. MUSCULOSKELETAL: No cyanosis, or edema. Laboratory Laboratory Tests Test 12/21/16 12/21/16 12/22/16 03:56 18:36 03:41 Magnesium Level 2.2 MG/DL Lactic Acid Level 1.0 mmol/L Direct Bilirubin 0.2 MG/DL Indirect Bilirubin 0.3 MG/DL Ammonia LESS THAN 10 MCMOL/L White Blood Count 14.3 TH/MM3 Red Blood Count 5.01 MIL/MM3 Hemoglobin 12.7 GM/DL Hematocrit 39.0 % Mean Corpuscular Volume 77.8 FL Mean Corpuscular Hemoglobin 25.4 PG Mean Corpuscular Hemoglobin 32.6 % Concent Red Cell Distribution Width 16.6 % Platelet Count 507 TH/MM3 Mean Platelet Volume 8.0 FL Neutrophils (%) (Auto) 77.0 % Lymphocytes (%) (Auto) 10.4 % Monocytes (%) (Auto) 11.2 % Eosinophils (%) (Auto) 0.2 % Basophils (%) (Auto) 1.2 % Neutrophils # (Auto) 11.0 TH/MM3 Lymphocytes # (Auto) 1.5 TH/MM3 Monocytes # (Auto) 1.6 TH/MM3 Eosinophils # (Auto) 0.0 TH/MM3 Basophils # (Auto) 0.2 TH/MM3 CBC Comment DIFF FINAL Differential Comment Sodium Level 137 MEQ/L Potassium Level 3.6 MEQ/L Chloride Level 103 MEQ/L Carbon Dioxide Level 25.0 MEQ/L Anion Gap 9 MEQ/L Blood Urea Nitrogen 28 MG/DL Creatinine 1.42 MG/DL Estimat Glomerular Filtration 50 ML/MIN Rate Random Glucose 99 MG/DL Calcium Level 9.7 MG/DL Total Bilirubin 0.5 MG/DL Aspartate Amino Transf 25 U/L (AST/SGOT) Alanine Aminotransferase 13 U/L (ALT/SGPT) Alkaline Phosphatase 96 U/L Total Protein 8.2 GM/DL Albumin 3.1 GM/DL Imaging Last Impressions Needle Biopsy/Aspiration X-Ray 12/23/16 0000 Signed Impressions: Service Date/Time: Friday, December 23, 2016 14:54 - CONCLUSION: Uncomplicated needle aspiration of the L2-L3 disc space as above. Octavio Bernstein Jr., MD Brain MRI 12/23/16 0000 Signed Impressions: Service Date/Time: Friday, December 23, 2016 13:48 - CONCLUSION: Significant white matter disease. Jeronimo Guillaume MD Head CT 12/20/16 0000 Signed Impressions: Service Date/Time: Wednesday, December 21, 2016 04:41 - CONCLUSION: Negative noncontrast head CT. Jeronimo Ayers MD Assessment and Plan Problem List: (1) Paroxysmal atrial fibrillation (2) Encephalopathy (3) Discitis of lumbar region (4) SIRS (systemic inflammatory response syndrome) (5) Osteomyelitis of lumbar spine (6) Hypertension Assessment and Plan Still confused. Stays in SR. Continue and titrate antihypertensive tx. Eval and tx for discitis/osteomyelitis. Stable from cardiac standpoint. Increase activity. Debra Ramon MD December 24, 2016 18:01
[2016-12-24] MEDS: hydrALAZINE HCL 20 MG/ML VIAL IV PUSH PRN (18:28)
[2016-12-24] MEDS: ALPRAZolam 1 MG TAB PO PRN ×2 (18:53→22:18)
--- NOTE | 2016-12-24 21:02 | MB ---
cc: SHANE QUIGLEY Corrected Copy: 12/26/16 DATE OF CONSULTATION 12/20/2016. HISTORY OF PRESENT ILLNESS Mr. Healy is a 61 year old white male with a history of diskitis, osteomyelitis. He presented with low back pain and was admitted on 12/17. He has had severe hypertension and also developed atrial fibrillation with rapid ventricular response. He was also diagnosed with encephalopathy. PAST MEDICAL HISTORY 1. Hypertension 2. Post traumatic stress disorder 3. Anxiety/depression 4. Gastroesophageal reflux disease 5. Hepatitis C 6. Osteoarthritis 7. Chronic pain 8. Diskitis 9. Osteomyelitis of the lumbar spine 10. History of cholecystectomy 11. Bilateral knee replacement 12. Tonsillectomy and adenoidectomy MEDICATIONS At home, 1. Xanax 2. Cardura 3. Zantac 4. Verapamil 5. Clonidine 6. Naprosyn 7. Lisinopril 8. Hydrochlorothiazide 9. Morphine ALLERGIES TORADOL. SOCIAL HISTORY The patient is a smoker. He quit drinking 20 years ago. He has a previous history of IV drug use. FAMILY HISTORY Positive for stroke in his mother. Negative for coronary artery disease. REVIEW OF SYSTEMS Otherwise negative. PHYSICAL EXAMINATION VITAL SIGNS: Blood pressure 110/57. Pulse 140 and irregular. HEENT: Negative. 2+ carotid upstroke. No bruits. LUNGS: Clear. HEART: Irregularly irregular with no murmur, gallop or rub. ABDOMEN: Soft. No bruits. EXTREMITIES: Without edema. 2+ distal pulses. NEUROLOGICAL: Grossly nonfocal. The patient is confused. ASSESSMENT 1. Paroxysmal atrial fibrillation with rapid ventricular response. 2. Hypertension. 3. Encephalopathy. 4. Acute renal insufficiency. 5. Anxiety, depression. 6. Posttraumatic stress disorder. DISPOSITION Mr. Healy will be monitored on telemetry. We will continue medications for rate control of his atrial fibrillation. We will also continue therapy for hypertension. He will be monitored on telemetry. He is undergoing neurological and neurosurgical evaluation for his discitis and osteomyelitis. I will follow him for cardiology during his hospitalization. MD MEGHANA Lewis/BIENVENIDO /6:13 PM /9:32 AM [facility] CENTERLorenzo
[2016-12-25] VITALS (9 sets, daily range): BP systolic 139–196; BP diastolic 68–90; PULSE 62–74; RESP 18–24; TEMP 97.3–99.7; O2SAT 93–98
[2016-12-25] MEDS: CEFEPIME INJ 2,000 MG in SODIUM CHLORIDE 0.9% INJ 100 ML IV SCH ×2 (00:58→16:00)
[2016-12-25 04:33] LABS: BASOPHIL # 0.1 TH/MM3 (0-0.2); BASOPHIL % 0.7 % (0.0-2.0); EOSINOPHIL # 0.2 TH/MM3 (0-0.4); EOSINOPHIL % 1.8 % (0.0-4.0); HEMATOCRIT 33.6 % (39.0-51.0); HEMO FLAGS DIFF FINAL; LYMPH % 13.4 % (9.0-44.0); LYMPHOCYTE # 1.3 TH/MM3 (1.0-4.8); MEAN CELL VOLUME 77.5 FL (80.0-100.0); MEAN CORPUSCULAR HEMOGLOBIN 25.7 PG (27.0-34.0); MEAN CORPUSCULAR HGB CONC 33.2 % (32.0-36.0); NEUT % 71.1 % (16.0-70.0); PLATELET COUNT 456 TH/MM3 (150-450); RED BLOOD COUNT 4.33 MIL/MM3 (4.50-5.90); RED CELL DISTRIBUTION WIDTH 16.4 % (11.6-17.2); WHITE BLOOD COUNT 9.9 TH/MM3 (4.0-11.0)
[2016-12-25 05:05] LABS: BICARBONATE 23.8 MEQ/L (21.0-32.0); POTASSIUM 3.8 MEQ/L (3.5-5.1)
[2016-12-25] MEDS: DOCUSATE SODIUM 100 MG CAP PO SCH ×2 (05:45→18:21)
[2016-12-25] MEDS: DILTIAZEM HCL 30 MG TAB PO SCH ×3 (06:36→18:21)
[2016-12-25] MEDS: SERTRALINE HCL 100 MG TAB PO SCH (09:01)
[2016-12-25] MEDS: POTASSIUM CHLORIDE 20 MEQ CONTROLLED RELEASE TAB PO SCH ×2 (09:01→21:15)
[2016-12-25] MEDS: METOPROLOL TARTRATE 50 MG TAB PO SCH ×2 (09:01→21:15)
[2016-12-25] MEDS: SODIUM CHLORIDE 0.9% FLUSH 10 ML FLUSH IV FLUSH SCH ×2 (09:01→21:16)
[2016-12-25] MEDS: FAMOTIDINE 20 MG TAB PO SCH (09:01)
[2016-12-25] MEDS: QUEtiapine FUMARATE 25 MG TAB PO SCH ×2 (09:02→21:15)
[2016-12-25] MEDS: amLODIPine BESYLATE 5 MG TAB PO SCH (09:02)
[2016-12-25] MEDS: MORPHINE SULFATE 15 MG CONTROLLED RELEASE TAB PO SCH ×2 (09:03→21:15)
--- NOTE | 2016-12-25 11:38 | HHI.PR ---
Subjective Remarks Follow up for discitis, osteomyelitis. Mr. Healy is doing well. No acute concerns. No fever, chills. Later on RN reports that patient occasionally is confused and his is concerned as well. At the time of this interview, patient answers questions appropriately. Objective Vitals Vital Signs Date Time Temp Pulse Resp B/P Pulse Ox O2 Delivery O2 Flow Rate FiO2 12/25/16 08:37 18 12/25/16 08:36 98.1 73 18 162/88 97 12/25/16 04:00 97.9 63 23 139/74 93 12/25/16 04:00 63 12/25/16 02:00 62 12/25/16 00:00 97.9 71 24 157/77 94 12/25/16 00:00 71 12/24/16 22:00 68 12/24/16 21:14 24 12/24/16 20:00 97.8 67 20 150/67 98 12/24/16 20:00 67 12/24/16 19:00 95 Room Air 21 12/24/16 18:00 68 12/24/16 17:16 30 12/24/16 16:00 98.7 66 28 161/77 98 12/24/16 16:00 60 12/24/16 14:00 66 12/24/16 12:00 98.6 56 23 158/70 99 12/24/16 12:00 65 I/O 12/24/16 12/24/16 12/24/16 12/25/16 12/25/16 12/25/16 07:00 15:00 23:00 07:00 15:00 23:00 Intake Total 773 ml 707 ml 1036 ml 120 ml Output Total 700 ml 600 ml 450 ml 275 ml Balance 73 ml 107 ml 586 ml -155 ml Intake Oral 400 ml 600 ml 360 ml 120 ml IV Total 373 ml 107 ml 676 ml Output Urine Total 700 ml 600 ml 450 ml 275 ml # Bowel Movements 0 0 0 0 Result Diagram: 12/25/1634112/25/16341 Objective Remarks GENERAL: Alert, NAD. SKIN: Warm and dry. HEAD: Normocephalic. EYES: No scleral icterus. No injection or drainage. NECK: Supple, trachea midline. No JVD or lymphadenopathy. CARDIOVASCULAR: Regular rate and rhythm without murmurs, gallops, or rubs. RESPIRATORY: Breath sounds equal bilaterally. No accessory muscle use. GASTROINTESTINAL: Abdomen soft, non-tender, nondistended. MUSCULOSKELETAL: No cyanosis, or edema. BACK: Nontender without obvious deformity. No CVA tenderness. Procedures L2-L3 disc aspiration by IR on 12/23/2016. A/P Assessment and Plan 61-year-old male with past medical history of discitis/osteomyelitis, HTN, PTSD , hep C, GERD, OA, chronic pain who presented with worsening lower back pain found to have likely chronic discitis. - L2-L3 discitis - osteomyelitis with moderate canal stenosis. - Neurosurgery following - do not think stenosis is significant enough to cause Cauda Equina syndrome. - ID is following. Patient is currently on IV vancomycin and IV Cefepime. - CT abd/pelvis ordered by ID - Atrial fibrillation - Continue Cardizem 60mg PO Q6hrs, Metoprolol 50mg BID. - [id number] score is likely 1 (HTN). May benefit from aspirin 75mg Qday. - Acute kidney injury - Creatinine improved from 2.60 --> 1.42 --> 1.13. - Hypertension - Will start patient on Amlodipine 5mg Qday - Continue Cardizem, Metoprolol for rate control. - Agitation/Hallucination - Continue Seroquel 25mg BID. Full code. SCDRochelle Roger DO December 25, 2016 11:38
--- NOTE | 2016-12-25 13:03 | HHI.IDPN ---
Subjective Subjective Remarks Notes reviewed No fever Pain same C/S from aspirate L2L3 negative so far Voiding ok No diarrhea No N/V One (+) BC with Staph epi No new (+) BC Antibiotics Vancomycin Cefepime Lines PIV Past Medical History Hypertension Anxiety/depression/PTSD GERD Hepatitis C Osteoarthritis with chronic pain Discitis/osteomyelitis of the lumbar spine Past Surgical History Cholecystectomy Bilateral knee replacement Tonsils and adenoids Allergies: Coded Allergies: Toradol (Unverified Allergy, Severe, RASH, 12/17/16) Objective . Vital Signs Date Time Temp Pulse Resp B/P Pulse Ox O2 Delivery O2 Flow Rate FiO2 12/25/16 12:32 97.3 64 18 154/75 98 12/25/16 08:37 18 12/25/16 08:36 98.1 73 18 162/88 97 12/25/16 04:00 97.9 63 23 139/74 93 12/25/16 04:00 63 12/25/16 02:00 62 12/25/16 00:00 97.9 71 24 157/77 94 12/25/16 00:00 71 12/24/16 22:00 68 12/24/16 21:14 24 12/24/16 20:00 97.8 67 20 150/67 98 12/24/16 20:00 67 12/24/16 19:00 95 Room Air 21 12/24/16 18:00 68 12/24/16 17:16 30 12/24/16 16:00 98.7 66 28 161/77 98 12/24/16 16:00 60 12/24/16 14:00 66 12/24/16 12/24/16 12/25/16 15:00 23:00 07:00 Intake Total 707 ml 1036 ml 120 ml Output Total 600 ml 450 ml 275 ml Balance 107 ml 586 ml -155 ml Intake Oral 600 ml 360 ml 120 ml IV Total 107 ml 676 ml Output Urine Total 600 ml 450 ml 275 ml # Bowel Movements 0 0 0 . Laboratory Tests Test 12/25/16 03:42 White Blood Count 9.9 TH/MM3 Red Blood Count 4.33 MIL/MM3 Hemoglobin 11.2 GM/DL Hematocrit 33.6 % Mean Corpuscular Volume 77.5 FL Mean Corpuscular Hemoglobin 25.7 PG Mean Corpuscular Hemoglobin 33.2 % Concent Red Cell Distribution Width 16.4 % Platelet Count 456 TH/MM3 Mean Platelet Volume 8.3 FL Neutrophils (%) (Auto) 71.1 % Lymphocytes (%) (Auto) 13.4 % Monocytes (%) (Auto) 13.0 % Eosinophils (%) (Auto) 1.8 % Basophils (%) (Auto) 0.7 % Neutrophils # (Auto) 7.0 TH/MM3 Lymphocytes # (Auto) 1.3 TH/MM3 Monocytes # (Auto) 1.3 TH/MM3 Eosinophils # (Auto) 0.2 TH/MM3 Basophils # (Auto) 0.1 TH/MM3 CBC Comment DIFF FINAL Differential Comment Laboratory Tests Test 12/25/16 03:42 Sodium Level 139 MEQ/L Potassium Level 3.8 MEQ/L Chloride Level 106 MEQ/L Carbon Dioxide Level 23.8 MEQ/L Anion Gap 9 MEQ/L Blood Urea Nitrogen 27 MG/DL Creatinine 1.13 MG/DL Estimat Glomerular Filtration 66 ML/MIN Rate Random Glucose 88 MG/DL Calcium Level 9.0 MG/DL Microbiology Date/Time Procedure Status Source Growth 12/23/16 15:05 Cancelled Fluid Other 12/23/16 15:05 Cancelled Fluid Other 12/23/16 15:05 Cancelled Fluid Other 12/23/16 15:05 Acid Fast Stain Received Tissue Other Pending 12/23/16 15:05 Mycobacterial Culture Received Tissue Other Pending 12/23/16 15:05 Cancelled Tissue Lung 12/23/16 15:05 Gram Stain - Final Resulted Tissue Other 12/23/16 15:05 Wound Culture - Preliminary Resulted Tissue Other NO GROWTH IN 48 HOURS. 12/23/16 15:05 Fungal Smear - Final Resulted Tissue Other NO FUNGAL ELEMENTS SEEN. 12/23/16 15:05 Fungal Culture Resulted Tissue Other Pending Physical Exam GENERAL: awake and alert, NAD SKIN: Cool and moist. No generalized rash HEENT: [place] conjunctivae. No scleral icterus. Moist oral mucosa. NECK: Supple, nontender, no meningeal signs. CARDIOVASCULAR: Regular rate and rhythm without gallops, or rubs. ?soft murmur at base of the heart RESPIRATORY: Clear to auscultation. Breath sounds equal bilaterally. No wheezes , rales, or rhonchi. GASTROINTESTINAL: Abdomen soft, non-tender, nondistended. No hepato-splenomegaly , or palpable masses. No guarding. No rebound. Bowel sounds are present and normoactive. MUSCULOSKELETAL: Extremities without clubbing, cyanosis, or edema. No calf tenderness. He has scars in both knees compatible with his surgical history. Has no pain in movement of his knee joints or hip joints. NEUROLOGICAL: Non-focal PSYCH: Normal affect, calm and cooperative. LINE: PIV with no evidence of infection Assessment & Plan Remarks IMPRESSION L2-L3 discitis, osteomyelitis, S/P Rx with IV Rocephin x 8 weeks - initial C/S neg, but G/S with rare GNR - worse clinically - repeat scan, findings ?same as previous MRI One (+) BC with Staph epi, ?real or contaminant RECOMMENDATION Follow C/S Continue IV Vanco - Staph and Strep most common pathogen but his first specimen has GNR on G/S Continue Cefepime for GNR coverage CT A/P to look at psoas muscle and see if with organizing fluid Monitor progress If C/S negative, will D/W neurosurgery - ?retreat and longer Rx - or observation and repeat MRI as outpatient Pain control Explained plan to patient and Answered all the questions of Audrey Flores MD December 25, 2016 13:03
[2016-12-25] MEDS ORDERED: DIATRIZOATE MEGLUM/DIATRIZOATE SOD 9 ML CUP PO ONE (13:15)
[2016-12-25] MEDS: VANCOMYCIN INJ 1,750 MG in SODIUM CHLORID 0.9% 500 ML INJ 500 ML IV SCH (13:47)
--- NOTE | 2016-12-25 15:06 | PQ ---
Physician Query Response Document PATIENT: ROYA BENITES : 1955 ADMIT DATE: 12/17/2016 4:48 PM DISCH DATE: RESPONDING PROVIDER #: [facility] QUERY TEXT: Rule Out Sepsis Clarification Rule out Sepsis is documented in the Medical Record. Please clarify whether: -- Patient has sepsis - Please document confirmed, suspected or probable causative organism - Please document confirmed, suspected or probable localized infection - Please clarify if sepsis is related to a device - Please clarify if sepsis was present on admission -- Sepsis was ruled out (include corresponding diagnosis for patient?s clinical picture and treatment ) -- Patient had sepsis which is resolved -- Other, please specify The patient's Clinical Indicators include: vs on admission T 98,2, HR 80, RR 17, BP 98/57 wbc 14.9 LACTIC ACID 2.2 presented with worsening lower back pain Encephalopathy- confusion- multifactorial- likely from infection/sepsis/metabolic- KI Encephalopathy- confusion- multifactorial-- History of L2-L3 disciitis/OM- with modferate canal stenosis Query created by: Sarah Simpson on 12/24/2016 2:55 PM RESPONSE TEXT: Patient had sepsis (WBC 14.9, Resp rate 20 and higher in the subsequent days, Lactic acid 2.2 on admi ssion, suspected and later diagnosed infection of L2-L3 discitis, osteomyelitis). Electronically signed by: Fredy Coleman DO 12/25/2016 3:02 PM
--- NOTE | 2016-12-25 15:11 | HHI.NSPN ---
(Don Elaineterese LONDON) Note Status Status: Progress Note (Mesfin ElaineRaymond LONDON) Interval History Interval History 12/17: 61-year-old male who fell at his home in mid September with subsequent onset of progressive low back pain. He was admitted to [facility] towards the end of September and diagnosed with discitis-osteomyelitis and treated with 8 weeks of intravenous Rocephin which was completed approximately 10 days ago. He has continued to have progression of low back pain, and was seen by orthopedic surgery recently and sent for an MRI which was completed earlier today at [facility]. The study findings were reviewed by radiology and orthopedics, and the patient subsequently referred to the emergency room for admission and further evaluation. 12/18: Patient still with pain to the low back with radiation to the groins, numbness to groins persist. 12/19: Patient awake & alert. Still with low back pain and numbness to the groins. Fixated on not receiving his home medications. 12/20: Awake & alert. Pain still present to the low back with numbness still to the groins. Still some what slow in responding. at bedside and expresses concern that he wasn't treated properly for the infection at [facility]. Transferred to [facility] due to confusion, hypertension, hypokalemia & atrial fibrillation. 12/21: Neurologically stable. Remains with pain along bilateral groins. Waiting for CT-guided biopsy to guide antibiotic treatment. 12/22: Neurologically stable although continues with confusion. Head CT was done on unremarkable. Waiting for CT-guided biopsy to guide antibiotic treatment. 12/23: Still with back pain. Confusion appears improved, oriented x3. Sleeping but awoke to verbal. He is scheduled for a CT-guided biopsy at 1330 today. 12/24: Patient was able to sleep through the night. Low back pain started after he woke up. No numbness or tingling. He had his biopsy yesterday afternoon and also had an MRI brain which demonstrated significant white matter disease. 12/25: Patient has transferred from [facility]. He is doing well today. His only complaint is low back pain. The did state ID is to obtain a CT pelvis. (Mesfin Elaine Venancio LONDON) Labs, Micro, & Vital Signs Results Allergies Coded Allergies Type Severity Reaction Last Updated Verified Toradol Allergy Severe RASH 12/17/16 No Recent Impressions Needle Biopsy/Aspiration X-Ray 12/23/16 0000 Signed Impressions: Service Date/Time: Friday, December 23, 2016 14:54 - CONCLUSION: Uncomplicated needle aspiration of the L2-L3 disc space as above. Octavio Bernstein Jr., MD Brain MRI 12/23/16 0000 Signed Impressions: Service Date/Time: Friday, December 23, 2016 13:48 - CONCLUSION: Significant white matter disease. Jeronimo Guillaume MD // 06:00 18:00 06:00 18:00 06:00 18:00 Intake Total 952 ml 60 ml 1347 ml 707 ml 1036 ml 120 ml Output Total 400 ml 700 ml 600 ml 450 ml 375 ml Balance 952 ml -340 ml 647 ml 107 ml 586 ml -255 ml Intake Oral 480 ml 60 ml 800 ml 600 ml 360 ml 120 ml IV Total 472 ml 547 ml 107 ml 676 ml Output Urine Total 400 ml 700 ml 600 ml 450 ml 375 ml # Voids 3 1 # Bowel Movements 0 0 0 0 0 Laboratory Tests Test 12/25/16 03:42 White Blood Count 9.9 TH/MM3 Red Blood Count 4.33 MIL/MM3 Hemoglobin 11.2 GM/DL Hematocrit 33.6 % Mean Corpuscular Volume 77.5 FL Mean Corpuscular Hemoglobin 25.7 PG Mean Corpuscular Hemoglobin 33.2 % Concent Red Cell Distribution Width 16.4 % Platelet Count 456 TH/MM3 Mean Platelet Volume 8.3 FL Neutrophils (%) (Auto) 71.1 % Lymphocytes (%) (Auto) 13.4 % Monocytes (%) (Auto) 13.0 % Eosinophils (%) (Auto) 1.8 % Basophils (%) (Auto) 0.7 % Neutrophils # (Auto) 7.0 TH/MM3 Lymphocytes # (Auto) 1.3 TH/MM3 Monocytes # (Auto) 1.3 TH/MM3 Eosinophils # (Auto) 0.2 TH/MM3 Basophils # (Auto) 0.1 TH/MM3 CBC Comment DIFF FINAL Differential Comment Sodium Level 139 MEQ/L Potassium Level 3.8 MEQ/L Chloride Level 106 MEQ/L Carbon Dioxide Level 23.8 MEQ/L Anion Gap 9 MEQ/L Blood Urea Nitrogen 27 MG/DL Creatinine 1.13 MG/DL Estimat Glomerular Filtration 66 ML/MIN Rate Random Glucose 88 MG/DL Calcium Level 9.0 MG/DL Constitutional Vital Signs Date Time Temp Pulse Resp B/P Pulse Ox O2 Delivery O2 Flow Rate FiO2 12/25/16 12:32 97.3 64 18 154/75 98 12/25/16 08:37 18 12/25/16 08:36 98.1 73 18 162/88 97 12/25/16 04:00 97.9 63 23 139/74 93 12/25/16 04:00 63 12/25/16 02:00 62 12/25/16 00:00 97.9 71 24 157/77 94 12/25/16 00:00 71 12/24/16 22:00 68 12/24/16 21:14 24 12/24/16 20:00 97.8 67 20 150/67 98 12/24/16 20:00 67 12/24/16 19:00 95 Room Air 21 12/24/16 18:00 68 12/24/16 17:16 30 12/24/16 16:00 98.7 66 28 161/77 98 12/24/16 16:00 60 12/25/16 07:00 Intake Total 1863 ml Output Total 1325 ml Balance 538 ml (Mesfin Elaine) Review of Systems/Exam ROS Constitutional: Denies any fever or sweats. Neuro: Denies any headache, dizziness, numbness or tingling. Resp: Denies any shortness of breath or productive cough. Cardiac: Denies any chest pain, palpitations or irregular heart beat. GI: Denies any abdominal pain, nausea, vomiting or bowel incontinence. : Denies any bladder incontinence. Back: Still with lower back pain. Extremities: Denies any weakness or pain to the arms or legs. Exam Constitutional: NAD, pleasant, still responds slowly to questions. HEENT: Normocephalic, atraumatic. Resp: CTAB w/o W/R/R, equal excursion, non-laboured, on RA. CV: S1S2 w/RRR w/o M/G/R, cap refill < 2 sec, radial & pedal pulses 2+ bilaterally, no pedal edema. GI: Abdomen soft, nontender, positive bowel sounds. Extremities: Extremities normal, NTTP, no evident discolouration, deformity or clubbing. Back: TTP across lower back laterally. Pain when lifts lower extremities. Neuro: AAOx3. Speech clear but with slow thought process. Follows commands. Motor strength 5/5 to all major flexion & extension muscle groups. Sensation grossly intact to light touch all extremities. (Mesfin Elaine) Medications Current Medications Current Medications Medications (Trade) Dose Ordered Sig/Gene Route Start Time Stop Time Status Last Admin (Xanax) 1 mg Q6H PRN PO 12/17/16 17:45 12/24/16 22:18 (Zoloft) 100 mg DAILY PO 12/18/16 09:00 12/25/16 09:01 (Oramorph Sr) 15 mg BID PO 12/18/16 09:00 12/25/16 09:03 Famotidine 20 mg 20 mg DAILY PO 12/18/16 09:00 12/25/16 09:01 (NS 1000 ml Inj) 1,000 ml @ 42 mls/hr [id number] IV 12/17/16 17:34 12/23/16 17:28 (NS Flush) 2 ml UNSCH PRN IV FLUSH 12/17/16 17:45 12/23/16 17:43 (NS Flush) 2 ml BID IV FLUSH 12/17/16 21:00 12/25/16 09:01 (Tylenol) 650 mg Q4H PRN PO 12/17/16 17:45 12/22/16 08:39 (Zofran Inj) 4 mg Q6H PRN IVP 12/17/16 17:45 (Colace) 100 mg Q12H PO 12/17/16 17:45 12/24/16 18:28 (Milk Of Magnesia Liq) 30 ml Q12H PRN PO 12/17/16 17:45 (Tylenol) 650 mg Q6H PRN PO 12/17/16 17:45 (Roxicodone) 10 mg Q4H PRN PO 12/17/16 17:45 12/25/16 11:20 (Roxicodone) 5 mg Q4H PRN PO 12/17/16 17:45 12/24/16 16:16 (Narcan Inj) 0.4 mg UNSCH PRN IV 12/17/16 17:45 (Catapres) 0.1 mg Q6H PRN PO 12/17/16 17:45 12/24/16 18:29 (KCl) 20 meq Q12HR PO 12/20/16 12:00 12/25/16 09:01 (Apresoline Inj) 10 mg Q6HR PRN IV PUSH 12/20/16 14:45 12/24/16 18:28 (Lopressor) 50 mg BID PO 12/22/16 21:00 12/25/16 09:01 (SEROquel) 25 mg BID PO 12/22/16 23:15 12/25/16 09:02 (Haldol Inj) 2 mg Q6H PRN IM 12/22/16 23:15 12/24/16 16:16 Diltiazem HCl 60 mg 60 mg Q6HR PO 12/24/16 00:00 12/25/16 13:47 Pharmacy Profile Note 0 ml @ 0 mls/hr UNSCH OTHER 12/24/16 12:15 (Maxipime Inj/NS Inj) 100 ml @ 200 mls/hr Q12H IV 12/24/16 13:00 12/25/16 00:58 Amlodipine Besylate 5 mg 5 mg DAILY PO 12/25/16 09:00 12/25/16 09:02 (Vancomycin Inj/ NS 500 ml Inj) 517.5 ml @ 257.5 mls/ hr Q18H IV 12/25/16 12:00 12/25/16 13:47 Miscellaneous Information SPECIFIC LAB TO BE DRAWN:VANCOMYCIN TROUGH DATE TO... ONCE ONCE .XX 12/26/16 23:45 12/26/16 23:46 (Mesfin Elaine) Medical Decision Making MDM Remarks Impression: L2-3 discitis-osteomyelitis with mostly moderate canal stenosis. The degree of stenosis does not appear to be sufficient to cause cauda equina syndrome or significant nerve compression. There is some enhancement of the bilateral L4 nerve root extending into the thecal sac with probable nerve inflammation. Staphylococcus epidermidis in 1 blood culture from 12/17 (questionable contaminant), no growth from those on 12/18 (final). Pain controlled at present. Neurologically stable at this time Hypertension Hypokalemia, resolved Atrial fibrillation, per Nursing he is in & out of atrial fib Significant white matter disease on MRI brain (Mesfin Elaine) Plan Plan Remarks Discussed plan of care with patient & , no questions asked Abx per ID Continue to mobilize cautiously with physical therapy LSO brace (Mesfin Elaine) Attending Statement Patient remains with significant back pain. Neurologic exam unchanged today-no significant lower extremity deficit. Cultures from biopsy this week negative so far. Continuing IV antibiotics per infectious disease Continues to mobilize out of bed cautiously with physical therapy. Plan follow-up lumbar spine x-ray in the next 7-10 days. (Pravin Powell MD) Mesfin Elaine December 25, 2016 15:11 Pravin Powell MD December 25, 2016 19:54
--- NOTE | 2016-12-25 17:02 | PD.CARD.PN ---
Subjective Subjective Remarks No CP or SOB, mildly confused Objective Medications Current Medications Medications (Trade) Dose Ordered Sig/Gene Route Start Time Stop Time Status Last Admin (Xanax) 1 mg Q6H PRN PO 12/17/16 17:45 12/24/16 22:18 (Zoloft) 100 mg DAILY PO 12/18/16 09:00 12/25/16 09:01 (Oramorph Sr) 15 mg BID PO 12/18/16 09:00 12/25/16 09:03 Famotidine 20 mg 20 mg DAILY PO 12/18/16 09:00 12/25/16 09:01 (NS 1000 ml Inj) 1,000 ml @ 42 mls/hr [id number] IV 12/17/16 17:34 12/23/16 17:28 (NS Flush) 2 ml UNSCH PRN IV FLUSH 12/17/16 17:45 12/23/16 17:43 (NS Flush) 2 ml BID IV FLUSH 12/17/16 21:00 12/25/16 09:01 (Tylenol) 650 mg Q4H PRN PO 12/17/16 17:45 12/22/16 08:39 (Zofran Inj) 4 mg Q6H PRN IVP 12/17/16 17:45 (Colace) 100 mg Q12H PO 12/17/16 17:45 12/24/16 18:28 (Milk Of Magnesia Liq) 30 ml Q12H PRN PO 12/17/16 17:45 (Tylenol) 650 mg Q6H PRN PO 12/17/16 17:45 (Roxicodone) 10 mg Q4H PRN PO 12/17/16 17:45 12/25/16 11:20 (Roxicodone) 5 mg Q4H PRN PO 12/17/16 17:45 12/24/16 16:16 (Narcan Inj) 0.4 mg UNSCH PRN IV 12/17/16 17:45 (Catapres) 0.1 mg Q6H PRN PO 12/17/16 17:45 12/24/16 18:29 (KCl) 20 meq Q12HR PO 12/20/16 12:00 12/25/16 09:01 (Apresoline Inj) 10 mg Q6HR PRN IV PUSH 12/20/16 14:45 12/24/16 18:28 (Lopressor) 50 mg BID PO 12/22/16 21:00 12/25/16 09:01 (SEROquel) 25 mg BID PO 12/22/16 23:15 12/25/16 09:02 (Haldol Inj) 2 mg Q6H PRN IM 12/22/16 23:15 12/24/16 16:16 Diltiazem HCl 60 mg 60 mg Q6HR PO 12/24/16 00:00 12/25/16 13:47 Pharmacy Profile Note 0 ml @ 0 mls/hr UNSCH OTHER 12/24/16 12:15 (Maxipime Inj/NS Inj) 100 ml @ 200 mls/hr Q12H IV 12/24/16 13:00 12/25/16 16:00 Amlodipine Besylate 5 mg 5 mg DAILY PO 12/25/16 09:00 12/25/16 09:02 (Vancomycin Inj/ NS 500 ml Inj) 517.5 ml @ 257.5 mls/ hr Q18H IV 12/25/16 12:00 12/25/16 13:47 Miscellaneous Information SPECIFIC LAB TO BE DRAWN:VANCOMYCIN TROUGH DATE TO... ONCE ONCE .XX 12/26/16 23:45 12/26/16 23:46 Vital Signs / I&O Vital Signs Date Time Temp Pulse Resp B/P Pulse Ox O2 Delivery O2 Flow Rate FiO2 12/25/16 16:17 99.7 71 19 167/83 96 12/25/16 12:32 97.3 64 18 154/75 98 12/25/16 08:37 18 12/25/16 08:36 98.1 73 18 162/88 97 12/25/16 04:00 97.9 63 23 139/74 93 12/25/16 04:00 63 12/25/16 02:00 62 12/25/16 00:00 97.9 71 24 157/77 94 12/25/16 00:00 71 12/24/16 22:00 68 12/24/16 21:14 24 12/24/16 20:00 97.8 67 20 150/67 98 12/24/16 20:00 67 12/24/16 19:00 95 Room Air 21 5/2/17 18:00 68 12/24/16 17:16 30 I/O 12/24/16 12/24/16 12/24/16 12/25/16 12/25/16 12/25/16 07:00 15:00 23:00 07:00 15:00 23:00 Intake Total 773 ml 707 ml 1036 ml 120 ml Output Total 700 ml 600 ml 450 ml 275 ml 100 ml Balance 73 ml 107 ml 586 ml -155 ml -100 ml Intake Oral 400 ml 600 ml 360 ml 120 ml IV Total 373 ml 107 ml 676 ml Output Urine Total 700 ml 600 ml 450 ml 275 ml 100 ml # Voids 2 # Bowel Movements 0 0 0 0 Physical Exam GENERAL: Mildly confused SKIN: Warm and dry. HEAD: Normocephalic. EYES: No scleral icterus. No injection or drainage. NECK: Supple, trachea midline. No JVD or lymphadenopathy. CARDIOVASCULAR: Regular rate and rhythm without murmurs, gallops, or rubs. RESPIRATORY: Breath sounds equal bilaterally. No accessory muscle use. GASTROINTESTINAL: Abdomen soft, non-tender, nondistended. MUSCULOSKELETAL: No cyanosis, or edema. Laboratory Laboratory Tests Test 12/25/16 03:42 White Blood Count 9.9 TH/MM3 Red Blood Count 4.33 MIL/MM3 Hemoglobin 11.2 GM/DL Hematocrit 33.6 % Mean Corpuscular Volume 77.5 FL Mean Corpuscular Hemoglobin 25.7 PG Mean Corpuscular Hemoglobin 33.2 % Concent Red Cell Distribution Width 16.4 % Platelet Count 456 TH/MM3 Mean Platelet Volume 8.3 FL Neutrophils (%) (Auto) 71.1 % Lymphocytes (%) (Auto) 13.4 % Monocytes (%) (Auto) 13.0 % Eosinophils (%) (Auto) 1.8 % Basophils (%) (Auto) 0.7 % Neutrophils # (Auto) 7.0 TH/MM3 Lymphocytes # (Auto) 1.3 TH/MM3 Monocytes # (Auto) 1.3 TH/MM3 Eosinophils # (Auto) 0.2 TH/MM3 Basophils # (Auto) 0.1 TH/MM3 CBC Comment DIFF FINAL Differential Comment Sodium Level 139 MEQ/L Potassium Level 3.8 MEQ/L Chloride Level 106 MEQ/L Carbon Dioxide Level 23.8 MEQ/L Anion Gap 9 MEQ/L Blood Urea Nitrogen 27 MG/DL Creatinine 1.13 MG/DL Estimat Glomerular Filtration 66 ML/MIN Rate Random Glucose 88 MG/DL Calcium Level 9.0 MG/DL Imaging Last Impressions Needle Biopsy/Aspiration X-Ray 12/23/16 0000 Signed Impressions: Service Date/Time: Friday, December 23, 2016 14:54 - CONCLUSION: Uncomplicated needle aspiration of the L2-L3 disc space as above. Octavio Bernstein Jr., MD Brain MRI 12/23/16 Signed Impressions: Service Date/Time: Friday, December 23, 2016 13:48 - CONCLUSION: Significant white matter disease. Jeronimo Guillaume MD Head CT 12/20/16 Signed Impressions: Service Date/Time: Wednesday, December 21, 2016 04:41 - CONCLUSION: Negative noncontrast head CT. Jeronimo Ayers MD Assessment and Plan Problem List: (1) Paroxysmal atrial fibrillation (2) Encephalopathy (3) Discitis of lumbar region (4) SIRS (systemic inflammatory response syndrome) (5) Osteomyelitis of lumbar spine (6) Hypertension Assessment and Plan Stays in SR. Continue and titrate antihypertensive therapy. Eval and tx for discitis/osteomyelitis, had bx to facilitate. Stable from cardiac standpoint. Increase activity. PT/OT. Debra Ramon MD December 25, 2016 17:02
[2016-12-25] MEDS: SODIUM CHLOR 0.9% 1000 ML INJ 1,000 ML IV SCH (17:06)
--- NOTE | 2016-12-25 20:07 | RADRPT ---
EXAM DATE/TIME: 12/25/2016 19:08 [place] COMPARISON: DISC ASPIRATION/BIOPSY, December 23, 2016, 14:54. INDICATIONS : Evaluate for psoas abscess. Patient has severe back pain and abnormal MRI with osteomyelitis/discitis at the L2-3 level. Patient status post recent aspiration on December 23. ORAL CONTRAST: No oral contrast ingested. RADIATION DOSE: 16.53 CTDIvol (mGy) MEDICAL HISTORY : Hypertension. Hepatitis C. L2-L3 Discitis. SURGICAL HISTORY : Cholecystectomy. ENCOUNTER: Initial ACUITY: 3 days PAIN SCALE: 10/10 LOCATION: lower quadrant TECHNIQUE: Volumetric scanning of the abdomen and pelvis was performed. Using automated exposure control and ad justment of the mA and/or kV according to patient size, radiation dose was kept as low as reasonably achievable to obtain optimal diagnostic quality images. FINDINGS: LOWER LUNGS: There is mild scarring and/or atelectasis in the posterior lung bases. There are minimal effusions. LIVER: Homogeneous density without lesion. There is no dilation of the biliary tree. No calcified gallston es. SPLEEN: Normal size without lesion. PANCREAS: Within normal limits. KIDNEYS: Normal in size and shape. There is no mass, stone, or hydronephrosis. ADRENAL GLANDS: Within normal limits. VASCULAR: There is no aortic aneurysm. BOWEL/MESENTERY: The stomach, small bowel, and colon demonstrate no acute abnormality. There is no free intraperitone al air or fluid. ABDOMINAL WALL: Within normal limits. RETROPERITONEUM: There is no lymphadenopathy. BLADDER: No wall thickening or mass. REPRODUCTIVE: Within normal limits. INGUINAL: There is no lymphadenopathy or hernia. MUSCULOSKELETAL: Destructive changes are noted involving the L2 and L3 vertebral bodies consistent with the known disc itis and osteomyelitis. The surrounding soft tissues are prominent. There is no evidence of a focal p soas abscess. The psoas musculature is symmetric. There is apparent destructive change involving the T9 vertebral body with multiple areas of lucency. There is mild mass effect upon the anterior thecal sac. The surrounding soft tissues are abnormally prominent. CONCLUSION: 1. No evidence of psoas abscess. 2. Changes consistent with the known osteomyelitis and discitis at L2-3 level. There is diffuse promi nence of the paravertebral soft tissues. 3. Apparent destructive change involving the T9 vertebral body as well with abnormal prominent surrou nding soft tissues most consistent with discitis/osteomyelitis. Toni Shields MD on December 25, 2016 at 19:56 Board Certified Radiologist. This report was verified electronically.
[2016-12-25] MEDS ORDERED: DEXAMETHASONE SOD PHOS 20 MG/5 ML VIAL IM ONE (20:45)
[2016-12-25] MEDS ORDERED: DEXAMETHASONE SOD PHOS 20 MG/5 ML VIAL IV PUSH ONE (22:00)
[2016-12-25] MEDS: hydrALAZINE HCL 20 MG/ML VIAL IV PUSH PRN (22:13)
[2016-12-26] VITALS: BP 159/85; PULSE 75; RESP 19; TEMP 98.9; O2SAT 97
[2016-12-26] MEDS: CEFEPIME INJ 2,000 MG in SODIUM CHLORIDE 0.9% INJ 100 ML IV SCH ×2 (00:06→12:35)
[2016-12-26] MEDS: DILTIAZEM HCL 30 MG TAB PO SCH ×4 (00:07→19:10)
[2016-12-26] MEDS: SODIUM CHLORIDE 0.9% FLUSH 10 ML FLUSH IV FLUSH PRN (00:07)
[2016-12-26 04:00] VITALS: BP 159/84; PULSE 66; RESP 20; TEMP 97.4; O2SAT 97
[2016-12-26] MEDS: DOCUSATE SODIUM 100 MG CAP PO SCH ×2 (05:31→19:10)
[2016-12-26] MEDS: VANCOMYCIN INJ 1,750 MG in SODIUM CHLORID 0.9% 500 ML INJ 500 ML IV SCH (05:32)
[2016-12-26] MEDS: DEXAMETHASONE SOD PHOS 4 MG/ML VIAL IV PUSH SCH ×4 (05:32→20:40)
[2016-12-26] MEDS: METOPROLOL TARTRATE 50 MG TAB PO SCH ×2 (09:00→20:38)
[2016-12-26 09:06] VITALS: BP 135/71; PULSE 73; RESP 18; TEMP 97.4; O2SAT 96
[2016-12-26] MEDS: SERTRALINE HCL 100 MG TAB PO SCH (10:06)
[2016-12-26] MEDS: POTASSIUM CHLORIDE 20 MEQ CONTROLLED RELEASE TAB PO SCH ×2 (10:07→20:38)
[2016-12-26] MEDS: MORPHINE SULFATE 15 MG CONTROLLED RELEASE TAB PO SCH ×2 (10:07→20:37)
[2016-12-26] MEDS: QUEtiapine FUMARATE 25 MG TAB PO SCH ×2 (10:08→20:39)
[2016-12-26] MEDS: amLODIPine BESYLATE 5 MG TAB PO SCH (10:08)
[2016-12-26] MEDS: FAMOTIDINE 20 MG TAB PO SCH (10:08)
[2016-12-26] MEDS: SODIUM CHLORIDE 0.9% FLUSH 10 ML FLUSH IV FLUSH SCH ×2 (10:09→20:36)
--- NOTE | 2016-12-26 11:31 | HHI.NSPN ---
(Don Elaineterese LONDON) Note Status Status: Progress Note (Mesfin ElaineRaymond LONDON) Interval History Interval History 12/17: 61-year-old male who fell at his home in mid September with subsequent onset of progressive low back pain. He was admitted to [facility] towards the end of September and diagnosed with discitis-osteomyelitis and treated with 8 weeks of intravenous Rocephin which was completed approximately 10 days ago. He has continued to have progression of low back pain, and was seen by orthopedic surgery recently and sent for an MRI which was completed earlier today at [facility]. The study findings were reviewed by radiology and orthopedics, and the patient subsequently referred to the emergency room for admission and further evaluation. 12/18: Patient still with pain to the low back with radiation to the groins, numbness to groins persist. 12/19: Patient awake & alert. Still with low back pain and numbness to the groins. Fixated on not receiving his home medications. 12/20: Awake & alert. Pain still present to the low back with numbness still to the groins. Still some what slow in responding. at bedside and expresses concern that he wasn't treated properly for the infection at [facility]. Transferred to [facility] due to confusion, hypertension, hypokalemia & atrial fibrillation. 12/21: Neurologically stable. Remains with pain along bilateral groins. Waiting for CT-guided biopsy to guide antibiotic treatment. 12/22: Neurologically stable although continues with confusion. Head CT was done on unremarkable. Waiting for CT-guided biopsy to guide antibiotic treatment. 12/23: Still with back pain. Confusion appears improved, oriented x3. Sleeping but awoke to verbal. He is scheduled for a CT-guided biopsy at 1330 today. 12/24: Patient was able to sleep through the night. Low back pain started after he woke up. No numbness or tingling. He had his biopsy yesterday afternoon and also had an MRI brain which demonstrated significant white matter disease. 12/25: Patient has transferred from [facility]. He is doing well today. His only complaint is low back pain. The did state ID is to obtain a CT pelvis. 12/26: When seen this morning the patient is doing well. He only complains of low back pain. He did have a CT abdomen & pelvis yesterday. (Mesfin Elaine) Labs, Micro, & Vital Signs Constitutional Vital Signs Date Time Temp Pulse Resp B/P Pulse Ox O2 Delivery O2 Flow Rate FiO2 12/26/16 09:06 97.4 73 18 135/71 96 12/26/16 07:52 Room Air 12/26/16 06:34 20 12/26/16 04:00 97.4 66 20 159/84 97 12/26/16 00:00 98.9 75 19 159/85 97 12/25/16 23:00 148/68 12/25/16 22:15 20 12/25/16 22:13 178/90 12/25/16 20:00 98.1 74 18 196/90 96 12/25/16 16:17 99.7 71 19 167/83 96 12/25/16 12:32 97.3 64 18 154/75 98 12/26/16 07:00 Intake Total 187 ml Output Total 100 ml Balance 87 ml (Mesfin Elaine) Review of Systems/Exam ROS Constitutional: Denies any fever or sweats. Neuro: Denies any headache, dizziness, numbness or tingling. Resp: Denies any shortness of breath or productive cough. Cardiac: Denies any chest pain, palpitations or irregular heart beat. GI: Denies any abdominal pain, nausea, vomiting or bowel incontinence. : Denies any bladder incontinence. Back: Low back pain this morning. Extremities: Denies any weakness or pain to the arms or legs. Exam Constitutional: NAD, pleasant, slow responses to questions. HEENT: Normocephalic, atraumatic. Resp: CTAB w/o W/R/R, equal excursion, non-laboured, on RA. CV: S1S2 w/RRR w/o M/G/R, cap refill < 2 sec, radial & pedal pulses 2+ bilaterally, no pedal edema. GI: Abdomen soft, nontender, positive bowel sounds. Extremities: Extremities normal, NTTP, no evident discolouration, deformity or clubbing. Back: TTP across lower back laterally. Pain when lifts lower extremities. Neuro: AAOx3. Speech clear but with slow thought process. Follows commands. Motor strength 5/5 to all major flexion & extension muscle groups. Sensation grossly intact to light touch all extremities. (Mesfin Elaine) Medications Current Medications Current Medications Medications (Trade) Dose Ordered Sig/Gene Route Start Time Stop Time Status Last Admin (Xanax) 1 mg Q6H PRN PO 12/17/16 17:45 12/24/16 22:18 (Zoloft) 100 mg DAILY PO 12/18/16 09:00 12/26/16 10:06 (Oramorph Sr) 15 mg BID PO 12/18/16 09:00 12/26/16 10:07 Famotidine 20 mg 20 mg DAILY PO 12/18/16 09:00 12/26/16 10:08 (NS 1000 ml Inj) 1,000 ml @ 42 mls/hr [id number] IV 12/17/16 17:34 12/23/16 17:28 (NS Flush) 2 ml UNSCH PRN IV FLUSH 12/17/16 17:45 12/26/16 00:07 (NS Flush) 2 ml BID IV FLUSH 12/17/16 21:00 12/26/16 10:09 (Tylenol) 650 mg Q4H PRN PO 12/17/16 17:45 12/22/16 08:39 (Zofran Inj) 4 mg Q6H PRN IVP 12/17/16 17:45 (Colace) 100 mg Q12H PO 12/17/16 17:45 12/26/16 05:31 (Milk Of Magnesia Liq) 30 ml Q12H PRN PO 12/17/16 17:45 (Tylenol) 650 mg Q6H PRN PO 12/17/16 17:45 (Roxicodone) 10 mg Q4H PRN PO 12/17/16 17:45 12/26/16 10:08 (Roxicodone) 5 mg Q4H PRN PO 12/17/16 17:45 12/24/16 16:16 (Narcan Inj) 0.4 mg UNSCH PRN IV 12/17/16 17:45 (Catapres) 0.1 mg Q6H PRN PO 12/17/16 17:45 12/24/16 18:29 (KCl) 20 meq Q12HR PO 12/20/16 12:00 12/26/16 10:07 (Apresoline Inj) 10 mg Q6HR PRN IV PUSH 12/20/16 14:45 12/25/16 22:13 (Lopressor) 50 mg BID PO 12/22/16 21:00 12/26/16 09:00 (SEROquel) 25 mg BID PO 12/22/16 23:15 12/26/16 10:08 (Haldol Inj) 2 mg Q6H PRN IM 12/22/16 23:15 12/24/16 16:16 Diltiazem HCl 60 mg 60 mg Q6HR PO 12/24/16 00:00 12/26/16 05:31 Pharmacy Profile Note 0 ml @ 0 mls/hr UNSCH OTHER 12/24/16 12:15 (Maxipime Inj/NS Inj) 100 ml @ 200 mls/hr Q12H IV 12/24/16 13:00 12/26/16 00:06 Amlodipine Besylate 5 mg 5 mg DAILY PO 12/25/16 09:00 12/26/16 10:08 (Vancomycin Inj/ NS 500 ml Inj) 517.5 ml @ 257.5 mls/ hr Q18H IV 12/25/16 12:00 12/26/16 05:32 Miscellaneous Information SPECIFIC LAB TO BE DRAWN:VANCOMYCIN TROUGH DATE TO... ONCE ONCE .XX 12/26/16 23:45 12/26/16 23:46 (Decadron Inj) 4 mg Q6H IV PUSH 12/26/16 04:00 12/26/16 10:09 (Mesfin Elaine) Medical Decision Making MDM Remarks Impression: L2-3 discitis-osteomyelitis with mostly moderate canal stenosis. The degree of stenosis does not appear to be sufficient to cause cauda equina syndrome or significant nerve compression. There is some enhancement of the bilateral L4 nerve root extending into the thecal sac with probable nerve inflammation. Staphylococcus epidermidis in 1 blood culture from 12/17 (questionable contaminant), no growth from those on 12/18 (final). Pain controlled at present. Remains neurologically stable Hypertension Hypokalemia, resolved Atrial fibrillation Significant white matter disease on MRI brain CT abdomen/pelvis w/o () demonstrates T9 vertebral body destructive changes c/w discitis/osteomyelitis, also redemonstrates L2-3 level osteomyelitis & discitis (Mesfin Elaine) Plan Plan Remarks Discussed plan of care with patient Abx per ID Continue to mobilize cautiously with physical therapy LSO brace (Mesfin Elaine) Attending Statement I have personally seen and examined the patient on the date of this note. Pertinent documentation and study results have been reviewed by the undersigned. I have personally developed the treatment plan and performed medical decision making. Agree with findings, exam, and treatment plan as noted above. Neurologic exam remained stable Continue to mobilize out of bed with LSO brace Infectious disease note reviewed (rPavin Powell MD) Mesfin Elaine December 26, 2016 11:31 Pravin Powell MD December 26, 2016 18:51
[2016-12-26 13:16] VITALS: BP 129/65; PULSE 65; RESP 18; TEMP 96.9; O2SAT 97
--- NOTE | 2016-12-26 13:54 | HHI.IDPN ---
Subjective Subjective Remarks Notes reviewed No fever Pain same, meds not working very well CT A/P - no psoas fluid collection, has finding of destructive lesion in his T9 C/S from aspirate L2L3 negative Voiding ok No diarrhea No N/V One (+) BC with Staph epi No new (+) BC Antibiotics Vancomycin Cefepime Lines PIV Past Medical History Hypertension Anxiety/depression/PTSD GERD Hepatitis C Osteoarthritis with chronic pain Discitis/osteomyelitis of the lumbar spine Past Surgical History Cholecystectomy Bilateral knee replacement Tonsils and adenoids Allergies: Coded Allergies: Toradol (Unverified Allergy, Severe, RASH, 12/17/16) Objective . Vital Signs Date Time Temp Pulse Resp B/P Pulse Ox O2 Delivery O2 Flow Rate FiO2 12/26/16 13:16 96.9 65 18 129/65 97 12/26/16 09:06 97.4 73 18 135/71 96 12/26/16 07:52 Room Air 12/26/16 06:34 20 12/26/16 04:00 97.4 66 20 159/84 97 12/26/16 00:00 98.9 75 19 159/85 97 12/25/16 23:00 148/68 12/25/16 22:15 20 12/25/16 22:13 178/90 12/25/16 20:00 98.1 74 18 196/90 96 12/25/16 16:17 99.7 71 19 167/83 96 12/25/16 12/25/16 12/26/16 15:00 23:00 07:00 Intake Total 187 ml Output Total 100 ml Balance -100 ml 187 ml IV Total 187 ml Output Urine Total 100 ml # Voids 2 . Laboratory Tests Test 12/25/16 03:42 White Blood Count 9.9 TH/MM3 Red Blood Count 4.33 MIL/MM3 Hemoglobin 11.2 GM/DL Hematocrit 33.6 % Mean Corpuscular Volume 77.5 FL Mean Corpuscular Hemoglobin 25.7 PG Mean Corpuscular Hemoglobin 33.2 % Concent Red Cell Distribution Width 16.4 % Platelet Count 456 TH/MM3 Mean Platelet Volume 8.3 FL Neutrophils (%) (Auto) 71.1 % Lymphocytes (%) (Auto) 13.4 % Monocytes (%) (Auto) 13.0 % Eosinophils (%) (Auto) 1.8 % Basophils (%) (Auto) 0.7 % Neutrophils # (Auto) 7.0 TH/MM3 Lymphocytes # (Auto) 1.3 TH/MM3 Monocytes # (Auto) 1.3 TH/MM3 Eosinophils # (Auto) 0.2 TH/MM3 Basophils # (Auto) 0.1 TH/MM3 CBC Comment DIFF FINAL Differential Comment Laboratory Tests Test 12/25/16 03:42 Sodium Level 139 MEQ/L Potassium Level 3.8 MEQ/L Chloride Level 106 MEQ/L Carbon Dioxide Level 23.8 MEQ/L Anion Gap 9 MEQ/L Blood Urea Nitrogen 27 MG/DL Creatinine 1.13 MG/DL Estimat Glomerular Filtration 66 ML/MIN Rate Random Glucose 88 MG/DL Calcium Level 9.0 MG/DL Microbiology Date/Time Procedure Status Source Growth 12/23/16 15:05 Cancelled Fluid Other 12/23/16 15:05 Cancelled Fluid Other 12/23/16 15:05 Cancelled Fluid Other 12/23/16 15:05 Acid Fast Stain - Final Resulted Tissue Other NO ACID FAST BACILLI SEEN 12/23/16 15:05 Mycobacterial Culture Resulted Tissue Other Pending 12/23/16 15:05 Cancelled Tissue Lung 12/23/16 15:05 Gram Stain - Final Complete Tissue Other 12/23/16 15:05 Wound Culture - Final Complete Tissue Other NO GROWTH IN 72 HRS.--AEROBICALLY OR ... 12/23/16 15:05 Fungal Smear - Final Resulted Tissue Other NO FUNGAL ELEMENTS SEEN. 12/23/16 15:05 Fungal Culture Resulted Tissue Other Pending Physical Exam GENERAL: awake and alert, NAD SKIN: Cool and moist. No generalized rash HEENT: [place] conjunctivae. No scleral icterus. Moist oral mucosa. NECK: Supple, nontender, no meningeal signs. CARDIOVASCULAR: Regular rate and rhythm without gallops, or rubs. ?soft murmur at base of the heart RESPIRATORY: Clear to auscultation. Breath sounds equal bilaterally. No wheezes , rales, or rhonchi. GASTROINTESTINAL: Abdomen soft, non-tender, nondistended. No hepato-splenomegaly , or palpable masses. No guarding. No rebound. Bowel sounds are present and normoactive. MUSCULOSKELETAL: Extremities without clubbing, cyanosis, or edema. No calf tenderness. He has scars in both knees compatible with his surgical history. Has no pain in movement of his knee joints or hip joints. NEUROLOGICAL: Non-focal PSYCH: Normal affect, calm and cooperative. LINE: PIV with no evidence of infection Assessment & Plan Remarks IMPRESSION L2-L3 discitis, osteomyelitis, S/P Rx with IV Rocephin x 8 weeks - initial C/S neg, but G/S with rare GNR - worse clinically - repeat scan, findings ?same as previous MRI Has finding of T9 destructive changes One (+) BC with Staph epi, ?real or contaminant RECOMMENDATION Follow C/S Change Abx to Rocephin since C/S negative Thoracic spine MRI - if abnormal, consider repeat biopsy and send path, and C/S and ask neurosurgery to reevaluate - patient requesting to be medicated for the procedure; D/W Dr Coleman Can have PICC placed Monitor progress Pain control Explained plan to patient D/W RN D/W Dr Coleman (HEPAS) Audrey Flores MD December 26, 2016 13:54
[2016-12-26] MEDS ORDERED: LORazepam 0.5 MG TAB PO SCH (14:00)
[2016-12-26] MEDS ORDERED: SOD PHOSPHATE/SOD BIPHOSPHATE (ADULT) ENEMA 133ML RECTAL PRN (14:15)
--- NOTE | 2016-12-26 14:27 | HHI.PR ---
Subjective Remarks Follow up for discitis, osteomyelitis. Mr. Healy is doing well. Reports no fever, chills. Wants to go to rehab. Objective Vitals Vital Signs Date Time Temp Pulse Resp B/P Pulse Ox O2 Delivery O2 Flow Rate FiO2 12/26/16 13:16 96.9 65 18 129/65 97 12/26/16 09:06 97.4 73 18 135/71 96 12/26/16 07:52 Room Air 12/26/16 06:34 20 12/26/16 04:00 97.4 66 20 159/84 97 12/26/16 00:00 98.9 75 19 159/85 97 12/25/16 23:00 148/68 12/25/16 22:15 20 12/25/16 22:13 178/90 12/25/16 20:00 98.1 74 18 196/90 96 12/25/16 16:17 99.7 71 19 167/83 96 I/O 12/25/16 12/25/16 12/25/16 12/26/16 12/26/16 12/26/16 07:00 15:00 23:00 07:00 15:00 23:00 Intake Total 120 ml 187 ml 360 ml Output Total 275 ml 100 ml 275 ml Balance -155 ml -100 ml 187 ml 85 ml Intake Oral 120 ml 360 ml IV Total 187 ml 0 ml Output Urine Total 275 ml 100 ml 275 ml # Voids 2 # Bowel Movements 0 Result Diagram: 12/25/16 0342 12/25/16 0342 Imaging Last Impressions Thoracic Spine MRI 12/26/16 0000 Signed Impressions: Service Date/Time: December 15:23 - CONCLUSION: 1. Abnormal edema and enhancement at the T8 and T9 vertebral bodies with fluid and enhancement of the T8-T9 disc characteristic of discitis/osteomyelitis at this level. There is also abnormal enhancing paraspinal soft tissue surrounding this level. No epidural abscess is visualized. 2. There is mild nonspecific edema at the inferior endplate of T7. 3. There is spinal canal stenosis of a mild degree at T8-T9. Jeronimo Paul MD Abdomen/Pelvis CT 12/25/16 0000 Signed Impressions: Service Date/Time: Sunday, December 25, 2016 19:08 - CONCLUSION: 1. No evidence of psoas abscess. 2. Changes consistent with the known osteomyelitis and discitis at L2-3 level. There is diffuse prominence of the paravertebral soft tissues. 3. Apparent destructive change involving the T9 vertebral body as well with abnormal prominent surrounding soft tissues most consistent with discitis/osteomyelitis. Toni Shields MD Needle Biopsy/Aspiration X-Ray 12/23/16 0000 Signed Impressions: Service Date/Time: Friday, December 23, 2016 14:54 - CONCLUSION: Uncomplicated needle aspiration of the L2-L3 disc space as above. Octavio Bernstein Jr., MD Brain MRI 12/23/16 0000 Signed Impressions: Service Date/Time: Friday, December 23, 2016 13:48 - CONCLUSION: Significant white matter disease. Jeronimo Guillaume MD Head CT 12/20/16 0000 Signed Impressions: Service Date/Time: Wednesday, December 21, 2016 04:41 - CONCLUSION: Negative noncontrast head CT. Jeronimo Ayers MD Objective Remarks GENERAL: Alert, NAD. SKIN: Warm and dry. HEAD: Normocephalic. EYES: No scleral icterus. No injection or drainage. NECK: Supple, trachea midline. No JVD or lymphadenopathy. CARDIOVASCULAR: Regular rate and rhythm without murmurs, gallops, or rubs. RESPIRATORY: Breath sounds equal bilaterally. No accessory muscle use. GASTROINTESTINAL: Abdomen soft, non-tender, nondistended. MUSCULOSKELETAL: No cyanosis, or edema. BACK: Nontender without obvious deformity. No CVA tenderness. Procedures L2-L3 disc aspiration by IR on 12/23/2016. A/P Assessment and Plan 61-year-old male with past medical history of discitis/osteomyelitis, HTN, PTSD , hep C, GERD, OA, chronic pain who presented with worsening lower back pain found to have likely chronic discitis. - L2-L3 discitis - osteomyelitis with moderate canal stenosis. - Neurosurgery following - do not think stenosis is significant enough to cause Cauda Equina syndrome. - ID is following. Patient is currently on IV vancomycin and IV Cefepime. - Thoracic spine MRI shows T8-T9 osteomyelitis. Another evaluation by neurosurgery may be beneficial. - Discussed with ID. PICC line order placed. - If there is no plan to do any surgical interventions, patient can potentially go to [facility] pending insurance approval. - Atrial fibrillation - Continue Cardizem 60mg PO Q6hrs, Metoprolol 50mg BID. - [id number] score is likely 1 (HTN). May benefit from aspirin 75mg Qday. - Acute kidney injury - Creatinine improved from 2.60 --> 1.42 --> 1.13. - Hypertension - Continue Amlodipine 5mg Qday - Continue Cardizem, Metoprolol for rate control. - Agitation/Hallucination - Continue Seroquel 25mg BID. Full code. [facility] Rochelle Coleman DO December 26, 2016 14:27
[2016-12-26] MEDS ORDERED: BISACODYL 10 MG SUPP RECTAL PRN (15:00)
[2016-12-26] MEDS ORDERED: GADODIAMIDE PF 287 MG/ML 20 ML VIAL (for RAD MRI) IV ONE (15:57)
--- NOTE | 2016-12-26 16:31 | RADRPT ---
EXAM DATE/TIME: 12/26/2016 15:23 [facility] COMPARISON: CT ABDOMEN & PELVIS W/O CONTRAST, December 25, 2016, 19:08. INDICATIONS : Discitis. CONTRAST: 20 cc Omniscan (gadodiamide) IV MEDICAL HISTORY : Hypertension. SURGICAL HISTORY : Total knee replacement, left. Total knee replacement, right. Cholecystectomy. ENCOUNTER: Subsequent ACUITY: 1 week PAIN SCORE: 8/10 LOCATION: back. TECHNIQUE: Multiplanar multisequence MRI of the thoracic spine was performed. FINDINGS: VERTEBRA: There is abnormal decreased T1, increased T2, and abnormal enhancement within the T8 and T9 vertebral bodies. There is also fluid in the T8-T9 disc space. There is also abnormal soft tissue enhancement of the paraspinous tissue around the T8-T9 level anteriorly and laterally. There appears to be some d estruction of the endplates posteriorly at this level. Very mild inferior endplate edema is present a t T7. Remaining vertebral bodies demonstrate normal height and signal intensity. There is a hemangiom a within the T11 vertebral body. ALIGNMENT: No anterolisthesis or retrolisthesis is present. CORD: Normal position and configuration. POST CONTRAST: No abnormal areas of contrast enhancement seen. T1-T2: No disc herniation, canal stenosis, or neural foraminal stenosis. T2-T3: No disc herniation, canal stenosis, or neural foraminal stenosis. T3-T4: No disc herniation, canal stenosis, or neural foraminal stenosis. T4-T5: No disc herniation, canal stenosis, or neural foraminal stenosis. T5-T6: There is a mild disc bulge. No canal stenosis or neural foraminal stenosis is present. T6-T7: There is a mild disc bulge. No canal stenosis or neural foraminal stenosis is present. T7-T8: There is a diffuse disc bulge. No canal stenosis or neural foraminal narrowing is visualized. There i s a paraspinal edema and mild enhancing soft tissue at this level. T8-T9: There is a disc bulge with mild narrowing of the spinal canal. No epidural abscess is visualized. The re is abnormal enhancing soft tissue in a paraspinal distribution. T9-T10: No disc herniation, canal stenosis, or neural foraminal stenosis. T10-T11: No disc herniation, canal stenosis, or neural foraminal stenosis. T11-T12: No disc herniation, canal stenosis, or neural foraminal stenosis. T12-L1: No disc herniation, canal stenosis, or neural foraminal stenosis. CONCLUSION: 1. Abnormal edema and enhancement at the T8 and T9 vertebral bodies with fluid and enhancement of the T8-T9 disc characteristic of discitis/osteomyelitis at this level. There is also abnormal enhancing paraspinal soft tissue surrounding this level. No epidural abscess is visualized. 2. There is mild nonspecific edema at the inferior endplate of T7. 3. There is spinal canal stenosis of a mild degree at T8-T9. Jeronimo Paul MD on December 26, 2016 at 16:21 Board Certified Radiologist. This report was verified electronically.
[2016-12-26 17:02] VITALS: BP 144/71; PULSE 74; RESP 18; TEMP 96.5; O2SAT 98
[2016-12-26] MEDS ORDERED: SODIUM CHLORIDE 0.9% FLUSH 10 ML FLUSH IV FLUSH PRN (18:45)
[2016-12-26] MEDS: cefTRIAXone INJ 2,000 MG in SODIUM CHLORIDE 0.9% INJ 100 ML IV SCH (19:10)
[2016-12-26] MEDS: SODIUM CHLOR 0.9% 1000 ML INJ 1,000 ML IV SCH (19:11)
[2016-12-26 20:00] VITALS: BP 169/82; PULSE 63; RESP 18; TEMP 96; O2SAT 94
[2016-12-26] MEDS: ALPRAZolam 1 MG TAB PO PRN (20:37)
[2016-12-26] MEDS ORDERED: PHARMACY ORDERED LAB ONE (23:45)
[2016-12-27] MEDS: HALOPERIDOL LACTATE 5 MG/ML AMP IM PRN (00:26)
[2016-12-27 00:30] VITALS: BP 165/72; PULSE 54; RESP 18; TEMP 99.4; O2SAT 96
[2016-12-27] MEDS: DILTIAZEM HCL 30 MG TAB PO SCH ×4 (00:36→17:35)
[2016-12-27 04:00] VITALS: BP 160/92; PULSE 90; RESP 18; TEMP 96.5; O2SAT 98
[2016-12-27] MEDS: DEXAMETHASONE SOD PHOS 4 MG/ML VIAL IV PUSH SCH ×4 (04:34→22:07)
[2016-12-27] MEDS: ALPRAZolam 1 MG TAB PO PRN (05:30)
[2016-12-27] MEDS: DOCUSATE SODIUM 100 MG CAP PO SCH ×2 (05:30→17:35)
--- NOTE | 2016-12-27 06:16 | RADRPT ---
EXAM DATE/TIME: 12/27/2016 05:00 [facility] COMPARISON: No previous studies available for comparison. INDICATIONS : Post PICC placement. MEDICAL HISTORY : Hypertension. SURGICAL HISTORY : None. ENCOUNTER: Initial ACUITY: 1 day PAIN SCORE: Non-responsive. LOCATION: Bilateral chest FINDINGS: A single view of the chest demonstrates the lungs to be symmetrically aerated without evidence of mas s, infiltrate or effusion. The cardiomediastinal contours are unremarkable. Osseous structures are intact. CONCLUSION: No acute disease. Right-sided PICC line with tip in the right atrium. Joel Escobar MD on December 27, 2016 at 6:14 Board Certified Radiologist. This report was verified electronically.
[2016-12-27 08:00] VITALS: BP 169/90; PULSE 60; RESP 19; TEMP 96.1; O2SAT 97
[2016-12-27] MEDS: FAMOTIDINE 20 MG TAB PO SCH (08:37)
[2016-12-27] MEDS: POTASSIUM CHLORIDE 20 MEQ CONTROLLED RELEASE TAB PO SCH ×2 (08:37→22:08)
[2016-12-27] MEDS: QUEtiapine FUMARATE 25 MG TAB PO SCH ×2 (08:38→22:08)
[2016-12-27] MEDS: MORPHINE SULFATE 15 MG CONTROLLED RELEASE TAB PO SCH ×2 (08:38→22:09)
[2016-12-27] MEDS: amLODIPine BESYLATE 5 MG TAB PO SCH (08:38)
[2016-12-27] MEDS: SERTRALINE HCL 100 MG TAB PO SCH (08:38)
[2016-12-27] MEDS: METOPROLOL TARTRATE 50 MG TAB PO SCH ×2 (08:38→22:08)
[2016-12-27] MEDS: SODIUM CHLORIDE 0.9% FLUSH 10 ML FLUSH IV FLUSH SCH ×2 (08:39→22:04)
[2016-12-27] MEDS ORDERED: SODIUM CHLORIDE 0.9% FLUSH 10 ML FLUSH IV FLUSH SCH (09:00)
--- NOTE | 2016-12-27 11:04 | RADRPT ---
EXAM DATE/TIME: 12/27/2016 10:13 [facility] COMPARISON: MRI THORACIC SPINE W & W/O CONTRAST, December 26, 2016, 15:23. INDICATIONS : Osteomyelitis; Discitis RADIATION DOSE: 35.86 CTDIvol (mGy) MEDICAL HISTORY : Cardiovascular disease. Hypertension. Hepatitis C. SURGICAL HISTORY : None. ENCOUNTER: Initial ACUITY: 3 days PAIN SCALE: 4/10 LOCATION: thoracic spine TECHNIQUE: Volumetric scanning of the thoracic spine was performed. Multiplanar reconstructions in the sagittal , coronal and oblique axial planes were performed. Using automated exposure control and adjustment o f the mA and/or kV according to patient size, radiation dose was kept as low as reasonably achievable to obtain optimal diagnostic quality images. FINDINGS: There is minimal right convex thoracic scoliosis. No evidence of spondylolisthesis. There is scleroti c change and some endplate destructive change involving the T7, T8 and T9 vertebral bodies consistent with discitis and osteomyelitis. The other levels appear benign. There is some degree of undulating dorsal disc osteophyte eccentric to the left at T7-8 and T8-9 level appears to be moderate effacement of the lateral recess on the left, particularly at T8-9 level. There is mild paraspinal soft tissue induration/edema at both these levels. CONCLUSION: Findings consistent with known discitis and osteomyelitis at T7-8 and T8-9 Jeronimo Guillaume MD on December 27, 2016 at 10:58 Board Certified Radiologist. This report was verified electronically.
[2016-12-27 12:00] VITALS: BP 154/86; PULSE 57; RESP 19; TEMP 96.4; O2SAT 97
[2016-12-27] MEDS ORDERED: PHARMACY ORDERED LAB ONE (12:45)
[2016-12-27] MEDS: cefTRIAXone INJ 2,000 MG in SODIUM CHLORIDE 0.9% INJ 100 ML IV SCH (14:59)
[2016-12-27 16:00] VITALS: BP 134/77; PULSE 54; RESP 17; TEMP 96.3; O2SAT 96
--- NOTE | 2016-12-27 16:31 | HHI.PR ---
Subjective Remarks Follow up for discitis, osteomyelitis. Patient is doing well. No acute concerns. No fever, chills. Objective Vitals Vital Signs Date Time Temp Pulse Resp B/P Pulse Ox O2 Delivery O2 Flow Rate FiO2 12/27/16 12:00 96.4 57 19 154/86 97 12/27/16 08:00 96.1 60 19 169/90 97 12/27/16 06:07 20 12/27/16 04:00 96.5 90 18 160/92 98 12/27/16 00:30 99.4 54 18 165/72 96 12/26/16 21:37 20 12/26/16 20:00 Room Air 12/26/16 20:00 96.0 63 18 169/82 94 12/26/16 17:02 96.5 74 18 144/71 98 I/O 12/26/16 12/26/16 12/26/16 12/27/16 12/27/16 12/27/16 07:00 15:00 23:00 07:00 15:00 23:00 Intake Total 187 ml 670 ml 360 ml 0 ml Output Total 275 ml 200 ml Balance 187 ml 395 ml 160 ml 0 ml Intake Oral 360 ml 360 ml IV Total 187 ml 310 ml 0 ml Output Urine Total 275 ml 200 ml # Voids 1 Result Diagram: 12/25/16 0342 12/25/16 0342 Imaging Last Impressions Chest X-Ray 12/27/16 0600 Signed Impressions: Service Date/Time: Tuesday, December 27, 2016 05:00 - CONCLUSION: No acute disease. Right-sided PICC line with tip in the right atrium. Joel Escobar MD Thoracic Spine CT 12/27/16 0000 Signed Impressions: Service Date/Time: Tuesday, December 27, 2016 10:13 - CONCLUSION: Findings consistent with known discitis and osteomyelitis at T7-8 and T8-9 Jeronimo Guillaume MD Thoracic Spine MRI 12/26/16 0000 Signed Impressions: Service Date/Time: December 15:23 - CONCLUSION: 1. Abnormal edema and enhancement at the T8 and T9 vertebral bodies with fluid and enhancement of the T8-T9 disc characteristic of discitis/osteomyelitis at this level. There is also abnormal enhancing paraspinal soft tissue surrounding this level. No epidural abscess is visualized. 2. There is mild nonspecific edema at the inferior endplate of T7. 3. There is spinal canal stenosis of a mild degree at T8-T9. Jeronimo Paul MD Abdomen/Pelvis CT 12/25/16 0000 Signed Impressions: Service Date/Time: Sunday, December 25, 2016 19:08 - CONCLUSION: 1. No evidence of psoas abscess. 2. Changes consistent with the known osteomyelitis and discitis at L2-3 level. There is diffuse prominence of the paravertebral soft tissues. 3. Apparent destructive change involving the T9 vertebral body as well with abnormal prominent surrounding soft tissues most consistent with discitis/osteomyelitis. Toni Shields MD Needle Biopsy/Aspiration X-Ray 12/23/16 0000 Signed Impressions: Service Date/Time: Friday, December 23, 2016 14:54 - CONCLUSION: Uncomplicated needle aspiration of the L2-L3 disc space as above. Octavio Bernstein Jr., MD Brain MRI 12/23/16 0000 Signed Impressions: Service Date/Time: Friday, December 23, 2016 13:48 - CONCLUSION: Significant white matter disease. Jeronimo Guillaume MD Head CT 12/20/16 0000 Signed Impressions: Service Date/Time: Wednesday, December 21, 2016 04:41 - CONCLUSION: Negative noncontrast head CT. Jeronimo Ayers MD Objective Remarks GENERAL: Alert, NAD. SKIN: Warm and dry. HEAD: Normocephalic. EYES: No scleral icterus. No injection or drainage. NECK: Supple, trachea midline. No JVD or lymphadenopathy. CARDIOVASCULAR: Regular rate and rhythm without murmurs, gallops, or rubs. RESPIRATORY: Breath sounds equal bilaterally. No accessory muscle use. GASTROINTESTINAL: Abdomen soft, non-tender, nondistended. MUSCULOSKELETAL: No cyanosis, or edema. BACK: Nontender without obvious deformity. No CVA tenderness. Procedures L2-L3 disc aspiration by IR on 12/23/2016. A/P Assessment and Plan 61-year-old male with past medical history of discitis/osteomyelitis, HTN, PTSD , hep C, GERD, OA, chronic pain who presented with worsening lower back pain found to have likely chronic discitis. - L2-L3 discitis - osteomyelitis with moderate canal stenosis. - Neurosurgery following - do not think stenosis is significant enough to cause Cauda Equina syndrome. - ID is following. Patient is currently on IV vancomycin and IV Cefepime. - Thoracic spine MRI shows T8-T9 osteomyelitis. Discussed with ID and neurosurgery. ID recommends possibly getting a biopsy and send for culture/ sensitivity. - Discussed with ID. PICC line order placed. - Will wait for further recs from Neurosurgery. Patient has been accepted at [facility] and insurance approved. Once ID, Neurosurgery clear for discharge, we can d/c pt. - Atrial fibrillation - Continue Cardizem 60mg PO Q6hrs, Metoprolol 50mg BID. - [id number] score is likely 1 (HTN). May benefit from aspirin 75mg Qday. - Acute kidney injury - Creatinine improved from 2.60 --> 1.42 --> 1.13. - Hypertension - Continue Amlodipine 5mg Qday - Continue Cardizem, Metoprolol for rate control. - Agitation/Hallucination - Continue Seroquel 25mg BID. Full code. Rochelle Diallo DO December 27, 2016 4:31 pm
[2016-12-27] MEDS: SODIUM CHLOR 0.9% 1000 ML INJ 1,000 ML IV SCH ×2 (16:44→22:05)
[2016-12-27 20:17] VITALS: BP 163/89; PULSE 56; RESP 16; TEMP 97.6; O2SAT 96
--- NOTE | 2016-12-27 22:16 | HHI.NSPN ---
Exam Results Vital Signs Date Time Temp Pulse Resp B/P Pulse Ox O2 Delivery O2 Flow Rate FiO2 12/27/16 20:17 97.6 56 16 163/89 96 12/26/16 20:00 Room Air 12/24/16 19:00 21 Intake and Output 12/26/16 12/26/16 12/27/16 08:00 16:00 00:00 Intake Total 187 ml 670 ml 360 ml Output Total 275 ml 200 ml Balance 187 ml 395 ml 160 ml Physical Examination Constitutional: NAD, pleasant, slow responses to questions. HEENT: Normocephalic, atraumatic. Resp: CTAB w/o W/R/R, equal excursion, non-laboured, on RA. CV: S1S2 w/RRR w/o M/G/R, cap refill < 2 sec, radial & pedal pulses 2+ bilaterally, no pedal edema. GI: Abdomen soft, nontender, positive bowel sounds. Extremities: Extremities normal, NTTP, no evident discolouration, deformity or clubbing. Back: TTP across lower back laterally. Pain when lifts lower extremities. Neuro: AAOx3. Speech clear but with slow thought process. Follows commands. He exhibits mild weakness in bilateral tibialis anterior and right iliopsoas testing today but does complain of some pain with right iliopsoas testing. Sensation intact light touch lower extremities No ankle clonus Plantar response is neutral bilateral Lab, Micro, Other Results 12/26/16 thoracic spine MRI reveals T7 8, T8 9 discitis-osteomyelitis. There is moderate T8 9 stenosis. It appears that there is just adequate room for the cord to traverse. There might be mild increased signal intensity within the cord. 12/27/[address] scan reveals T7-8-9 discitis-osteomyelitis. No significant overall bone retropulsion or kyphotic deformity. There is moderate stenosis at the T8 9 level Chest X-Ray 12/27/16 0600 Signed Impressions: Service Date/Time: Tuesday, December 27, 2016 05:00 - CONCLUSION: No acute disease. Right-sided PICC line with tip in the right atrium. Joel Escobar MD Thoracic Spine CT 12/27/16 0000 Signed Impressions: Service Date/Time: Tuesday, December 27, 2016 10:13 - CONCLUSION: Findings consistent with known discitis and osteomyelitis at T7-8 and T8-9 Jeronimo Guillaume MD Medical Decision Making Impression and Plan Impression: 1. T7 8, T8 9 discitis-osteomyelitis. Mild to moderate T8 9 canal stenosis. No definite abscess formation 2. L2-3 discitis-osteomyelitis. No definite residual abscess in the canal or paraspinous musculature 3. Progressive gait difficulty over the past few weeks. Seems most likely related to lumbar radiculitis and increased low back pain with ambulation but cannot rule out a component of thoracic myelopathy. No evidence of cauda equina syndrome. Plan: Findings were discussed at length with the patient and his . Option of conservative treatment versus surgical intervention for the T8 9 stenosis has been fully discussed. He and his states that they will consider options, but initially appeared to desire conservative treatment and observation. He is clear from neurosurgical standpoint to proceed with inpatient rehabilitation.. Signs and symptoms to watch for have been discussed. Depending on his clinical course, he may still require surgical intervention. Pravin Powell MD December 27, 2016 22:16
[2016-12-28 00:01] VITALS: BP 135/85; PULSE 56; RESP 16; TEMP 97.2; O2SAT 95
[2016-12-28] MEDS: DILTIAZEM HCL 30 MG TAB PO SCH ×3 (00:37→11:43)
[2016-12-28] MEDS: DEXAMETHASONE SOD PHOS 4 MG/ML VIAL IV PUSH SCH ×2 (03:39→09:52)
[2016-12-28] MEDS: cloNIDine HCL 0.1 MG TAB PO PRN (04:06)
[2016-12-28 04:15] VITALS: BP 193/94; PULSE 56; RESP 16; TEMP 97.2; O2SAT 96
[2016-12-28 05:30] VITALS: BP 156/84
[2016-12-28] MEDS: DOCUSATE SODIUM 100 MG CAP PO SCH (06:23)
[2016-12-28 08:00] VITALS: BP 166/86; PULSE 57; RESP 20; TEMP 96.8; O2SAT 95
[2016-12-28] MEDS ORDERED: AMLO10 PO (08:18)
[2016-12-28] MEDS ORDERED: OXYC-392 PO ×2 (08:18)
[2016-12-28] MEDS ORDERED: MORP1TAB24 PO (08:18)
[2016-12-28] MEDS ORDERED: DILT-60 PO (08:18)
[2016-12-28] MEDS ORDERED: QUET1TAB7 PO (08:18)
[2016-12-28] MEDS ORDERED: METO-309 PO (08:18)
[2016-12-28] MEDS ORDERED: DEXA4TAB PO (08:18)
[2016-12-28] MEDS ORDERED: CEFT2INJ2 IV (08:19)
--- NOTE | 2016-12-28 08:24 | HHI.DS ---
Discharge Summary Admission Date Dec 17, 2016 at 4:48 pm Discharge Date: December 28, 2016 Admitting Diagnosis discitis (1) Discitis of lumbar region ICD Code: M46.46 Diagnosis: Principal (2) Osteomyelitis of lumbar spine ICD Code: M46.26 Diagnosis: Principal (3) Osteomyelitis of thoracic spine ICD Code: M46.24 Diagnosis: Principal (4) Paroxysmal atrial fibrillation ICD Code: I48.0 Procedures L2-L3 disc aspiration by IR on 12/23/2016. 12/22/2016 - Left ventricle: The cavity size was normal. Wall thickness was increased increased in a pattern of mild to moderate LVH. Systolic function was normal. The estimated ejection fraction was 55%. Wall motion was normal; there were no regional wall motion abnormalities. - Aortic valve: Trileaflet; mildly thickened, mildly calcified leaflets. Trace regurgitation. - Mitral valve: Calcified annulus. - Right ventricle: The cavity size was mildly dilated. Wall thickness was normal. - Tricuspid valve: Mild regurgitation. - Pulmonary arteries: Systolic pressure was mildly increased. PA peak pressure: 47mm Hg (S). Brief History - From Admission 61-year-old male with past medical history of discitis/osteomyelitis, HTN, PTSD , hep C, GERD, OA, chronic pain who presented with worsening lower back pain. Currently the patient is oriented to self, knows he is in the hospital, and the years 2016. However the patient currently believes he is in a hospital in [place] and still lives in [place], and he currently lives in [place]. Also states that the month is December. The patient asks that I get the past medical history from his significant other at bedside. The patient's significant other states that they've been together for 20 years and she is his designated decision maker. Reviewed records from previous hospitalization with the patient's significant other. Apparently in September the patient had a mechanical fall on his knees. He does have a history of bilateral knee replacement. He states that he had an x-ray done of his knees and that was fine. However, afterwards he began to have lower back pain. The patient denies any acute injury to his back, or any injuries that could've caused breaks in the skin. His PCP ordered an MRI which showed possible abscess on the lumbar spine with suggestion of discitis/ osteomyelitis. He went to [facility] for treatment. He had a CT-guided drainage of the lumbar abscess, which apparently grew no organisms. The patient was was seen by infectious disease there and given IV ceftriaxone from to 12/08. Apparently since that previous admission he has been doing worse with regards to back pain and weakness. They report that he did not have a follow-up appointment set up with infectious disease. He is seen pain management who has put him on long-acting morphine. He was eventually referred to orthopedic spine surgery with Dr. Mora who ordered a lumbar MRI to assess for clearing of the infection. The patient was referred to the ED because repeat lumbar MRI continues to show signs of discitis/osteomyelitis. The patient complains of pain in his bilateral lower back that radiates down both legs. He denies any numbness or tingling of his legs. He does have a hard time walking due to the back pain. He has weakness of his legs, that he attributes to pain. The patient denies any fever, chills, incontinence, nausea , vomiting, diarrhea. He does report decreased oral intake recently. The patient does admit to me that he injected liquid morphine last year. Interventional radiology was contacted from the ED, reports they're unable to perform drainage of spinal lesion and recommends neurosurgery evaluation. Reportedly IR talked to orthopedics spine surgery as well who agreed. Neurosurgery, Dr. Powell, was contacted who recommended nothing by mouth and a dose of antibiotics. CBC/BMP: 12/25/16 0342 12/25/16 0342 Imaging Last Impressions Chest X-Ray 12/27/16 0600 Signed Impressions: Service Date/Time: Tuesday, December 27, 2016 05:00 - CONCLUSION: No acute disease. Right-sided PICC line with tip in the right atrium. Joel Escobar MD Thoracic Spine CT 12/27/16 0000 Signed Impressions: Service Date/Time: Tuesday, December 27, 2016 10:13 - CONCLUSION: Findings consistent with known discitis and osteomyelitis at T7-8 and T8-9 Jeronimo Guillaume MD Thoracic Spine MRI 12/26/16 0000 Signed Impressions: Service Date/Time: December 15:23 - CONCLUSION: 1. Abnormal edema and enhancement at the T8 and T9 vertebral bodies with fluid and enhancement of the T8-T9 disc characteristic of discitis/osteomyelitis at this level. There is also abnormal enhancing paraspinal soft tissue surrounding this level. No epidural abscess is visualized. 2. There is mild nonspecific edema at the inferior endplate of T7. 3. There is spinal canal stenosis of a mild degree at T8-T9. Jeronimo Paul MD Abdomen/Pelvis CT 12/25/16 0000 Signed Impressions: Service Date/Time: Sunday, December 25, 2016 19:08 - CONCLUSION: 1. No evidence of psoas abscess. 2. Changes consistent with the known osteomyelitis and discitis at L2-3 level. There is diffuse prominence of the paravertebral soft tissues. 3. Apparent destructive change involving the T9 vertebral body as well with abnormal prominent surrounding soft tissues most consistent with discitis/osteomyelitis. Toni Shields MD Needle Biopsy/Aspiration X-Ray 12/23/16 0000 Signed Impressions: Service Date/Time: Friday, December 23, 2016 14:54 - CONCLUSION: Uncomplicated needle aspiration of the L2-L3 disc space as above. Octavio Bernstein Jr., MD Brain MRI 12/23/16 0000 Signed Impressions: Service Date/Time: Friday, December 23, 2016 13:48 - CONCLUSION: Significant white matter disease. Jeronimo Guillaume MD Head CT 12/20/16 0000 Signed Impressions: Service Date/Time: Wednesday, December 21, 2016 04:41 - CONCLUSION: Negative noncontrast head CT. Jeronimo Ayers MD PE at Discharge GENERAL: Alert, NAD. SKIN: Warm and dry. HEAD: Normocephalic. EYES: No scleral icterus. No injection or drainage. NECK: Supple, trachea midline. No JVD or lymphadenopathy. CARDIOVASCULAR: Regular rate and rhythm without murmurs, gallops, or rubs. RESPIRATORY: Breath sounds equal bilaterally. No accessory muscle use. GASTROINTESTINAL: Abdomen soft, non-tender, nondistended. MUSCULOSKELETAL: No cyanosis, or edema. BACK: Nontender without obvious deformity. No CVA tenderness. Pt update on day of discharge Patient is currently doing well. Denies any chest pain, shortness of breath, fever or chills. Patient is being discharged to [facility] today. Hospital Course Mr. Healy is a pleasant 61-year-old male with a history of discitis , osteomyelitis, hypertension, PTSD, hepatitis C who presented to the emergency department on 12/17/2016 with worsening lower back pain. In September 2016 patient sustained a mechanical fall on his knees following which he continued to have lower back pain. MRI scan ordered by PCP indicated possible abscess on the lumbar spine with suggestion of discitis/osteomyelitis. Patient was subsequently treated at [facility] where a CT-guided drainage of the lumbar abscess was performed but grew no organisms. He was treated by infectious disease with ceftriaxone from 10/18/2016 - 12/08/2016. Patient was referred to orthopedic surgery who performed an other lumbar MRI which suggested persistent discitis/osteomyelitis which prompted patient's visit to [facility] ED on 12/17/2016. Neurosurgery was consulted upon admission. Neurosurgery determined L2-L3 discitis/osteomyelitis with mostly moderate O stenosis and no sufficient evidence of cauda equina syndrome. IV antibiotics was continued per infectious disease recommendations. Patient was also provided physical therapy and LSO brace. Fluoroscopy guided L2-L3 disc aspiration was completed on 12/23/2016. However aspiration culture did not grow any bacteria or fungus. Gram stain showed rare gram negative rods. One blood culture was positive for Staph epi which was thought to be a contamination. Patient was continued on ceftriaxone 2 g every 24 hours. In the subsequent days further imaging studies indicated T8-T9 discitis/osteomyelitis as well. Neurosurgery evaluated again and recommended continued antibiotics and conservative management. Further biopsy/aspiration was not recommended. After discussing with neurosurgery patient was discharged to [facility] on 12/28/2016. Patient is cleared by neurosurgery to go to [facility]. At [facility], please consult Dr. Ríos (Infectious disease) for L and T spine osteomyelitis. Pt Condition on Discharge: Good Discharge Disposition: Rehab Inpatient Discharge Time: > 30 minutes Discharge Instructions DIET: Follow Instructions for: Heart Healthy Diet Activities you can perform: Regular-No Restrictions, See Additionl Instruction Other Activity Instructions: OOB with TLSO brace and assistance. This is per Dr. Powell (Neurosurgery). Follow up Referrals: Infectious Disease - Next Day with Audrey Flores MD New Medications: Ceftriaxone Inj (Ceftriaxone Inj) 2 Gm/50 Ml Bagp 2 GM IV Q24H Infection #30 Ref 0 BAG Dexamethasone (Dexamethasone) 4 Mg Tab 4 MG PO Q6HR Inflammation #120 Ref 0 TAB Diltiazem CD 24 HR (Diltiazem CD 24 HR) 120 Mg Caper 120 MG PO DAILY #30 Ref 0 CAP Amlodipine (Norvasc) 10 Mg Tab 10 MG PO DAILY Blood Pressure Management #30 TAB Metoprolol Tartrate (Lopressor) 50 Mg Tab 50 MG PO BID Afib #60 TAB Morphine ER (Morphine ER) 15 Mg Tab 15 MG PO BID Pain Management #60 TAB Oxycodone (Oxycodone) 5 Mg Tab 10 MG PO Q6HR PRN PAIN SCALE 6 TO 10 #30 TAB Oxycodone (Oxycodone) 5 Mg Tab 5 MG PO Q4H PRN PAIN SCALE 3 TO 5 #30 TAB Quetiapine (Quetiapine) 25 Mg Tab 25 MG PO BID Anxiety and/or Insomnia #60 TAB Continued Medications: Alprazolam (Xanax) 1 Mg Tab 1 MG PO Q6H PRN ANXIETY Ref 0 TAB Doxazosin (Cardura) 8 Mg Tab 8 MG PO DAILY #30 Ref 0 TAB Ranitidine (Zantac) 150 Mg Tab 150 MG PO DAILY Reduce Stomach Acid #30 Ref 0 TAB Sertraline (Sertraline) 100 Mg Tab 100 MG PO DAILY #30 Ref 0 TAB Discontinued Medications: Clonidine (Clonidine) 0.2 Mg Tab 0-2 MG PO DAILY Blood Pressure Management #60 Ref 0 TAB Lisinopril-Hctz (Lisinopril-Hctz) 20-12.5 Mg Tab 1 TAB PO BID Blood Pressure Management #30 Ref 0 TAB Morphine ER 24 HR (Morphine ER 24 HR) 20 Mg Caper 20 MG PO DAILY Pain Management Ref 0 CAP Naproxen (Naproxen) 500 Mg Tab 500 MG PO BID #60 Ref 0 TAB Verapamil (Verapamil) 120 Mg Tab 120 MG PO Q8H #90 Ref 0 TAB Rochelle Coleman DO December 28, 2016 8:24 am
[2016-12-28] MEDS: METOPROLOL TARTRATE 50 MG TAB PO SCH (09:51)
[2016-12-28] MEDS: QUEtiapine FUMARATE 25 MG TAB PO SCH (09:51)
[2016-12-28] MEDS: SERTRALINE HCL 100 MG TAB PO SCH (09:51)
[2016-12-28] MEDS: POTASSIUM CHLORIDE 20 MEQ CONTROLLED RELEASE TAB PO SCH (09:51)
[2016-12-28] MEDS: MORPHINE SULFATE 15 MG CONTROLLED RELEASE TAB PO SCH (09:51)
[2016-12-28] MEDS: FAMOTIDINE 20 MG TAB PO SCH (09:51)
[2016-12-28 12:00] VITALS: BP 152/80; PULSE 51; RESP 16; TEMP 96.1; O2SAT 96
[2017-01-07] MEDS ORDERED: WHEEMIS3 (12:39)
[2017-01-07] MEDS ORDERED: COMMODE 3-IN-11 MIS (12:39)
[2017-01-09] MEDS ORDERED: CEFT2INJ2 IV (10:40)
[2017-01-09] MEDS ORDERED: DILT-60 PO (10:40)
[2017-01-09] MEDS ORDERED: ASPI81TA11 PO (10:40)
[2017-01-09] MEDS ORDERED: QUET1TAB7 PO (10:40)
[2017-01-09] MEDS ORDERED: XANA1TAB2 PO (10:40)
[2017-01-09] MEDS ORDERED: POTA10CA PO (10:40)
[2017-01-09] MEDS ORDERED: ZANT150T2 PO (10:40)
[2017-01-09] MEDS ORDERED: DEXA0.5T PO (10:40)
[2017-01-09] MEDS ORDERED: SERT-129 PO (10:40)
[2017-01-09] MEDS ORDERED: DOCU1CAP39 PO (10:40)
[2017-01-09] MEDS ORDERED: OXYC-392 PO (10:40)
[2017-01-09] MEDS ORDERED: METO25TA3 PO (10:40)
[2017-01-09] MEDS ORDERED: MORP1TAB24 PO (10:40)
[2017-01-09] MEDS ORDERED: GABA100C4 PO (10:40)
[2017-02-07] MEDS ORDERED: OXYC-395 PO (13:47)
[2017-02-07] MEDS ORDERED: HYDR12.57 PO (13:47)
[2017-02-07] MEDS ORDERED: MORP1TAB24 PO (13:47)
== END 2016-12-28 12:53 | DRG 871 ==
LOC: NEPC 14:20 → NEDA 16:48 → N04A 21:00 → N03A 12-20 16:10 → N05B 12-25 05:00
PROVIDERS: ADMIT Hospitalist; ATTEND Hospitalist
PROC: 0S923ZX Drainage of Lumbar Vertebral Disc, Percutaneous Approach, Diagnostic (ICD-10-PCS; principal; 2016-12-23)
PROC: 02HV33Z Insertion of Infusion Device into Superior Vena Cava, Percutaneous Approach (ICD-10-PCS; 2016-12-26)
DX: A41.9 Sepsis, unspecified organism (principal); G93.41 Metabolic encephalopathy; N17.9 Acute kidney failure, unspecified; M46.26 Osteomyelitis of vertebra, lumbar region; M46.24 Osteomyelitis of vertebra, thoracic region; M46.46 Discitis, unspecified, lumbar region; I48.0 Paroxysmal atrial fibrillation; I10 Essential (primary) hypertension; E87.6 Hypokalemia; I16.0 Hypertensive urgency; F43.12 Post-traumatic stress disorder, chronic; K21.9 Gastro-esophageal reflux disease without esophagitis; M48.06 Spinal stenosis, lumbar region; M48.04 Spinal stenosis, thoracic region; M46.44 Discitis, unspecified, thoracic region; F32.9 Major depressive disorder, single episode, unspecified; F41.9 Anxiety disorder, unspecified; D64.9 Anemia, unspecified; B19.20 Unspecified viral hepatitis C without hepatic coma; G89.29 Other chronic pain; M54.16 Radiculopathy, lumbar region; F17.210 Nicotine dependence, cigarettes, uncomplicated; Z88.6 Allergy status to analgesic agent
CPT/HCPCS: 36569; 62267; 70450; 70551; 71010; 72128; 72157; 72158; 74176; 76937; 77002; 80048; 80053; 80076; 80307; 81001; 82140; 82565; 83605; 83735; 84132; 84520; 85025; 85610; 85652; 85730; 86140; 87015; 87040; 87070; 87102; 87116; 87176; 87186; 87205; 87206; 93005; 93306; 96374; 99152; 99153; A9577; A9579; J0360; J0692; J0696; J1100; J1170; J1630; J1642; J2060; J2250; J2543; J3010; J3370; J3475; J3480; J7030; J7040; J7050; L0200; L0484; Q9963

== ENCOUNTER → 2016-12-17 | Outpatient (CLI) | payer OTHER ==
[~2016-12-17] MED LIST changes: +AMLO10 PO; +ASPI81TA11 PO; +CEFT2INJ2 IV; +COMMODE 3-IN-11 MIS; +DEXA0.5T PO; +DEXA4TAB PO; +DILT-60 PO; +DOCU1CAP39 PO; +GABA100C4 PO; +GADOBENATE DIM PF 529 MG/ML 5 ML VIAL (for RAD MRI) IV ONE; +HYDR12.57 PO; +LISI20TA PO; +METO-309 PO; +METO25TA3 PO; +MORP1CAP62 PO; +MORP1TAB24 PO; +NAPR500T PO; +OXYC-392 PO; +OXYC-395 PO; +POTA10CA PO; +QUET1TAB7 PO; +SERT-129 PO; +TRIA1TAB5 PO; +WHEEMIS3
--- NOTE | 2016-12-17 13:43 | RADRPT ---
EXAM DATE/TIME: 12/17/2016 12:30 [facility] COMPARISON: No previous studies available for comparison. INDICATIONS : Increasing lower back pain in bilateral leg weakness since September. CONTRAST: 22 cc Multihance (gadobenate) IV MEDICAL HISTORY : Hypertension. SURGICAL HISTORY : Cholecystectomy. bilateral knee replacement ENCOUNTER: Subsequent ACUITY: 2 months PAIN SCORE: 6/10 LOCATION: lower back TECHNIQUE: Multiplanar multisequence MRI of the lumbar spine was performed with and without contrast. FINDINGS: The most caudal appearing lumbar vertebra is numbered as L5. VERTEBRAE: There is abnormal decreased T1 and increased T2 signal within the L2 and L3 vertebral bodies mild alvin truction of the endplates. There is also increased T2 signal within the L2-L3 disc space. The vertebr al bodies demonstrate enhancement and there is enhancement along the margins of the disc space. There is also edema within the paraspinal musculature bilaterally. Abnormal edema, fluid, enhancement also extends into the adjacent psoas muscles next to the L2-L3 level. Remaining vertebral body heights ar e maintained. CONUS: Normal level and configuration. POST CONTRAST: There is abnormal enhancement of the L2 and L3 vertebral bodies. T12-L1: No disc herniation, canal stenosis, or neural foraminal stenosis. L1-L2: No disc herniation, canal stenosis, or neural foraminal stenosis. There is mild facet hypertrophy. L2-L3: There is abnormal signal within the disc space and there is abnormal material extending posteriorly f rom the disc space into the epidural space with extension posterior to the L2 and L3 vertebral bodies . This material effaces the lateral recesses and mildly narrows the spinal canal. There is moderate f acet hypertrophy and there is moderate neuroforaminal stenosis bilaterally. There is abnormal enhance ment within the adjacent psoas muscles. L3-L4: There is decreased disc height with a diffuse disc bulge and moderate facet and ligamentum flavum hyp ertrophy. Lateral recesses are effaced. There is mild neural foraminal narrowing bilaterally. L4-L5: There is disc desiccation with decreased disc height and a diffuse disc bulge. There is also moderate facet hypertrophy. No canal stenosis is present. There is mild to moderate right neural foraminal na rrowing. L5-S1: The no disc herniation, canal stenosis, or neural foraminal stenosis is identified. There is mild fac et hypertrophy. CONCLUSION: 1. Abnormal findings at L2-L3 suggestive of discitis-osteomyelitis. Abnormal enhancing material exten ds posterior to the L2 and L3 vertebral bodies in the epidural space likely representing epidural inf lammatory or infectious material. This results in mild narrowing of the spinal canal at this level. 2. Additionally, there is edema and abnormal enhancement within the psoas muscles adjacent to the L2- L3 level. 3. Remaining levels demonstrate no significant spinal canal stenosis with areas of neural foraminal n arrowing identified, as above. Jeronimo Paul MD on December 17, 2016 at 13:35 Board Certified Radiologist. This report was verified electronically.
== END ==
LOC: HRAD 09:37
PROVIDERS: ATTEND Orthopaedic Surgery Orthopaedic Surgery of the Spine
DX: M46.36 Infection of intervertebral disc (pyogenic), lumbar region (principal)
CPT/HCPCS: 72158; 82565; 84520; A9577